=== PATIENT | female | born 1945 | race Caucasian/White ===

== ENCOUNTER → 2017-10-08 12:13 | Outpatient (CLI) | payer MEDICARE, SELFPAY ==
[2017-10-08 12:35] LABS: Color, Urine Yellow (Yellow); Glucose, Dipstick Normal (Normal); Ketone-Dipstick 5 mg/dl (Negative); Leukocyte Esterase-Dipstick 500 /ul (Negative); Nitrite-Dipstick Negative (Negative); Occult Blood-Urine 250 /ul (Negative); Protein-Dipstick 30 mg/dl (Negative); Urine Bilirubin Dipstick Negative (Negative); Urine Clarity Cloudy (Clear); Urine Urobilinogen Normal (Normal)
== END ==
PROVIDERS: Family Provider Family Medicine; PCP Family Medicine; Visit Provider Family Medicine
DX: N39.0 Urinary tract infection, site not specified (principal); R30.0 Dysuria
CPT/HCPCS: 81002; 87086; 87088; 87186

== ENCOUNTER → 2017-11-11 12:03 | Outpatient (CLI) | payer MEDICARE, BC, SELFPAY | PROVIDERS: Visit Provider Family Medicine | DX: N39.0 Urinary tract infection, site not specified (principal) | CPT/HCPCS: 87086; 87088; 87186 ==

== ENCOUNTER → 2018-09-20 12:09 | Outpatient (CLI) | payer MEDICARE, BC, SELFPAY ==
--- NOTE | 2018-09-20 12:19 | RAD_ITS ---
STUDY: X-RAY - PELVIS AND BILATERAL HIPS REASON FOR EXAM: Female, 73 years old. Left hip pain TECHNIQUE: AP view of the pelvis.? 2 views of the right hip, and 2 views of the left hip were obtained. COMPARISON: None. FINDINGS: There is a non-specific bowel gas pattern. Normal visualized soft tissue structures. Normal bilateral iliac wings, sacroiliac joints and visualized sacrum. Normal bilateral superior and inferior pubic rami. Normal pubic symphysis. Normal bilateral ischial tuberosities. 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 Normal right acetabulum. There is moderate articular joint space narrowing of the right hip. There are osteoarthritic changes of the left femoral head with marginal osteophyte formation. Normal left acetabulum. There is moderate articular joint space narrowing of the left hip. RAD/Hips B/L min 2 views w/ Pelvis IMPRESSION: Moderate degenerative changes of the hips Electronically Signed: Livan Luke DO at 11:55 EDT Tel , Service support ,
== END ==
PROVIDERS: Family Provider Family Medicine; PCP Family Medicine; Referring Provider Family Medicine; Visit Provider Family Medicine
DX: M25.559 Pain in unspecified hip (principal)
CPT/HCPCS: 73521

== ENCOUNTER → 2018-10-11 09:46 | Outpatient (CLI) | payer MEDICARE, BC, SELFPAY ==
--- NOTE | 2018-10-11 09:49 | RAD_ITS ---
PROCEDURE: Fluoroscopic guided Hip Injection DATE: October 11, 2018. INDICATION: Female, 73 years old. Chronic hip pain. PHYSICIAN: John Pierre M.D. MEDICATIONS: 40 mg of Kenalog and 4 cc of 1% lidocaine. 2% lidocaine administered subcutaneously for local anesthesia. ACCESS SITE: Left hip. NEEDLE: 22-gauge spinal needle. FLUOROSCOPY TIME (if supplied): (0:30) minutes/seconds FINDINGS: The risks, benefits, and alternatives to the procedure were explained to the patient. The specific risks of bleeding, infection, and neurovascular injury were detailed and accepted. Witnessed informed consent was obtained. A 22-gauge spinal needle was positioned under radiographic fluoroscopic localization. Approximately 2 cc of Isovue-300 instilled for localization purposes. Medication was then injected. The patient tolerated the procedure well without any immediate complications. RAD/Inj/Asp Jese Jt Should/Hip/Knee IMPRESSION: 1. Successful fluoroscopic guided hip injection. Electronically Signed: John Pierre, at 10:59 EDT , Service support ,
== END ==
PROVIDERS: Family Provider Family Medicine; PCP Family Medicine; Referring Provider Family Medicine; Visit Provider Family Medicine
DX: M16.0 Bilateral primary osteoarthritis of hip (principal)
CPT/HCPCS: 20610; 77002; Q9967

== ENCOUNTER → 2018-10-19 | Outpatient (CLI) | payer MEDICARE, BC, SELFPAY ==
[2018-10-19 12:04] LABS: Absolute Lymphocyte Count 1.74 X10^3/ul (0.83-4.51); Absolute Neutrophil Count 5.3 X10^3/uL (2.0-7.7); Basophil# 0.04 X10^3/uL; Basophil% 0.5 % (0-1); Eosinophil# 0.13 X10^3/uL; Eosinophils% 1.7 % (0-5); Hematocrit 40.6 % (37-47); Hemoglobin 13.1 g/dl (12.0-15.0); Lymphocyte # 1.74 X10^3/ul (4.0); Lymphocyte % 22.2 % (19-41); Mean Corp Hgb Conc 32.3 g/gl (32-36); Mean Corpuscular Hgb 29.1 pg (27.0-32.0); Mean Corpuscular Volume 90.2 fL (81-99); Mean Platelet Vol. 11.2 fl (6.2-12.0); Monocyte# 0.63 X10^3/uL; Neutrophil # 5.27 X10^3/uL (2.7-7.7); Neutrophil % 67.3 % (47-70); Platelet Count 260 K/mm3 (150-450); RBC Distribution Width CV 12.8 % (11.6-14.6); RBC Distribution Width SD 41.7 fl (35.1-43.9); White Blood Count 7.8 K/mm3 (4.4-11.0)
[2018-10-19 12:05] LABS: POSITIVE COUNT NO; POSITIVE DIFFERENTIAL NO; POSITIVE MORPHOLOGY NO
[2018-10-19 13:10] LABS: ALB/GLOB Ratio 1.2 RATIO (0.9-2.4); AST(SGOT) 10 U/L (15-37); Alanine Aminotransfer ALT/SGPT 23 U/L (13-56); Albumin, Serum 3.7 g/dL (3.2-5.0); Alkaline Phosphatase 65 U/L (45-117); Anion Gap 9 (5-15); BUN 14 mg/dL (7-18); BUN/Creat Ratio 16.4 RATIO (10-20); Calcium,Total 8.9 mg/dL (8.5-10.1); Chloride 110 mmol/L (98-107); Cholesterol 233 mg/dL (200); Creatinine, Serum 0.85 mg/dL (0.55-1.02); EST Glomerular Filtration Rate 69 mL/min (>60); Est Glom Filt Rate - Afr Amer 83 mL/min (>60); Globulin 3.1 g/dL (2.2-4.2); Glucose 85 mg/dL (74-106); High Density Lipoprotein 71 mg/dL; Phosphorus 3.4 mg/dL (2.5-4.9); Protein, Total 6.8 g/dL (6.4-8.2); Sodium Level 143 mmol/L (136-145); Thyroid Stim Hormone (TSH) 1.05 uIU/mL (0.358-3.74); Triglycerides 159 mg/dL; Very Low Density Lipoprotein 32 mg/dL (5-40); Vitamin D,25 Hydroxy 21.6 ng/mL (29.95-100.01)
== END | disposition home or self-care (01) ==
LOC: MFPLAB 10:37
PROVIDERS: Family Provider Family Medicine; PCP Family Medicine; Referring Provider Family Medicine; Visit Provider Family Medicine
DX: Z00.00 Encounter for general adult medical examination without abnormal findings (principal); M81.0 Age-related osteoporosis without current pathological fracture
CPT/HCPCS: 36415; 80053; 80061; 82306; 84100; 84443; 85025

== ENCOUNTER → 2019-10-24 10:33 | Outpatient (CLI) | payer MEDICARE, BC, SELFPAY ==
[2019-10-24 12:43] LABS: AST(SGOT) 14 U/L (15-37); Alanine Aminotransfer ALT/SGPT 20 U/L (13-56); Albumin, Serum 3.6 g/dL (3.2-5.0); Alkaline Phosphatase 58 U/L (45-117); Anion Gap 7 (5-15); BUN 16 mg/dL (7-18); BUN/Creat Ratio 17.6 RATIO (10-20); Calcium,Total 8.9 mg/dL (8.5-10.1); Chloride 110 mmol/L (98-107); Cholesterol 280 mg/dL (200); Creatinine, Serum 0.91 mg/dL (0.55-1.02); EST Glomerular Filtration Rate 64 mL/min (>60); Est Glom Filt Rate - Afr Amer 77 mL/min (>60); Globulin 3.5 g/dL (2.2-4.2); Glucose 98 mg/dL (74-106); High Density Lipoprotein 75 mg/dL; Phosphorus 3.6 mg/dL (2.5-4.9); Potassium 4.1 mmol/L (3.5-5.1); Protein, Total 7.1 g/dL (6.4-8.2); Sodium Level 142 mmol/L (136-145); Triglycerides 225 mg/dL; Very Low Density Lipoprotein 45 mg/dL (5-40); Vitamin D,25 Hydroxy 28.8 ng/mL
== END ==
PROVIDERS: PCP Family Medicine; Referring Provider Family Medicine; Visit Provider Family Medicine
DX: E78.5 Hyperlipidemia, unspecified (principal); E55.9 Vitamin D deficiency, unspecified; M81.0 Age-related osteoporosis without current pathological fracture
CPT/HCPCS: 36415; 80053; 80061; 82306; 84100

== ENCOUNTER → 2020-01-19 10:33 | Outpatient (CLI) | payer MEDICARE, BC, SELFPAY ==
[2020-01-19 13:07] LABS: ALB/GLOB Ratio 1.1 RATIO (0.9-2.4); AST(SGOT) 21 U/L (15-37); Alanine Aminotransfer ALT/SGPT 28 U/L (13-56); Albumin, Serum 3.9 g/dL (3.2-5.0); Alkaline Phosphatase 59 U/L (45-117); Anion Gap 7 (5-15); BUN 15 mg/dL (7-18); Calcium,Total 8.8 mg/dL (8.5-10.1); Chloride 109 mmol/L (98-107); Cholesterol 159 mg/dL (200); Creatinine, Serum 0.83 mg/dL (0.55-1.02); EST Glomerular Filtration Rate 71 mL/min (>60); Est Glom Filt Rate - Afr Amer 85 mL/min (>60); Globulin 3.4 g/dL (2.2-4.2); Glucose 97 mg/dL (74-106); High Density Lipoprotein 89 mg/dL; Protein, Total 7.3 g/dL (6.4-8.2); Sodium Level 141 mmol/L (136-145); Triglycerides 122 mg/dL; Very Low Density Lipoprotein 24 mg/dL (5-40)
== END ==
PROVIDERS: PCP Family Medicine; Referring Provider Family Medicine; Visit Provider Family Medicine
DX: E78.5 Hyperlipidemia, unspecified (principal)
CPT/HCPCS: 36415; 80053; 80061

== ENCOUNTER → 2020-12-02 11:53 | Outpatient (CLI) | payer MEDICARE, BC, SELFPAY ==
[2020-12-02 16:43] LABS: ALB/GLOB Ratio 1.1 RATIO (0.9-2.4); AST(SGOT) 18 U/L (15-37); Alanine Aminotransfer ALT/SGPT 29 U/L (13-56); Albumin, Serum 3.7 g/dL (3.2-5.0); Alkaline Phosphatase 54 U/L (45-117); Anion Gap 5 (5-15); BUN 14 mg/dL (7-18); BUN/Creat Ratio 15.4 RATIO (10-20); Calcium,Total 8.7 mg/dL (8.5-10.1); Chloride 111 mmol/L (98-107); Cholesterol 154 mg/dL (200); Creatinine, Serum 0.91 mg/dL (0.55-1.02); EST Glomerular Filtration Rate 64 mL/min (>60); Est Glom Filt Rate - Afr Amer 77 mL/min (>60); Globulin 3.4 g/dL (2.2-4.2); Glucose 97 mg/dL (74-106); High Density Lipoprotein 79 mg/dL; Potassium 3.8 mmol/L (3.5-5.1); Protein, Total 7.1 g/dL (6.4-8.2); Sodium Level 141 mmol/L (136-145); Triglycerides 147 mg/dL; Very Low Density Lipoprotein 29 mg/dL (5-40)
== END ==
PROVIDERS: PCP Family Medicine; Visit Provider Family Medicine
DX: E78.5 Hyperlipidemia, unspecified (principal)
CPT/HCPCS: 36415; 80053; 80061

== ENCOUNTER → 2021-12-08 | Outpatient (CLI) | payer MEDICARE, BC, SELFPAY ==
[2021-12-08 12:47] LABS: Vitamin D,25 Hydroxy 38.3 ng/mL
[2021-12-08 12:49] LABS: ALB/GLOB Ratio 1.1 RATIO (0.9-2.4); AST(SGOT) 21 U/L (15-37); Alanine Aminotransfer ALT/SGPT 31 U/L (13-56); Albumin, Serum 3.6 g/dL (3.2-5.0); Alkaline Phosphatase 55 U/L (45-117); Anion Gap 7 (5-15); BUN 12 mg/dL (7-18); BUN/Creat Ratio 13.8 RATIO (10-20); Calcium,Total 9.2 mg/dL (8.5-10.1); Chloride 112 mmol/L (98-107); Cholesterol 161 mg/dL (200); Creatinine, Serum 0.87 mg/dL (0.55-1.02); EST Glomerular Filtration Rate 67 mL/min (>60); Est Glom Filt Rate - Afr Amer 81 mL/min (>60); Globulin 3.2 g/dL (2.2-4.2); Glucose 96 mg/dL (74-106); High Density Lipoprotein 79 mg/dL; Potassium 4.1 mmol/L (3.5-5.1); Protein, Total 6.8 g/dL (6.4-8.2); Sodium Level 142 mmol/L (136-145); Triglycerides 158 mg/dL; Very Low Density Lipoprotein 32 mg/dL (5-40)
== END | disposition home or self-care (01) ==
LOC: MFPLAB 11:00
PROVIDERS: PCP Family Medicine; Referring Provider Family Medicine; Visit Provider Family Medicine
DX: M81.0 Age-related osteoporosis without current pathological fracture (principal); E78.5 Hyperlipidemia, unspecified
CPT/HCPCS: 36415; 80053; 80061; 82306

== ENCOUNTER → 2022-12-09 | Outpatient (CLI) | payer MEDICARE, BC, SELFPAY ==
--- NOTE | 2022-12-09 10:37 | RAD_ITS ---
ACR Level 3 findings have been noted. An addendum which confirms receipt of the report will follow. INDICATION: pain, crackles EXAMINATION/TECHNIQUE: X-RAY - XR Chest 2 Views COMPARISON: FINDINGS: LINES/DEVICES: None. LUNGS: There is a poorly defined 1 cm area of increased density in the left midlung projecting over the seventh rib posteriorly on the left. MEDIASTINUM AND CARDIOVASCULAR STRUCTURES: Cardiac silhouette not enlarged. Central airways and mediastinal contour are unremarkable. BONES AND SOFT TISSUES: Calcific densities are noted in the lower chest bilaterally possibly related to calcified breast implants. Clinical correlation recommended.. RAD/Chest PA and Lateral IMPRESSION: Likely calcified bilateral breast implants. Clinical correlation recommended. Possible nodule in the left mid to upper lung. CT chest can be obtained for further evaluation. Electronically Signed: Luis A Liang, at 11:09 EDT ,
[2022-12-09 12:47] LABS: Absolute Lymphocyte Count 1.49 X10^3/uL (0.83-4.51); Absolute Neutrophil Count 4.8 X10^3/uL (2.0-7.7); Basophil# 0.03 X10^3/uL; Basophil% 0.4 % (0-1); Eosinophil# 0.09 X10^3/uL; Eosinophils% 1.3 % (0-5); Hemoglobin 14.1 g/dL (12.0-15.0); Lymphocyte # 1.49 X10^3/ul (0.83-4.51); Lymphocyte % 21.6 % (19-41); Mean Corp Hgb Conc 31.3 g/dL (32-36); Mean Corpuscular Hgb 29.3 pg (27.0-32.0); Mean Corpuscular Volume 93.6 fL (81-99); Mean Platelet Vol. 11.1 fl (6.2-12.0); Monocyte# 0.43 X10^3/uL; Monocyte% 6.2 % (0-10); NRBC Flagged by Analyzer 0 % (0-5); Neutrophil # 4.83 X10^3/uL (2.7-7.7); Neutrophil % 70.2 % (47-70); Platelet Count 291 K/mm3 (150-450); RBC Distribution Width CV 12.6 % (11.6-14.6); RBC Distribution Width SD 43.9 fl (35.1-43.9); Red Blood Count 4.81 M/mm3 (4.2-5.4); White Blood Count 6.9 K/mm3 (4.4-11.0)
[2022-12-09 13:08] LABS: ALB/GLOB Ratio 1.1 RATIO (0.9-2.4); AST(SGOT) 13 U/L (15-37); Alanine Aminotransfer ALT/SGPT 17 U/L (13-56); Albumin, Serum 3.8 g/dL (3.2-5.0); Alkaline Phosphatase 55 U/L (45-117); Anion Gap 8 (5-15); BUN 15 mg/dL (7-18); BUN/Creat Ratio 15.3 RATIO (10-20); Calcium,Total 9.1 mg/dL (8.5-10.1); Chloride 112 mmol/L (98-107); Cholesterol 280 mg/dL (200); Creatinine, Serum 0.98 mg/dL (0.55-1.02); EST Glomerular Filtration Rate 58 mL/min (>60); Est Glom Filt Rate - Afr Amer 70 mL/min (>60); Globulin 3.6 g/dL (2.2-4.2); Glucose 99 mg/dL (74-106); High Density Lipoprotein 79 mg/dL; Potassium 4.1 mmol/L (3.5-5.1); Protein, Total 7.4 g/dL (6.4-8.2); Sodium Level 143 mmol/L (136-145); Thyroid Stim Hormone (TSH) 1.26 uIU/mL (0.358-3.74); Triglycerides 186 mg/dL; Very Low Density Lipoprotein 37 mg/dL (5-40)
== END | disposition home or self-care (01) ==
PROVIDERS: PCP Family Medicine; Referring Provider Family Medicine; Visit Provider Family Medicine
DX: R07.9 Chest pain, unspecified (principal); E78.5 Hyperlipidemia, unspecified
CPT/HCPCS: 36415; 71046; 80053; 80061; 84443; 85025

== ENCOUNTER → 2023-01-01 | Outpatient (CLI) | payer MEDICARE, BC, SELFPAY ==
--- NOTE | 2023-01-01 06:51 | CT_ITS ---
ACR Level 3 findings have been noted. An addendum which confirms receipt of the report will follow. EXAM: CT CHEST WITHOUT INTRAVENOUS CONTRAST CLINICAL INDICATION: LUNG NODULE, ABNORMAL X RAY TECHNIQUE: Helically acquired images were obtained of the chest without intravenous contrast. This CT exam was performed using one or more of the following dose reduction techniques: automated exposure control, adjustment of the mA and/or kV according to patient size, and/or use of iterative reconstruction technique. RADIATION DOSE: CTDIvol = 8.38 mGy, DLP = 293.08 mGy-cm COMPARISON: Chest x-ray 12/09/2022. FINDINGS: LUNGS AND PLEURAL SPACES: Unremarkable. No mass. No consolidation or edema. No pleural effusion or thickening. No pneumothorax. HEART: Unremarkable. Heart size is normal. No pericardial effusion. No significant coronary artery calcifications. MEDIASTINUM: Unremarkable. No mediastinal or hilar adenopathy. Esophagus is unremarkable. No hiatal hernia. THYROID: Unremarkable. No thyroid lesions. BONES/JOINTS: The apparent nodule noted on the chest x-ray represents a bony bridge between the third and fourth ribs anterolaterally on the left. No suspicious lytic or blastic abnormality. SOFT TISSUES: Subareolar left breast mass measuring 2.3 x 1.7 x 2.0 cm. Mass measuring 2.5 x 1.8 x 1.7 cm inferiorly in the right breast abutting breast implant. Calcified bilateral breast implants. VASCULATURE: Unremarkable. Thoracic aorta is non-dilated. CT/Chest without Contrast IMPRESSION: 1. The apparent nodule noted on the chest x-ray represents a bony bridge between the third and fourth ribs anterolaterally on the left. No pulmonary nodule. 2. Left-sided breast masses in the subareolar and inferior aspects of the left breast adjacent to the breast implant. Recommend follow-up and comparison with prior studies. Electronically Signed: Rudy Lugo MD at 7:55 EDT ,
--- NOTE | 2023-01-01 15:16 | STRESSREP_ITS ---
Stress Test Report Treadmill sestamibi myocardial perfusion stress test. Indication; 77-year-old female symptoms of chest pain retrosternal radiating to the left arm and to the throat no other associated symptoms reported. Stress protocol: Resting EKG demonstrates. Normal sinus rhythm. This patient exercised according to standard Terence protocol For a total of 3 minutes Achieving a work level of max METS 4.6 Resting heart rate of 57 bpm. Maximal heart rate achieved is 125 bpm. This value represented 88% of the maximal age predicted heart rate. Resting blood pressure of 144/62 mmHg. At maximal stress the blood pressure recorded 202/60 mmHg. The exercise treadmill test was terminated due to target heart rate achieved patient also experienced symptoms of shortness of breath. Myocardial perfusion protocol. 13 mCi ]of Technetium 99m Sestamibi was injected at rest. Following maximal stress 40.1 mCi ]of Technetium 99m sestamibi was injected. Stress images were obtained stress and rest images were reconstructed and compared in the short axis vertical and horizontal long axis. Gated images were also obtained Perfusion SPECT analysis: Review of the images demonstrate normal uptake of sestamibi at rest, post stress images demonstrate similar uptake of sestamibi to the resting images, homogeneous tracer uptake With no evidence of reversible myocardial ischemia. Gated SPECT analysis: The gated ejection fraction is 59%. Normal LV wall motion and normal LV systolic function Conclusion: Negative treadmill sestamibi myocardial fusion study for significant ischemia Normal LV systolic function and normal LV wall motion. Amanuel Braden MD,FACC,[facility]
== END | disposition home or self-care (01) ==
LOC: CT 06:39
PROVIDERS: PCP Family Medicine; Referring Provider Family Medicine; Visit Provider Family Medicine
DX: R91.1 Solitary pulmonary nodule (principal); R07.9 Chest pain, unspecified
CPT/HCPCS: 71250; 78452; 93017; A9500; A4216

== ENCOUNTER → 2023-01-06 | Outpatient (CLI) | payer MEDICARE, BC, SELFPAY ==
--- NOTE | 2023-01-06 11:20 | RAD_ITS ---
STUDY: X-RAY - ABDOMEN/PELVIS REASON FOR EXAM: Female, 77 years old. Lower quadrant pain. TECHNIQUE: AP supine and upright views of the abdomen and pelvis on 4 images. COMPARISON: None. FINDINGS: Normal visualized lung bases. Normal bowel gas pattern with air seen to the rectosigmoid. No disproportionate dilatation of bowel or free intra-abdominal air identified. . The visualized liver, spleen and kidneys are grossly normal in size and morphology. Normal soft tissue structures. Normal visualized osseous structures. RAD/Abd Inc Decub and/or Erect IMPRESSION: No acute abnormality of the lower chest, abdomen or pelvis. Electronically Signed: Rodney Espinoza MD at 14:25 EDT ,
== END | disposition home or self-care (01) ==
PROVIDERS: PCP Family Medicine; Referring Provider Family Medicine; Visit Provider Family Medicine
DX: R10.9 Unspecified abdominal pain (principal)
CPT/HCPCS: 74019

== ENCOUNTER → 2023-01-08 | Outpatient (CLI) | payer MEDICARE, BC, SELFPAY ==
--- NOTE | 2023-01-08 12:38 | US_ITS ---
STUDY: ULTRASOUND BREAST - RIGHT REASON FOR EXAM: Female, 77 years old. Left breast masses seen on CT scan. Axillary lymph nodes. TECHNIQUE: Axial and longitudinal images of the RIGHT breast were performed with a high resolution ultrasound transducer. # OF IMAGES: 48 COMPARISON: Comparison is made with prior mammogram done earlier today. FINDINGS: RIGHT Breast: The axillary region of the right breast was examined by ultrasound. Mildly enlarged right axillary lymph nodes are seen. The largest measures 1.4 cm x 1.3 cm x 0.8 cm. They are slightly hyperechoic. Biopsy indicated. IMPRESSION: Heterogeneous enlargement of the right axillary lymph nodes. Biopsy recommended. ASSESSMENT CATEGORY: BIRADS Category 4: Suspicious - Biopsy Should Be Considered. A letter regarding these results will be sent to the patient by the facility within 30 days. Electronically Signed: John Pierre MD at 16:33 EDT , STUDY: ULTRASOUND BREAST - LEFT REASON FOR EXAM: Female, 77 years old. Left breast nodules. TECHNIQUE: Axial and longitudinal images of the LEFT breast were performed with a high resolution ultrasound transducer. # OF IMAGES: 48 COMPARISON: Comparison is made with prior mammogram done earlier today. FINDINGS: LEFT Breast: The lower half of the left breast was examined with ultrasound. There is a 2 cm x 2.6 x 1.2 cm echogenic nodule with posterior acoustical shadowing at the 6:00 position of the breast at 3 cm from the nipple. Biopsy recommended. Enlarged left axillary lymph node measuring 1.8 cm x 1.5 cm x 0.9 cm. US/Breast Limited Unilateral IMPRESSION: 2.6 cm x 2 cm x 1.2 cm echogenic nodule with posterior acoustical shadowing at the 6:00 position breast at 3 cm from the nipple. Biopsy recommended. Enlarged left axillary lymph nodes. ASSESSMENT CATEGORY: BIRADS Category 4: Suspicious - Biopsy Should Be Considered. A letter regarding these results will be sent to the patient by the facility within 30 days. Electronically Signed: John Pierre MD at 16:34 EDT ,
--- NOTE | 2023-01-08 12:38 | BI_ITS ---
MAMMOGRAPHY - BILATERAL DIAGNOSTIC REASON FOR EXAM: Female, 77 years old. History of bilateral breast masses. PERTINENT HISTORY: Daughter with breast cancer. Bilateral breast implants. TECHNIQUE: Digital bilateral breast shadi (3D mammographic acquisition) in the CC and MLO projections. 2-D mediolateral oblique (MLO) and craniocaudad (CC) views of both breasts were obtained. CAD: Full Field Digital Mammography with Computer Added Detection was performed. COMPARISON: None. Baseline examination. FINDINGS: Breast Composition: There are scattered areas of fibroglandular density. Calcification of the bilateral breast implants. There is a 2.2 cm x 1.5 cm irregular nodular density in the central deep aspect of the left breast. Microcalcifications are seen within it. Enlarged bilateral axillary lymph nodes. No other significant abnormalities are identified. BI/DIAG MAMM W/CAD, BILAT IMPRESSION: 2.2 cm x 1.5 cm irregular nodular density in the central deep aspect of the left breast with microcalcifications. Enlargement of the bilateral axillary lymph nodes. Dense calcification of the bilateral breast implants. Correlation with ultrasound is recommended. ASSESSMENT CATEGORY: BIRADS Category 0: Incomplete. Need additional imaging evaluation. A letter regarding these results will be sent to the patient by the facility within 30 days. Approximately 10% of breast cancers are not detected by mammography. A normal mammogram should not delay biopsy of a clinically suspicious abnormality. Electronically Signed: John Pierre MD at 11:11 EDT ,
== END | disposition home or self-care (01) ==
LOC: OPBI 12:38
PROVIDERS: PCP Family Medicine; Referring Provider Family Medicine; Visit Provider Family Medicine
DX: R92.8 Other abnormal and inconclusive findings on diagnostic imaging of breast (principal)
CPT/HCPCS: 76642; 77062; 77066; G0279

== ENCOUNTER → 2023-12-15 | Outpatient (CLI) | payer MEDICARE, BC, SELFPAY ==
[2023-12-15 12:56] LABS: PTHIN 55.1 pg/mL (18.4-80.1)
[2023-12-15 13:06] LABS: Vitamin D,25 Hydroxy 32.5 ng/mL
[2023-12-15 13:22] LABS: ALB/GLOB Ratio 1.1 RATIO (0.9-2.4); AST(SGOT) 18 U/L (15-37); Alanine Aminotransfer ALT/SGPT 21 U/L (13-56); Albumin, Serum 3.8 g/dL (3.2-5.0); Alkaline Phosphatase 55 U/L (45-117); Anion Gap 9 (5-15); BUN 17 mg/dL (7-18); BUN/Creat Ratio 17.9 RATIO (10-20); Calcium,Total 9.2 mg/dL (8.5-10.1); Chloride 110 mmol/L (98-107); Cholesterol 205 mg/dL (200); Creatinine, Serum 0.95 mg/dL (0.55-1.02); EST Glomerular Filtration Rate 60 mL/min (>60); Est Glom Filt Rate - Afr Amer 72 mL/min (>60); Globulin 3.5 g/dL (2.2-4.2); Glucose 103 mg/dL (74-106); High Density Lipoprotein 75 mg/dL; Potassium 4.1 mmol/L (3.5-5.1); Protein, Total 7.3 g/dL (6.4-8.2); Sodium Level 140 mmol/L (136-145); Thyroid Stim Hormone (TSH) 1.11 uIU/mL (0.358-3.74); Triglycerides 163 mg/dL; Very Low Density Lipoprotein 33 mg/dL (5-40)
== END | disposition home or self-care (01) ==
LOC: MFPLAB 10:55
PROVIDERS: PCP Family Medicine; Visit Provider Family Medicine
DX: I10 Essential (primary) hypertension (principal); E78.5 Hyperlipidemia, unspecified; M81.0 Age-related osteoporosis without current pathological fracture
CPT/HCPCS: 36415; 80053; 80061; 82306; 83970; 84443

== ENCOUNTER → 2024-09-07 | Outpatient (CLI) | payer MEDICARE, BC, SELFPAY ==
--- NOTE | 2024-09-07 11:21 | RAD_ITS ---
PROCEDURE: ABD INC DECUB AND/OR ERECT 09/07/2024 REASON FOR EXAM: CHANGE IN BOWEL HABIT TECHNIQUE: Supine and upright view abdomen. FINDINGS: Bowel gas: Bowel gas pattern is normal. No evidence of bowel obstruction. Calcifications: No suspicious calcifications. Bones: The bones are unremarkable. Other: RAD/Abd Inc Decub and/or Erect IMPRESSION: No bowel obstruction or pneumoperitoneum. Reading Location: [id number]
[2024-09-07 15:58] LABS: Absolute Lymphocyte Count 2.11 X10^3/uL (0.83-4.51); Absolute Neutrophil Count 5.5 X10^3/uL (2.0-7.7); Basophil# 0.06 X10^3/uL; Basophil% 0.7 % (0-1); Eosinophil# 0.11 X10^3/uL; Eosinophils% 1.3 % (0-5); Hematocrit 40.5 % (37-47); Lymphocyte # 2.11 X10^3/ul (0.83-4.51); Lymphocyte % 25.1 % (19-41); Mean Corp Hgb Conc 32.1 g/dL (32-36); Mean Corpuscular Hgb 29.5 pg (27.0-32.0); Mean Platelet Vol. 11.6 fl (6.2-12.0); Monocyte# 0.62 X10^3/uL; Monocyte% 7.4 % (0-10); NRBC Flagged by Analyzer 0 % (0-5); Neutrophil % 65.3 % (47-70); Platelet Count 280 K/mm3 (150-450); RBC Distribution Width CV 12.6 % (11.6-14.6); RBC Distribution Width SD 42.8 fl (35.1-43.9); White Blood Count 8.4 K/mm3 (4.4-11.0)
[2024-09-07 16:10] LABS: Erythrocyte Sedimentation Rate 18 mm/hr (0-30)
[2024-09-07 16:34] LABS: ALB/GLOB Ratio 1.5 RATIO (0.9-2.4); AST(SGOT) 19 U/L (<=31); Alanine Aminotransfer ALT/SGPT 12 U/L (<=34); Albumin, Serum 4.2 g/dL (3.4-4.8); Alkaline Phosphatase 61 U/L (35-104); Anion Gap 15 (5-15); BUN 15 mg/dL (4-19); BUN/Creat Ratio 16.9 RATIO (10-20); Calcium,Total 9.6 mg/dL (7.6-11.0); Carbon Dioxide 19.7 mmol/L (21.0-32.0); Chloride 107 mmol/L (98-108); EST Glomerular Filtration Rate 64 (>60); Globulin 2.9 g/dL (2.2-4.2); Glucose 92 mg/dL (70-99); Potassium 3.9 mmol/L (3.3-5.1); Protein, Total 7.1 g/dL (5.9-8.4); Sodium Level 142 mmol/L (133-145); Total Bilirubin 0.68 mg/dL (0.00-1.30)
== END | disposition home or self-care (01) ==
LOC: MTLAB 11:19
PROVIDERS: PCP Family Medicine; Referring Provider Family Medicine; Visit Provider Family Medicine
DX: R19.4 Change in bowel habit (principal)
CPT/HCPCS: 36415; 74019; 80053; 84443; 85025; 85652

== ENCOUNTER 2024-10-27 14:05 | Outpatient (CLI) | payer MEDICARE, BC, SELFPAY ==
--- NOTE | 2024-10-27 12:55 | BRBX_PTH ---
PATIENT: KARL CABA LOC: [facility] U#:[id number] AGE/SX: 79/F ROOM: RE10/27/[address]: Dr. Jas Palmer MD : 1945 BED: DIS: 10/27/2024 SPEC #: [id number] RECD: 10/27/24 13:55 STATUS: MATT REAllan #: [id number] LLUVIA: 10/27/24 12:[address]: Jas Palmer DEPT: SURGICAL PATHOLOGY RECD BY: Randy Su ENTERED: 10/27/24 15:25 SP TYPE: BREAST BX OTHR DR: Dr. Tomás Baker MD Tissues: A - Left breast, NOS B - Axillary lymph node, NOS Procedures: Immunohistochemical Stains Surgery Specimen Level IV IHC Stain ADDITIONAL HEADER OPERATION: Core needle biopsy of left breast mass and lymph node PRE-OP DIAGNOSIS: Left breast mass TISSUE SUBMITTED: A- Left breast mass biopsy, B- Lymph node, left axilla biopsy Ischemic Time: 1 minute Fixation Time: 7 hours MICROSCOPIC DIAGNOSIS A. Left breast mass, core biopsy: * Invasive ductal carcinoma NST, Grade 2 (tubule 3, nuclear 2, mitosis 1) at least 0.8 cm. * Estrogen Receptor: positive (100%, strong intensity) * Progesterone Receptor: positive (100%, strong intensity) * [id number]: pending, to be reported in an addendum. * See Comment. B. 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 * Note: Although the tumor is compatible with the breast primary observed in part A, there are mild histologic differences; therefore IHC was performed - see Comment. * Estrogen Receptor: positive (100%, strong intensity) * Progesterone Receptor: positive (80%, strong intensity) * [id number]: pending, to be reported in an addendum. COMMENT A, B) Additional IHCs were performed on both specimens A and B, and both tissues reacted similarly: Positive: E-cadherin, SANDY-3, CK7, Synaptophysin. Negative: CK5/6, p40, Mammaglobin, CK20, Chromogranin (part B shows weak positivity for Chromogranin). MICROSCOPIC DESCRIPTION Slides are reviewed. All matched controls reacted appropriately. These tests were developed and their performance characteristics determined by [facility]. They may not have been cleared or approved by the U.S. Food and Drug Administration. The FDA has determined that such clearance or approval is not necessary.? The above immunohistochemical/dualISH?markers are ordered and reviewed by the Pathologist. GROSS DESCRIPTION Received in 2 formalin containers labeled patient's name and date of .? Designated as: A.? #1 left breast tissue are 2 cowart soft tissue cores, 1.2 cm and 2.2 cm in length by 0.1 cm in diameter.? Entirely submitted in 1 cassette. Cold ischemic time: 1 minuteFormalin fixation time: 7 hours B.? #2 left axillary lymph node biopsy are 2 cowart soft tissue fragments, 0.9 cm and a 1.1 cm in length by 0.1 cm in diameter.? Entirely submitted in 1 cassette. IN 10/27/2024 CPT:03523c9, [id number], [id number] ADDENDUM ADDENDUM ADDENDUM ADDENDUM ADDENDUM ADDENDUM 11/06/2024 14:57 ADDENDUM 11/07/2024 13:39 ADDENDUM 11/15/2024 09:00 ADDENDUM 11/06/2024 14:57 ADDENDUM 11/06/2024 14:57 ADDENDUM 11/06/2024 14:57 ADDENDUM 11/06/2024 14:57 This addendum is to report the results of the Ki67 proliferative index (as determined by manual immunohistochemistry method). A. The Ki67 proliferative index is approximately 30-35%. B. The Ki67 proliferative index is approximately 35-40%. This addendum is to report the RSW0UFS results: A. UDN3OGD: equivocal (2+) B. UFL1GJM: equivocal (2+) [id number] is pending at [facility] and will be reported in a subsequent addendum. This addendum is added to incorporate an outside pathology consultation report. The case was examined at [facility] (#[id number] A1 , B1) and the following diagnosis was rendered. A. Left breast mass, core biopsy: Her2 : Negative HER2 SCORE REPORT: HER2 SCORE: NEGATIVE HER2 / CEP17 RATIO: 1.3 HER2 COPY NUMBER / CELL: 3.9 B. Lymph node, left axilla, biopsy: Her2 : Negative HER2 SCORE REPORT: HER2 SCORE: NEGATIVE HER2 / CEP17 RATIO: 1.2 HER2 COPY NUMBER / CELL: 3.9 Please see complete above mentioned consultation report in EMR
== END 2024-10-27 23:59 | disposition home or self-care (01) ==
LOC: LABSPEC 14:08
PROVIDERS: PCP Family Medicine; Referring Provider Surgery; Visit Provider Surgery
DX: C50.912 Malignant neoplasm of unspecified site of left female breast (principal); N63.20 Unspecified lump in the left breast, unspecified quadrant
CPT/HCPCS: 88305; 88341; 88342

== ENCOUNTER 2024-11-22 13:59 | Observation (INO) | payer MEDICARE, BC, SELFPAY ==
--- NOTE | 2024-11-21 10:43 | EKG12_ITS ---
Test Reason : PRE OP Blood Pressure : */* mmHG Vent. Rate : 82 BPM Atrial Rate : 82 BPM P-R Int : 150 ms QRS Dur : 88 ms QT Int : 394 ms P-R-T Axes : 67 60 81 degrees QTcB Int : 460 ms Normal sinus rhythm Nonspecific ST and T wave abnormality Abnormal ECG Confirmed by YAZAN ALMAGUER, LOIS ([id number]), city editor CHRISTIAN CR ([id number]) on 11/22/2024 7:13:25 AM Referred By: Jas Palmer Confirmed By: LOIS HAND MD
--- NOTE | 2024-11-21 18:32 | PAT.ANESEVAL ---
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 When Was Last Pacemaker Check QUESTION #4 FULL TEXT: You/Your Family Experience fever (hyperthermia) with Anesthesia Last Oral Intake Last Oral intake: Last Oral Intake NPO since Meds taken in AM with sips of water? 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 Female Yes 11/21/24 08:31 HX of Motion Sickness No 11/21/24 08:31 HX of N/V After Surgery No 11/21/24 08:31 Non-Smoker Yes 11/21/24 08:31 Duration of Surgery greater Yes 11/21/24 08:31 than 60 minutes Number of Risk Factors 3 11/21/24 08:31 PONV Score Moderate Risk 11/21/24 08:31 Height & Weight Height & Weight: Anesthesia: Height & Weight Height 5 ft 1 in 11/16/24 13:31 Respiratory Assessment Respiratory Assessment - rounding machine operator: Respiratory Tract Infection Hx - rounding machine operator Hx Respiratory Tract Infection No 11/21/24 08:31 STOP Sleep Apnea STOP Sleep Apnea - rounding machine operator: STOP Sleep Apnea - rounding machine operator Hx Hypertension Yes: CONTROLLED WITH MED 11/21/24 08:31 Hx Sleep Apnea No 11/21/24 08:31 CPAP BIPAP Do you snore loudly (louder No 11/21/24 08:31 than talking or can be heard Do you often feel tired/ No 11/21/24 08:31 fatigued/ sleepy during daytime? Has anyone observed you stop No 11/21/24 08:31 breathing during sleep? STOP Results Negative 11/21/24 08:31 QUESTION #5 FULL TEXT : Do you snore loudly (louder than talking or can be heard through closed doors)? 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 Specify any problems Hx of Preganancy in last 3 No 11/21/24 08:31 Months Nurse Filling Out Transfusion DSCHRIBER 11/21/24 08:31 & Questions: Date: 11/21/24 11/21/24 08:31 Time: 08:33 11/21/24 08:31 Patient unable to answer at this time (ie. confused, unrespo /Reproduction History /Reproductive History - rounding machine operator: /Reproductive Hx- rounding machine operator Hx Now No 11/21/24 08:31 Gestational Age (in weeks): EDC: Hx Hx Para Hx Section SAB No 11/21/24 08:31 Active Medications Active Medications: Current Medications Generic Name Dose Route Start Last Admin Trade Name Freq PRN Reason Stop Dose Admin Cefazolin Sodium 2 gm/ Sodium 110 mls @ 200 mls/hr 11/22/24 13:00 Chloride IV 11/22/24 13:32 INTRAOP ONE [facility] Medical History (Updated 11/21/24 @ 08:40 by Angelika Wick) Loss of hearing Wears glasses Post-menopausal Anxiety Alcohol use Headache History of diverticulosis Shortness of breath on exertion Non-smoker History of stress test Breast cancer Mass of left breast High cholesterol HTN (hypertension) Home Medications ?Medication ?Instructions ?Recorded ?Last Taken ?Type aspirin 81 mg tablet 81 mg PO QDAY 10/27/24 Unknown History lisinopril 40 mg tablet 40 mg PO QDAY 10/27/24 Unknown History pravastatin 10 mg tablet 10 mg PO QDAY 10/27/24 Unknown History Allergy/AdvReac Type Severity Reaction Status Date / Time adhesive Allergy Rash Verified 11/21/24 08:29 Family History Daughter Breast cancer Father Heart disease Surgical History (Updated 11/21/24 @ 08:40 by Angelika Wick) Hx of colonoscopy Hx of tonsillectomy S/P hysterectomy S/P bilateral breast implants Social History Smoking Status: Never smoker alcohol intake: current substance use type: does not use additional social history: pt denies blood clotting issues denies vaping, denies edibles, denies marijuana use. Audit: Pertinent Findings Pertinent Findings EKG Perinent findings: November 21, 2024. Normal sinus rhythm. Nonspecific ST and T wave abnormality. Stress test pertinent findings: January 01, 2023. EF of 59%. Negative treadmill perfusion study for significant ischemia. Recommendation Anesthesia Recommendation Anesthesia recommendation: OPTIMIZED for anesthesia
[2024-11-22] VITALS (15 sets, daily range): BP systolic 118–197; BP diastolic 49–97; PULSE 65–86; RESP 16–18; TEMP 36.4–36.8; O2SAT 92–100; BMI 28.3; BMI 29.5
--- NOTE | 2024-11-22 11:44 | PCM.HP.BLA ---
History and Physical Date of Admission: 11/22/24 Intake Vital Signs 10/28/2511:41 11/17/2507:00 Height 5 ft 1 in Weight: 151 lb BMI 28.5 BP 195/78 H 193/76 H Blood Pressure Location Rt brachial Position Sitting Sitting Respiration 17 17 Pulse 67 74 Pulse Source Monitor Monitor Pulse Oximetry (%) 97 Oxygen Delivery Method room air room air Intake Visit Reasons: Discuss possible surgery Chief Complaint: discuss surgery Is patient in pain?: No Allergies adhesive Allergy (Verified 11/16/24 08:02) Rash Medications ?Medication ?Instructions ?Recorded ?Confirmed ?Type aspirin 81 mg tablet 81 mg PO QDAY 10/27/24 11/16/24 History lisinopril 40 mg tablet 40 mg PO QDAY 10/27/24 11/16/24 History pravastatin 10 mg tablet 10 mg PO QDAY 10/27/24 11/16/24 History Have you fallen in the past year?: No PFSH Medical History Breast cancer Mass of left breast High cholesterol HTN (hypertension) Surgical History (Updated 10/27/24 @ 12:31 by Yvette De Jesus) S/P hysterectomy S/P bilateral breast implants Family History (Updated 10/27/24 @ 12:32 by Yvette De Jesus) Daughter Breast cancerFather Heart disease Social History (Updated 10/27/24 @ 12:32 by Yvette De Jesus) Smoking Status: Never smoker alcohol intake: current HPI HPI HPI: Patient is an 79-year-old female with left breast cancer. She is here because the mass continues to bleed through her nipple. She is having blood loss daily. ROS General General: No weight change, appetite, fatigue, colon cancer, breast cancer or weakness HEENT HEENT: No difficulty swallowing, eye injury, eye surgery, swollen glands or hoarseness Endo Endocrine: No thyroid disease, diabetes mellitus, thyroid cancer, Hair loss, heat intolerance or cold intolerance Skin Skin: No rash or changing moles Breast Breast: No left breast lump, right breast lump, nipple discharge, breast pain, abnormal mammogram, abnormal US or breast enlargement Musc Musculoskeletal: No back problems, arthritis, rheumatoid arthritis, gout or joint pain Cardio Cardiovascular: No murmur, pacemaker, heart disease, atrial fibrillation, high blood pressure, heart attack, heart stent, palpitations, shortness of breath with exertion or chest pain Psych Psychiatric: No depression, anxiety or hearing voices Resp Respiratory: No shortness of breath, No sleep apnea, Yes cough, No COPD, No asthma, No emphysema and No wheezing Gastro Gastrointestinal: No abdominal pain, No nausea or vomiting, Yes diarrhea, Yes constipation, No blood in stool, No acid reflux, No hemorrhoids, No ulcers, No gallbladder problem and No black,tarry stools [place] Hematologic: No blood thinners, No blood disorders, Yes bleeding, No anemia and No blood clots Neuro Neurologic: No system reviewed and no additional complaints, except as documented, No as per HPI, No abnormal gait, No abnormal hearing, No abnormal movements, No abnormal speech, No behavioral changes, No burning sensations, No confusion, No convulsions, No disequilibrium, No dizziness, No localized weakness, No frequent falls, No headache(s), No lack of coordination, No loss of vision, No memory loss, Yes numbness, No other visual disturbances, No radicular pain, No restless legs, No sensory deficit, No syncope, Yes tingling, No tremor(s), No weakness and No other Exam Const General: cooperative Orientation: alert and oriented x3 HENMT Head: normal to inspection Neck Neck: normal visual inspection and full ROM Chest Chest palpation & inspection: normal inspection of the chest Resp Effort & Inspection: normal respiratory effort Auscultation: clear to auscultation bilaterally Cardio Rate: regular rate Rhythm: regular rhythm GI Inspection: non-distended Palpation: soft and nontender Skin General: no rashes or lesions noted Neuro General: patient alert and patient oriented x3 Extrem General: full ROM Psych Appearance: grossly normal Mental Status: mental status grossly normal Assessment and Plan Assessment and Plan (1) Breast cancer: Status: Acute Qualifiers: Breast location: central portion of breast Estrogen receptor status: positive Patient sex: female Laterality: left Qualified Code(s): C50.112 - Malignant neoplasm of central portion of left female breast; Z17.0 - Estrogen receptor positive status [ER+] Plan: The patient has breast cancer on the left. She has decided she does not want chemotherapy or radiation. Continues to bleed daily. There is a significant amount of bleeding and she does show me pictures of her close that are saturated in blood. She would like a mastectomy to clear this up so that she stops bleeding. She has breast implants. I discussed the case with Dr. Mathew. I plan to perform a palliative mastectomy with implant removal. I discussed this with her in detail. I discussed the risks including but not limited to bleeding, infection, injury to underlying organs. I also discussed that this is not curative as she already has metastatic disease. I still encouraged her to see the oncologist to discuss possible treatment. They will also perform metastatic workup. Plan for mastectomy on November 22 with assistance from plastics. Jas Palmer MD Pager: [facility] [address] [place] [address], [address] [place] [address] Office: I have examined the patient and the H&P has been reviewed. There are no clinical changes since date of exam.
--- NOTE | 2024-11-22 11:53 | PCM.PRE.AN2 ---
ASA Classification* ASA Classification ASA Classification: 2 Assessment & Plan Anesthesia* Anesthesia Assessment Anesthesia Assessment: Discussed sedation and/or anesthesia options, risks, benefits, and alternatives with patient/parents/legal guardian/POA. Questions invited. The patient/parents/legal guardian/POA seems to understand and agrees to proceed with anesthesia plan. Reviewed the physical assessment, medical history, allergy history and patient home medications list prior to surgery/procedure/anesthetic and documented any changes. Performed airway and anesthesia risk assessments. Anesthesia Type Anesthesia Type: General History Source History Obtained from:: Patient and Chart Anesthesia Focused Assessment* Oxygen Delivery Method: Room Air Airway Assessment Mouth opens: >3 cm Mallampati Score: II Teeth Condition: Caps/Crowns Neck Range of motion (ROM): Limited ROM Labs Anesthesia Preop lab: CBC WBC 8.4 K/mm3 (4.4-11.0) 09/07/24 11:09/07/24 RBC 4.40 M/mm3 (4.2-5.4) 09/07/24 11:09/07/24 Hgb 13.0 g/dL (12.0-15.0) 09/07/24 11:09/07/24 Hct 40.5 % (37-47) 09/07/24 11:09/07/24 Plt Count 280 K/mm3 (150-450) 09/07/24 11:09/07/24 CHEMISTRY Potassium 3.9 mmol/L (3.3-5.1) 09/07/24 11:09/07/24 Sodium 142 mmol/L (133-145) 09/07/24 11:09/07/24 Phosphorus 3.6 mg/dL (2.5-4.9) 10/24/19 10:38 10/24/19 BUN 15 mg/dL (4-19) 09/07/24 11:09/07/24 Creatinine 0.90 mg/dL (0.70-1.20) 09/07/24 11:09/07/24 Glucose 92 mg/dL (70-99) 09/07/24 11:09/07/24 TSH 1.050 uIU/mL (0.300-4.200) 09/07/24 11:09/07/24 COAG Pre-Assessment Diagnosis/Proposed Procedure Planned Operative Procedure(s): LEFT MASTECTOMY AND LEFT IMPLANT REMOVAL Anesthesia History Anesthesia History - reinforcing steel placer: Anesthesia History - reinforcing steel placer Hx Hospitalization No 11/21/24 08:31 Any Problems With Anesthesia No 11/21/24 08:31 Cholinesterase deficiency No 11/21/24 08:31 You/Your Family Experience No 11/21/24 08:31 fever (hyperthermia) with Relationship Recent Exposure to Contagious Disease Does patient have nerve No 11/21/24 08:31 stimulator Patient instructed to have device shut off --Does patient have Pacemaker or ICD? When Was Last Pacemaker Check QUESTION #4 FULL TEXT: You/Your Family Experience fever (hyperthermia) with Anesthesia Last Oral Intake Last Oral intake: Last Oral Intake NPO since Meds taken in AM with sips of water? Meds patient instructed to take am of surgery PONV PONV - reinforcing steel placer: PONV - reinforcing steel placer Female Yes 11/21/24 08:31 HX of Motion Sickness No 11/21/24 08:31 HX of N/V After Surgery No 11/21/24 08:31 Non-Smoker Yes 11/21/24 08:31 Duration of Surgery greater Yes 11/21/24 08:31 than 60 minutes Number of Risk Factors 3 11/21/24 08:31 PONV Score Moderate Risk 11/21/24 08:31 Height & Weight Height & Weight: Anesthesia: Height & Weight Height 5 ft 1 in 11/16/24 13:31 Respiratory Assessment Respiratory Assessment - reinforcing steel placer: Respiratory Tract Infection Hx - reinforcing steel placer Hx Respiratory Tract Infection No 11/21/24 08:31 STOP Sleep Apnea STOP Sleep Apnea - reinforcing steel placer: STOP Sleep Apnea - reinforcing steel placer Hx Hypertension Yes: CONTROLLED WITH MED 11/21/24 08:31 Hx Sleep Apnea No 11/21/24 08:31 CPAP BIPAP Do you snore loudly (louder No 11/21/24 08:31 than talking or can be heard Do you often feel tired/ No 11/21/24 08:31 fatigued/ sleepy during daytime? Has anyone observed you stop No 11/21/24 08:31 breathing during sleep? STOP Results Negative 11/21/24 08:31 QUESTION #5 FULL TEXT : Do you snore loudly (louder than talking or can be heard through closed doors)? 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 Specify any problems Hx of Preganancy in last 3 No 11/21/24 08:31 Months Nurse Filling Out Transfusion DSCHRIBER 11/21/24 08:31 & Questions: Date: 11/21/24 11/21/24 08:31 Time: 08:33 11/21/24 08:31 Patient unable to answer at this time (ie. confused, unrespo /Reproduction History /Reproductive History - reinforcing steel placer: /Reproductive Hx- reinforcing steel placer Hx Now No 11/21/24 08:31 Gestational Age (in weeks): EDC: Hx Hx Para Hx Section SAB No 11/21/24 08:31 Active Medications Active Medications: Current Medications Generic Name Dose Route Start Last Admin Trade Name Freq PRN Reason Stop Dose Admin Cefazolin Sodium 2 gm/ Sodium 110 mls @ 200 mls/hr 11/22/24 13:00 Chloride IV 11/22/24 13:32 INTRAOP ONE Lactated Ringer's 1,000 mls @ 15 mls/hr 11/22/24 11:30 IV .Q48H DELMIS PFSH Medical History (Updated 11/21/24 @ 08:40 by Angelika Wick) Loss of hearing Wears glasses Post-menopausal Anxiety Alcohol use Headache History of diverticulosis Shortness of breath on exertion Non-smoker History of stress test Breast cancer Mass of left breast High cholesterol HTN (hypertension) Home Medications ?Medication ?Instructions ?Recorded ?Last Taken ?Type aspirin 81 mg tablet 81 mg PO QDAY 10/27/24 Unknown History lisinopril 40 mg tablet 40 mg PO QDAY 10/27/24 Unknown History pravastatin 10 mg tablet 10 mg PO QDAY 10/27/24 Unknown History Allergy/AdvReac Type Severity Reaction Status Date / Time adhesive Allergy Rash Verified 11/22/24 11:55 Family History Daughter Breast cancer Father Heart disease Surgical History (Updated 11/21/24 @ 08:40 by Angelika Wick) Hx of colonoscopy Hx of tonsillectomy S/P hysterectomy S/P bilateral breast implants Social History Smoking Status: Never smoker alcohol intake: current substance use type: does not use additional social history: pt denies blood clotting issues denies vaping, denies edibles, denies marijuana use. Review of Systems (Anesthesia) ROS Narrative System reviewed and no additional complaints, except as documented.
[2024-11-22] MEDS: Lactated Ringers 1,000 ML 15 ML IV (12:02)
--- NOTE | 2024-11-22 12:33 | PCM.HP.STD ---
HPI - General General Date of Admission: 11/22/24 HPI Narrative KARL CABA, is a 79 F who presents WITH LEFT BREAST CANCER. Current Encounter (DATE OF SURGERY H&P UPDATE): I saw and examined the patient this morning in pre-operative holding. We discussed risks and benefits of today's surgery and they would like to proceed. NO CHANGE in health history since last seen and evaluated. Ready to proceed with surgery. [facility] Medical History Loss of hearing Wears glasses Post-menopausal Anxiety Alcohol use Headache History of diverticulosis Shortness of breath on exertion Non-smoker History of stress test Breast cancer Mass of left breast High cholesterol HTN (hypertension) Home Medications ?Medication ?Instructions ?Recorded ?Last Taken ?Type aspirin 81 mg tablet 324 mg PO QDAY 10/27/24 11/21/24 12:00 History lisinopril 40 mg tablet 40 mg PO QDAY 10/27/24 11/20/24 History pravastatin 10 mg tablet 10 mg PO QDAY 10/27/24 11/20/24 History Allergy/AdvReac Type Severity Reaction Status Date / Time adhesive Allergy Rash Verified 11/22/24 11:55 Family History Daughter Breast cancer Father Heart disease Surgical History Hx of colonoscopy Hx of tonsillectomy S/P hysterectomy S/P bilateral breast implants Social History Smoking Status: Never smoker alcohol intake: current substance use type: does not use additional social history: pt denies blood clotting issues denies vaping, denies edibles, denies marijuana use. Vital Signs Vital Signs Vital Signs: 11/22/24 11:57 11/22/24 11:57 11/22/24 12:22 Temperature 97.6 F L Temperature Source Temporal Pulse Rate 73 Respiratory Rate 18 Respiratory Pattern Normal Blood Pressure 190/64 H Blood Pressure Mean 106 Blood Pressure Source Monitor Blood Pressure Position Sitting Blood Pressure Location Right Arm Pulse Ox 97 Oxygen Delivery Method Room Air Room Air Weight Weight: 149 lb 14.629 oz Body Mass Index (BMI) 28.3 Physical Exam Narrative Left breast mass behind the nipple. Bleeding. Assessment & Plan Assessment/Plan (1) Breast implant capsular contracture: (2) Ruptured left breast implant: (3) Breast cancer: QUALIFIERS: Breast location: central portion of breast Estrogen receptor status: positive Patient sex: female Laterality: left Qualified Code(s): C50.112 - Malignant neoplasm of central portion of left female breast; Z17.0 - Estrogen receptor positive status [ER+] PLAN: Plan INTERVAL H&P PLAN, DATE OF SURGERY: We will proceed with surgery today. I talked to the patient extensively about the risks of surgery, including bleeding, infection, damage to surrounding structures, poor scaring, surgical site dehiscence and wound formation, need for wound care, need for repeat operations, failure to obtain the desired result, DVT/PE, and the risks of anesthesia including , including stroke (from low blood pressure/ischemia or clot). The benefits and alternatives of this surgery were also discussed. All of their questions were answered, and they agreed to proceed with surgery. Discussed plan for left breast capsulectomy and implant removal in conjunction with left mastectomy from general surgery. Patient and family happy with the plan.
--- NOTE | 2024-11-22 13:00 | BREAST_PTH ---
PATIENT: KARL CABA LOC: [facility]3 U#:[id number] AGE/SX: 79/F ROOM: [facility] RE11/22/[address]: Dr. Jas Palmer MD : 1945 BED: 1 DIS: 11/23/2024 SPEC #: [id number] RECD: 11/22/24 13:42 STATUS: MATT BARROW #: [id number] LLUVIA: 11/22/24 13:[address]: Jas Palmer DEPT: SURGICAL PATHOLOGY RECD BY: Randy Su ENTERED: 11/22/24 14:32 SP TYPE: BREAST OTHR DR: MD Dr. Kyle Alva MD Tissues: A - Breast, NOS B - Left breast, NOS Procedures: Frozen Section (charge) Immunohistochemical Stains Surgery Specimen Level IV Surgery Specimen Level V IHC Stain ADDITIONAL HEADER OPERATION: Left breast mastectomy with implant and capsulectomy removal PRE-OP DIAGNOSIS: Breast cancer TISSUE SUBMITTED: A- Capsulectomy and implant rule out ALCL, CD-30, ALK, B- Left breast * long stitch- lateral, short stitch- superior* Ischemic Time: Unknown Fixation Time: 30 hours, 30 minutes FROZEN SECTION DIAGNOSIS A. Capsulectomy and implant, removal: Inflammation and foreign material. Negative for evidence of lymphoma in this sample (touch prep x2). No frozen section performed. MS/mr 11/22/2024 MICROSCOPIC DIAGNOSIS A. Breast implant, capsule, rule out ALCL, CD30, ALK, capsulectomy: - Capsule of implant, ruptured. - Fibrous tissue with foreign body reaction, peripheral calcification. - Focal benign adipose tissue. Note: No evidence of lymphoma observed. B. 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 - Grade 2 (tubule=3, nuclear=2, mitosis=2) - 7.8 cm with involvement of the skin (pT4b,NX). - Extensive lymphovascular invasion identified. - ER: positive (100%, intermediate to strong). - VA: positive (100%, intermediate to strong). - UXE2NXH: negative (1+). - Ki67q: 50% SYNOPTIC REPORT FOR INVASIVE BREAST CARCINOMA Specimen (P=partial, M=mastectomy):?M Laterality (R=right, L=left):?L Focality (U=unifocal, M=multifocal): U Tumor size (cm):?7.8 x 3.9 x 3.6 cm Histologic type: invasive?ductal with focal mucinous features Histologic grade:?2 ??? Tubule score (1-3):?3 ??? Nuclear score (1-3):?2 ??? Mitotic score (1-3):?2 Skin, nipple epidermis, skeletal muscle (I=involved, N=negative, NA=not applicable):?I Lymphovascular invasion (E=extensive, F=focal, N=not identified):?E Margins of main specimen (P=positive, N=negative):?P Distance to closest margin of main specimen (mm):?positive Designation of closest margin of main specimen:?superior Designation of other margins of main specimen </=1 mm:?posterior Re-resection margin status (P=positive, N=negative, NA=not applicable):?NA ? DCIS (P=present, N=not identified):?N ? Regional lymph nodes: NA ?? Total number of lymph nodes:?0 ?? Number of sentinel lymph nodes:?NA ? Estrogen receptor:?positive (100%, intermediate to strong) Progesterone receptor:?positive (100%, intermediate to strong) HER2 IHC:?negative (1+) HER2 FISH:?NA Ki67q: 50% Specimen in which ER/VA/HER2 performed:?[id number] B pTNM:?pT4b. pNX Additional findings:?Focal changes of fibrocystic mastopathy including apocrine metaplasia and UDH (usual ductal hyperplasia). Focal foreign body reaction secondary to implant rupture. IHC performed: Ecadherin SANDY-3 CK7 CK5/6 p40 Ki67q (manual immunohistochemical method) ER VA HER2 Comment:? The above synoptic report complies, in slightly modified form, with the guidelines of the [employer] [place] and the Association of Directors of Anatomic and Surgical Pathology for the reporting of cancer specimens. MICROSCOPIC DESCRIPTION Slides are reviewed. All matched controls reacted appropriately. These tests were developed and their performance characteristics determined by [facility]. They may not have been cleared or approved by the U.S. Food and Drug Administration. The FDA has determined that such clearance or approval is not necessary.? The above immunohistochemical/dualISH?markers are reviewed by the Pathologist. GROSS DESCRIPTION A. Received fresh and subsequently placed in formalin labeled with the patient's name and date of . Designated as capsulectomy and implant rule out ALCL, CD30, ALK is a 118.5 g, 10.8 x 6.7 x 4.5 cm focally disrupted capsulectomy specimen with a partially exposed, ruptured implant expelling clear, tenacious and gelatinous material (suspicious for silicone). The outside surfaces of the capsule are shaggy and cauterized with a 4.1 x 2.9 x 1.8 cm lobulated nodule with cowart to fleshy, focally fibrotic cut surfaces. Touch preparations of the nodule are made. A portion is placed in RPMI for potential future ancillary studies. Opening of the capsule reveals a smooth, deflated implant, devoid of identifiable inscriptions. The intimal surface of the capsule is significant for marked calcification. Additional nodules are not grossly appreciated. Bandage Wrapping Machine Operator sections are submitted in 4 cassettes following decalcification, as follows: A1: NoduleA2: Nodule with underlying calcificationsA3-A4: Capsule with calcifications B. Received labeled with the patient's name and date of . Designated as left breast long stitch lateral short stitch superior is a 142.6 g mastectomy measuring 15.3 x 6.3 x 3.8 cm (ML/SI/AP). The specimen is surfaced by a 14.9 x 4.6 cm cowart, diffusely nodular skin ellipse. The skin has striae. There is a central irregular, ulcerated, fibrotic and fungating nipple and areola, 1.9 x 1.8 cm and 3.9 cm, respectively. An axillary tail is not present. Muscle is not present on the posterior aspect. There is a 1.4 x 0.6 cm previously incised, possible lymph node on the posterior aspect. There is a long stitch designated as lateral and a short stitch designated as superior. The specimen is inked as follows: Superior: BlueInferior: Green Posterior: BlackPossible lymph node: Red The specimen is serially sectioned from medial to lateral into 15 levels revealing a 7.8 x 3.9 x 3.6 cm (ML/AP/SI) cowart-white, lobulated and fibrotic subareolar mass with focal, hemorrhagic cystic areas, possible necrosis and irregular borders; the mass grossly involves the upper inner, lower inner and upper outer quadrants, spanning levels #1-#10. A biopsy clip is present in level #8. The mass is located the following distances from:Superior: <0.1 cmInferior: 0.9 cm (level #2)Posterior: <0.1 cm (level #3)Skin: Grossly involvedNipple: Grossly involved There are multiple irregular, cowart-white and fibrotic, separate to contiguous nodules involving the skin diffusely; they range from 0.5 x 0.4 x 0.4 cm to 2.8 x 0.8 x 0.8 cm The remaining cut surfaces are fibrofatty (95% fatty, 5% fibrotic) with focal calcifications of levels #4-#5. Bandage Wrapping Machine Operator sections are submitted as follows: B1: Medial skin tipB2: Mass to superior/posterior, levels #2-#3B3: Calcifications, levels #4-#5B4: Skin nodulesB5: Mass with biopsy site to superior/posterior, level #8 B6: Possible lymph node on posterior aspect, inked red, bisected (no lymph node per microscopic exam)B7: Mass to nipple and areola with possible necrosisB8: Mass to areola, inferior, level #8B9: Mass to uninvolved parenchyma, level #10B10: Fibrotic posterior margin, 1.5 cm inferior to mass, level #10B11: Uninvolved parenchyma, outer quadrant Cold ischemic time: UnknownFormalin fixation time: 30 hours, 30 minutesFormalin fixation time is an estimate based on the standard collection time on the requisition as no cold ischemic time was provided. NM 11/23/2024 CPT:[id number]
--- NOTE | 2024-11-22 13:55 | OP.PCM_ITS ---
Operative Report (Standard) Operative Information Date of Procedure: 11/22/24 Pre-Operative Diagnosis: Bleeding left breast cancer with metastasis Post-Operative Diagnosis: Same Surgery/Procedure Performed: Palliative left mastectomy with removal of implant nutrition services worker: Yes Continuous Drier Operator: Сергей Sykes Tasks completed by first officer: Opening, Closing and Retracting Type of Anesthesia: General/Regional RN Documented Start/Stop Times: Operation Date: 11/22/24 13:00 Case Time Into Pre-Op 11/22/24 11:22 Out of Pre-Op 11/22/24 12:35 Anesthesia Start 11/22/24 12:37 Into Room 11/22/24 12:37 Procedure Start 11/22/24 12:57 Procedure Start Time: 12:57 Procedure Stop Time: 13:58 Select all DRAINS/GRAFTS/IMPLANTS that apply: Drains Drain details: ALICIA to bulb suction Estimated Blood Loss: 20 Specimen collected: Yes Description of specimen(s) removed: Left breast and left implant Description of surgery: Patient was brought back to the operating room and general anesthesia was induced. An elliptical incision was marked around the breast. The superior portion was incised using a scalpel and deepened to the capsule of the implant. Dr. Mathew removed the implant and the capsule. Please see his operative note for this portion of the procedure. After his portion was done the inferior portion of the incision was incised with a scalpel and hemostasis was obtained using electrocautery. The specimen was sent for pathology and marked. The cavity was irrigated and suctioned dry and all of the silicone was removed. Hemostasis was obtained using electrocautery. Next a 19 [place] round drain was placed through the left lateral chest wall and into the cavity. It was sutured to the skin using 3-0 nylon suture. Next local incision was instilled and the incision was closed with interrupted 3-0 Vicryl sutures and a running 4-0 Monocryl suture. Dermabond was applied. Patient was awoken and taken to PACU in stable condition. Surgical Findings: Left breast cancer Complications Complications: No Admit VTE Documentation VTE Mechan Device Prophylaxis: SCD's
--- NOTE | 2024-11-22 14:04 | PCM.POST.ANE ---
Anesthesia: Postop Eval I Current Vital Signs Temperature: 97.7 F Pulse Rate: 86 Blood Pressure: 170/74 Respiratory Rate: 16 Pulse Ox: 92 Oxygen Delivery Method: Room Air Assessment Airway patent: Yes Spontaneous unlabored respirations: Yes Mental status: Awake and Calm nausea: No Vomiting: No Anesthesia Complication: No Fluid Hydration Crystalloid volume administer (ml): 900 Total IV fluid infused: 900 Progress Note Anesthesia document: Postop Eval 1 completed: Yes
--- NOTE | 2024-11-22 14:58 | OP.PCM_ITS ---
Operative Report (Standard) Operative Information Date of Procedure: 11/22/24 Pre-Operative Diagnosis: Ruptured left implant in the setting of mastectomy for left retroareolar breast cancer Post-Operative Diagnosis: Same Surgery/Procedure Performed: 1) Complete capsulectomy and removal of left breast implant (ruptured silicone, with extracapsular silicone) (CPT:34071, [id number]) economics instructor: Yes Tax Manager Public: Jas Palmer Tasks completed by licensed occupational therapy assistant: Retracting Type of Anesthesia: General RN Documented Start/Stop Times: Operation Date: 11/22/24 13:00 Case Time Into Pre-Op 11/22/24 11:22 Out of Pre-Op 11/22/24 12:35 Anesthesia Start 11/22/24 12:37 Into Room 11/22/24 12:37 Procedure Start 11/22/24 12:57 Procedure End 11/22/24 13:47 Anesthesia End 11/22/24 13:55 Out of Room 11/22/24 13:55 Into Recovery 11/22/24 14:01 Procedure Start Time: 12:57 Procedure Stop Time: 13:47 Select all DRAINS/GRAFTS/IMPLANTS that apply: None Estimated Blood Loss: 50 cc Specimen collected: Yes Description of specimen(s) removed: Left breast implant (ruptured) with capsule (complete) Description of surgery: Indications: Chiqui Loaiza is an 79-year-old female with a left retroareolar breast cancer that has been bleeding. She presents today for removal of the breast tumor and left breast mastectomy with general surgery. She has a ruptured implant on the left side, and they asked for assistance with removing the capsule and the implant. I met the patient in the clinic and she was in agreement with removal of the implant with the capsule. We discussed the risk benefits and alternatives and she elected to proceed. Procedure details: Patient was correctly identified in preoperative holding and taken back to the operating room where she was administered general anesthesia and prepped and draped in sterile fashion. Timeout was performed. A 10 blade scalpel was used to incise a transverse incision superior to the nipple over the central portion of the breast mound and Bovie electrocautery was used to dissect down carefully to the breast capsule. The capsule was dissected and it was identified to be partially under the muscle (inferior pole had no muscle) care was then taken to use Bovie electrocautery to completely excise the capsule dissecting around the capsule as it went into a submuscular plane and dissecting it posteriorly off of the chest wall with Bovie electrocautery. There was extracapsular silicone and foreign body reaction to the extracellular silicone which was excised along with the breast capsule. The silicone was clearly leaking and had lost most of its shape. All extracapsular silicone was removed as well. There were no fluid collections around the capsule/or within the capsule. The left breast cavity was then irrigated with copious amounts of normal saline to remove any further silicone debris. Hemostasis obtained with Bovie electrocautery. Dr. Palmer then performed his portion of the case (breast tissue removal). Please see a separate operative note for the remainder of the case. Surgical Findings: Ruptured left breast silicone implant (partially submuscular). Complete capsulectomy was performed and all contents within the capsule were excised and removed. Complications Complications: No Admit VTE Documentation VTE Mechan Device Prophylaxis: SCD's
[2024-11-22] MEDS: 0.9% Normal Saline (1000mL) 1,000 ML 100 ML IV (15:20)
--- NOTE | 2024-11-22 15:22 | POSTOPAN2_ITS ---
Anesthesia Postop Eval I Sum Postop Eval Completion status Anesthesia document: Postop Eval 1 completed: Yes Anesthesia Postop Eval I Summary Anesthesia Postop Eval I Summary: Anesthesia Postop Eval I: Assessment Summary Airway patent Yes 11/22/24 14:05 [email or web address] Spontaneous unlabored Yes 11/22/24 14:05 [email or web address] [email or web address].JDEF respirations Mental status Awake,Calm 11/22/24 14:05 [email or web address] [email or web address].JDEF nausea No 11/22/24 14:05 PANTOGRAPH SETTER.JDEF Vomiting No 11/22/24 14:05 PANTOGRAPH SETTER.[email or web address] Anesthesia Postop Eval I: Fluid Summary Crystalloid volume administer 900 11/22/24 14:05 [email or web address] [email or web address].JDEF (ml) Colloids volume administered ( ml) Blood Product volume administered (ml) Total IV fluid infused 900 11/22/24 14:05 [email or web address] [email or web address].JDEF Anesthesia Postop Eval I: Summary Notes Anesthesia Complication No 11/22/24 14:05 [email or web address] [email or web address] Anesthesia Complication Comment: Post-operative progress note Anesthesia: Postop Eval II Evaluation Mental status: Awake and Calm Pain Level: 1 nausea: No Vomiting: No Complications Anesthesia Complication: No
--- NOTE | 2024-11-22 15:22 | PCM.POSTANE2 ---
Anesthesia Postop Eval I Sum Postop Eval Completion status Anesthesia document: Postop Eval 1 completed: Yes Anesthesia Postop Eval I Summary Anesthesia Postop Eval I Summary: Anesthesia Postop Eval I: Assessment Summary Airway patent Yes 11/22/24 14:05 [email or web address] Spontaneous unlabored Yes 11/22/24 14:05 [email or web address] [email or web address].JDEF respirations Mental status Awake,Calm 11/22/24 14:05 SPECIFICATIONS [email or web address].JDEF nausea No 11/22/24 14:05 [email or web address] [email or web address].JDEF Vomiting No 11/22/24 14:05 [email or web address] [email or web address].JDEF Anesthesia Postop Eval I: Fluid Summary Crystalloid volume administer 900 11/22/24 14:05 [email or web address] [email or web address].JDEF (ml) Colloids volume administered ( ml) Blood Product volume administered (ml) Total IV fluid infused 900 11/22/24 14:05 [email or web address] CHECKER.JDEF Anesthesia Postop Eval I: Summary Notes Anesthesia Complication No 11/22/24 14:05 [email or web address].JDEF Anesthesia Complication Comment: Post-operative progress note Anesthesia: Postop Eval II Evaluation Mental status: Awake and Calm Pain Level: 1 nausea: No Vomiting: No Complications Anesthesia Complication: No
[2024-11-23 00:24] VITALS: BP 157/59; PULSE 77; RESP 16; TEMP 37.1; O2SAT 95
[2024-11-23] MEDS: 0.9% Normal Saline (1000mL) 1,000 ML 100 ML IV (02:03)
[2024-11-23 04:24] VITALS: BP 151/54; PULSE 73; RESP 16; TEMP 36.8; O2SAT 95
--- OUTSIDE RECORDS SUMMARY | 2024-11-23 04:36 | XMS RPT_ITS | CCD ---
Author Organization [facility]ini[facility] Care Team Providers Care Soyfreeze Operator Name Role Phone DIAMOND KHANNA Unavailable Unavailable DIAMOND KHANNA Unavailable Unavailable DIAMOND KHANNA Unavailable Unavailable Dr. Malvin Baker Primary Care Provider [phone] Dr. Malvin Baker Referring Provider Dr. Malvin Baker Other Provider Dr. Amanuel Braden Attending Provider Samuel ALMAGUER, Dr. England Primary Care Provider Samuel ALMAGUER, Dr. England Attending Provider [phone] Samuel ALMAGUER, Dr. England Referring Provider Estela ALMAGUER, Dr. Mark Attending Provider Estela ALMAGUER, Dr. Mark Referring Provider [phone] Quincy ALMAGUER, Dr. Wright Attending Provider Samuel, Tomás Primary Care Unavailable Jas Palmer Attending Unavailable Tomás Baker Referring Unavailable Samuel, [facility] Primary [facility] Unavailable Tomás Baker Attending Unavailable Samuel, [facility] Unavailable Tomás Baker Attending Unavailable Tomás Baker Referring Unavailable Samuel, [facility] Unavailable Jas Palmer Attending Unavailable Jas Palmer Referring Unavailable Jas Palmer Attending Unavailable Samuel, [facility] Unavailable Samuel, [facility] Unavailable Jas Palmer Attending Unavailable Tomás Baker Referring Unavailable Kyle Mathew Attending Unavailable Ranstan, [facility] Referring Unavailable Ranney, Christopher Primary Care Unavailable Allergies Allergy Classification Reported Allergen(s) Allergy Type Date of Onset Reaction(s) Facility (2 sources) Adhesive agent; Translations: [adhesive] Allergy to substance 12-09-2021 [facility] Repository Medications Current Medications Medication Drug Class(es) Dates Sig (Normalized) Sig (Original) aspirin 81 mg oral tablet (4 sources) Platelet Aggregation Inhibitor, Nonsteroidal Anti-inflammatory Drug Start: 10-27-2024 take 1 tablet by mouth once daily Aspirin 81 mg tablet Active 81 mg PO daily October 27, 2024 12:00am lisinopril 40 mg oral tablet (4 sources) Angiotensin Converting Enzyme Inhibitor Start: 10-27-2024 take 1 tablet by mouth once daily Lisinopril 40 mg tablet Active 40 mg PO daily October 27, 2024 12:00am pravastatin sodium 10 mg oral tablet (4 sources) HMG-CoA Reductase Inhibitor Start: 10-27-2024 take 1 tablet by mouth once daily Pravastatin 10 mg tablet Active 10 mg PO daily October 27, 2024 12:00am Problems Problem Classification Problem Date Documented Da te Episodic/Chronic Cancer of breast (6 sources) Malignant tumor of breast ; Translations: [Malignant neoplasm of unspecified site of unspecified female breast] Onset: 11-16-2024 11-16-2024 Chronic Disorders of lipid metabolism (5 sources) Mixed hyperlipidemia; Translations: [Hypercholesterolem ia] Onset: 08-31-2017 10-27-2024 Chronic Essential hypertension (5 sources) Hypertensive disorder; Translations: [Essential (primary) hypertension] Onset: 01-09-2024 10-27-2024 Chronic Nonmalignant breast conditions (8 sources) Breast lump; Translations: [Unspecified lump in the left breast, unspecified quadrant] Onset: 11-10-2024 10-27-2024 Episodic Other connective tissue disease (1 source) Myalgia; Translations: [Myalgia] Onset: 09-07-2017 Episodic Other gastrointestinal disorders (1 source) Change in bowel habit; Translations: [Change in bowel habit] Onset: 09-12-2024 Episodic Residual codes; unclassified (1 source) Estrogen receptor positive status [ER+]; Translations: [Estrogen receptor positive status [ER+]] Onset: 11-16-2024 Episodic Unclassified (2 sources) Malignant neoplasm of breast Unclassified (4 sources) C50.919 - Malignant neoplasm of unspecified site of unspecified female breast Results Test Name Value Interpretation Reference Range Facility Plastic Surgery Visit Report on 11-16-2024 Plastic Surgery Visit Report [facility] [address], [address] [place] [address] OFFICE VISIT Date of Service: 11/16/24 MR#: [id number] Acct: [id number] Name: CHIQUI LOAIZA Rep #: [id number] : 1945 Provider: Dr. Kyle Mathew MD Age/Sex: 79/F [place] [facility] Status: Signed with Addenda ADDENDUM by Dr. 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, estrogen receptor positive C50.112; Z17.0 Breast location: central portion of breast Estrogen receptor status: positive Patient sex: female Laterality: left (2) Ruptured left breast implant: Status: Acute (3) Breast implant capsular contracture: Status: Acute Plan 11/18/24 0758 Date Kyle Mathew MD cc: * Signed Intake Vital Signs 3 10/27/24 12:41 11/16/24 13:31 Height 5 ft 1 in 5 ft 1 in Weight: 151 lb 151 lb BMI 28.5 28.5 BP 195/78 H 149/80 H Blood Pressure Location Lt brachial Position Sitting Sitting Respiration 17 18 Pulse 67 96 Pulse Source Monitor Temp 98.1 F Temp Source Oral Pulse Oximetry (%) 96 Oxygen Delivery Method room air room air Intake Visit Reasons: IMPLANT REMOVAL Chief Complaint: discuss surgery Is patient in pain?: No Allergies adhesive Allergy (Verified 11/16/24 13:26) Rash Medications 3 ???Medication ???Instructions ???Recorded ???Confirmed ???Type aspirin 81 mg tablet 81 mg PO QDAY 10/27/24 11/16/24 Hi story lisinopril 40 mg tablet 40 mg PO QDAY 10/27/24 11/16/24 Hi story pravastatin 10 mg tablet 10 mg PO QDAY 10/27/24 11/16/24 Hi story Have you fallen in the past year?: No Nurse's Note: pt here for eval, having left masectomy by Dr. Palmer and Dr. Mathew implant removal. [facility] Medical History (Updated 11/18/24 @ 07:[address] Kyle Mathew MD) Breast cancer Mass of left breast High cholesterol HTN (hypertension) Surgical History S/P hysterectomy S/P bilateral breast implants Family History Daughter Breast cancer Father Heart disease Social History Smoking Status: Never smoker alcohol intake: current substance use type: does not use additional social history: pt denies blood clotting issues denies vaping, denies edibles, denies marijuana use. HPI IMPLANT REMOVAL Details: The patient is an 79-year-old female presenting with suspected breast cancer and associated symptoms. She reports nipple discharge and bleeding from the left breast since early August, with variable bleeding intensity. The patient has a history of breast implants placed in 1980, with the left implant suspected to be ruptured and the right showing signs of capsular contracture. She has consulted with Dr. Palmer (General Surgery) regarding the removal of the left breast as there is a mass and she has bloody nipple drainage/induration around the nipple of a couple of month's duration. She is scheduled for a mastectomy on the left side on 22 November 2024, with plans for [facility] to remove the implant and perform a skin-sparing mastectomy. The patient has declined chemotherapy and radiation due to personal experiences with family members and her age, preferring alternative treatments if necessary. Patient is not interested in any further breast reconstruction at this time. There is concern for metastatic disease. She would like a simple 1 stage procedure for the left side. We discussed options for removal of the right breast implant, and she is interested in only removing the left side at this time for the cancer procedure. ROS: - Breast: Reports nipple discharge and bleeding from the left breast since early August. - Musculoskeletal: Denies pain associated with the breast implants. - Hematologic: Denies history of blood clots. - Respiratory: Denies smoking or nicotine use. Attestation: Documentation on this patient encounter was supported using ambient scribe technology/ voice AI technology. The patient consented to recording for the purpose of documenting the encounter. Provider reviewed content of the generated note prior to signature. 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 Left implant feels ruptured. Contracture Grade 2 capsule left, grade 3 capsule right Both appear to be subglandular implants Note: measurements are in centimeter (more content not included)... Normal [facility] Surgery Visit Reporton 11-16 Surgery Visit Report [facility] [address] [place] [address] OFFICE VISIT Date of Service: 11/16/24 MR#: [id number] Acct: [id number] Name: CHIQUI LOAIZA Rep #: [id number] : 1945 Provider: Dr. Jas deluca MD Age/Sex: 79/F Location: [facility] Status: Signed Intake Vital Signs 10/27/24 12:41 11/16/24 08:00 Height 5 ft 1 in Weight: 151 lb BMI 28.5 BP 195/78 H 193/76 H Blood Pressure Location Rt brachial Position Sitting Sitting Respiration 17 17 Pulse 67 74 Pulse Source Monitor Monitor Pulse Oximetry (%) 97 Oxygen Delivery Method room air room air Intake Visit Reasons: Discuss possible surgery Chief Complaint: discuss surgery Is patient in pain?: No Allergies adhesive Allergy (Verified 11/16/24 08:02) Rash Medications ???Medication ???Instructions ???Recorded ???Confirmed ???Type aspirin 81 mg tablet 81 mg PO QDAY 10/27/24 11/16/24 Hi story lisinopril 40 mg tablet 40 mg PO QDAY 10/27/24 11/16/24 Hi story pravastatin 10 mg tablet 10 mg PO QDAY 10/27/24 11/16/24 Hi story Have you fallen in the past year?: No PFSH Medical History Breast cancer Mass of left breast High cholesterol HTN (hypertension) Surgical History (Updated 10/27/24 @ 12:31 by Yvette De Jesus) S/P hysterectomy S/P bilateral breast implants Family History (Updated 10/27/24 @ 12:32 by Yvette De Jesus) Daughter Breast cancer Father Heart disease Social History (Updated 10/27/24 @ 12:32 by Yvette De Jesus) Smoking Status: Never smoker alcohol intake: current HPI HPI HPI: Patient is an 79-year-old female with left breast cancer. She is here because the mass continues to bleed through her nipple. She is having blood loss daily. ROS General General: No weight change, appetite, fatigue, colon cancer, breast cancer or weakness HEENT HEENT: No difficulty swallowing, eye injury, eye surgery, swollen glands or hoarseness Endo Endocrine: No thyroid disease, diabetes mellitus, thyroid cancer, Hair loss, heat intolerance or cold intolerance Skin Skin: No rash or changing moles Breast Breast: No left breast lump, right breast lump, nipple discharge, breast pain, abnormal mammogram, abnormal US or breast enlargement Musc Musculoskeletal: No back problems, arthritis, rheumatoid arthritis, gout or joint pain Cardio Cardiovascular: No murmur, pacemaker, heart disease, atrial fibrillation, high blood pressure, heart attack, heart stent, palpitations, shortness of breath with exertion or chest pain Psych Psychiatric: No depression, anxiety or hearing voices Resp Respiratory: No shortness of breath, No sleep apnea, Yes cough, No COPD, No asthma, No emphysema and No wheezing Gastro Gastrointestinal: No abdominal pain, No nausea or vomiting, Yes diarrhea, Yes constipation, No blood in stool, No acid reflux, No hemorrhoids, No ulcers, No gallbladder problem and No black,tarry stools Rico Hematologic: No blood thinners, No blood disorders, Yes bleeding, No anemia and No blood clots Neuro Neurologic: No system reviewed and no additional complaints, except as documented, No as per HPI, No abnormal gait, No abnormal hearing, No abnormal movements, No abnormal speech, No behavioral changes, No burning sensations, No confusion, No convulsions, No disequilibrium, No dizziness, No localized weakness, No frequent falls, No headache(s), No lack of coordination, No loss of vision, No memory loss, Yes numbness, No other visual disturbances, No radicular pain, No restless legs, No sensory deficit, No syncope, Yes tingling, No tremor(s), No weakness and No other Exam Const General: cooperative Orientation: alert and oriented x3 HENMT Head: normal to inspection Neck Neck: normal visual inspection and full ROM Chest Chest palpation inspection: normal inspection of the chest Resp Effort Inspection: normal respiratory effort Auscultation: clear to auscultation bilaterally Cardio Rate: regular rate Rhythm: regular rhythm GI Inspection: non-distended Palpation: soft and nontender Skin General: no rashes or lesions noted Neuro General: patient alert and patient oriented x3 Extrem General: full ROM Psych Appearance: grossly normal Mental Status: mental status grossly normal Assessment and Plan Assessment and Plan (1) Breast cancer: Status: Acute Qualifiers: Breast location: central portion of breast Estrogen receptor status: positive Patient sex: female Laterality: left Qualified Code(s): C50.112 - Malignant neoplasm of central portion of left female breast; Z17.0 - Estrogen receptor positive status [ER+] Plan: The patient has breast cancer on the left. She has decided she does not want chemotherap (more content not included)... Normal [facility] FISH, HER2, BREAST CANCER, A CCESSIONINGon 11-08-2024 AP BLOCK/SLIDE ID Normal [facility] Comment on above: Performed By: #### L [id number] #### [facility] (DEFAULT) [address] [place] [address] AP SLIDE SCANNED Normal [facility] Comment on above: Performed By: #### L [id number] #### [facility] (DEFAULT) [address] [address] APCP HISTOLOGY COMMENTS Normal [facility] Comment on above: Performed By: #### L [id number] #### [facility] (DEFAULT) [address] [address] HER2 FISH, BREAST CANCER, SI GN-OUTon 11-08-2024 Block/ A1 /S25-2 497 A1 (10/27/2024)/ Normal [facility] Comment on above: Performed By: #### L [id number] #### [facility] (DEFAULT) [address] [place] [address] Block/ A1 /S25-2 497 B1 (10/27/2024)/ Normal [facility] Comment on above: Performed By: #### L [id number] #### [facility] (DEFAULT) [address] [place] [address] HER2 copy number/cell 3.9 Normal [facility] Comment on above: Performed By: #### L [id number] #### [facility] (DEFAULT) [address] [place] [address] HER2 Score Negative Normal [facility] Comment on above: Performed By: #### L [id number] #### [facility] (DEFAULT) [address] [place] [address] HER2/CEP17 Ratio 1.3 Normal [facility] Comment on above: Performed By: #### L [id number] #### [facility] (DEFAULT) [address] [place] [address] HER2/CEP17 Ratio 1.2 Normal [facility] Comment on above: Performed By: #### L [id number] #### [facility] (DEFAULT) [address] [place] [address] Interpretation Tumor shows a HER2/C EP17 ratio less than 2.0 and HER2 copy number less than 4.0 by FISH. Given the negative or 2+ HER2 IHC result, the HER2 status is negative (Group 5N). Internal and external controls show expected signal pattern. [facility] Comment on above: Performed By: #### L [id number] #### [facility] (DEFAULT) [address] [place] [address] Method/Limitations: [facility] Comment on above: Result Comment: Jaswant vitale cold ischemic time: 1 minutes Total fixation: 7 hours Methodology/Interpretation: After review by a molecular pathologist to select area, formalin-fixed tissue sections are evaluated by fluorescence in situ hybridization (FISH). Assay is performed using the PathVysion HER-2 DNA Probe Kit ([employer]), with adequate staining for positive and negative external controls noted in this run. 100 tumor cells are scored by a technologist using computer assistance ([employer]) to enumerate SpectrumOrange (O) HER2 and SpectrumGreen (G) centromeric chromosome 17 (CEP17) signals. Mean HER2/CEP17 ratio is calculated by [employer] from all selected cells, with results confirmed by the interpreting pathologist by fluorescence microscopy. Cells with no signals or signals of only one color (i.e. 1G and 1O) are not scored. With 2+ IHC staining, HER2 immunostain is reviewed to select areas for FISH analysis. For cases with indeterminate FISH scoring after the first 100 cells, an additional 20 cells are counted to derive the final HER2 score. ?Second count?is done by an additional observer who is blinded to the previous results and may select an alternate area for scoring. Final score is determined by combination of IHC and FISH result per 2018 ASCO/CAP Guidelines (Rebecca et al. J Clin Oncol 2018;36:2105). Adequacy of biopsy and tissue fixation parameters may affect the result of IHC or less commonly FISH staining. Delays in fixation and/or over- or under-fixation may affect probe binding and signal enumeration. This test was developed and its performance determined by the [facility] of the [facility] under the medical direction of Walker Maradiaga MD, PhD. It has not been cleared or approved by the U.S. Food and Drug Administrations. Since FDA (U.S. Food and Drug Administration) approval is not required for clinical use of this test, this laboratory has established and validated the test's accuracy and precision, pursuant to the requirement of CLIA '88. Performed By: #### L [id number] #### [facility] (COUNTS INCLUDE 234 BEDS AT THE [facility]) [address] [place] [address] Result Comment: Meth odology/Interpretation: After review by a molecular pathologist to select area, formalin-fixed tissue sections are evaluated by fluorescence in situ hybridization (FISH). Assay is performed using the PathVysion HER-2 DNA Probe Kit ([employer]Pool), with adequate staining for positive and negative external controls noted in this run. 100 tumor cells are scored by a technologist using computer assistance ([employer]) to enumerate SpectrumOrange (O) HER2 and SpectrumGreen (G) centromeric chromosome 17 (CEP17) signals. Mean HER2/CEP17 ratio is calculated by [employer] from all selected cells, with results confirmed by the interpreting pathologist by fluorescence microscopy. Cells with no signals or signals of only one color (i.e. 1G and 1O) are not scored. With 2+ IHC staining, HER2 immunostain is reviewed to select areas for FISH analysis. For cases with indeterminate FISH scoring after the first 100 cells, an additional 20 cells are counted to derive the final HER2 score. ?Second count?is done by an additional observer who is blinded to the previous results and may select an alternate area for scoring. Final score is determined by combination of IHC and FISH result per 2018 ASCO/CAP Guidelines (Rebecca et al. J Clin Oncol 2018;36:2105). Adequacy of biopsy and tissue fixation parameters may affect the result of IHC or less commonly FISH staining. Delays in fixation and/or over- or under-fixation may affect probe binding and signal enumeration. This test was developed and its performance determined by the [facility] of the [facility] under the medical direction of aWlker Maradiaga MD, PhD. It has not been cleared or approved by the U.S. Food and Drug Administrations. Since FDA (U.S. Food and Drug Administration) approval is not required for clinical use of this test, this laboratory has established and validated the test's accuracy and precision, pursuant to the requirement of CLIA '88. Reviewed By GRAHAM Barahona, PhD Normal [facility] Comment on above: Performed By: #### L [id number] #### [facility] (DEFAULT) [address] [place] [address] Tissue Source Left breast mass, co re biopsy Normal [facility] Comment on above: Performed By: #### L [id number] #### [facility] (DEFAULT) [address] [address] Tissue Source Lymph Node, Left Axi lla, Core Biopsy Normal [facility] Comment on above: Performed By: #### L [id number] #### [facility] (DEFAULT) [address] [place] [address] SURG PATH REQUESTon 11-09-[address] [facility] Comment on above: Result Comment: Surg ical Pathology Report Case: [id number] Authorizing Provider: Laurence Main MD Collected: 11/08/2024 02:35 PM Ordering Location[facility] Received: 11/08/2024 02:36 PM [place] Pathologist: Luis A Webber MD, PhD Specimen: SURG PATH, Outside Unstained Slides; HER2, FISH Testing; Left Breast Mass, Core Biopsy; Lymph Node, Left Axilla, Core Biopsy Performed By: #### S URGP #### [facility] (DEFAULT) [address] [place] [address] Clinical History Request received fro joe Main MD of [facility] for HER2, FISH testing on slides received from [facility]. Pre-Op Diagnosis: left breast mass. [facility] Comment on above: Performed By: #### S URGP #### [facility] (DEFAULT) [address] [place] [place] [id number] Gross Description [facility] Comment on above: Result Comment: The following material(s) are received from [facility], [address] [place] [address], with an identifying surgical pathology report: 2 H&E slide(s), 2 non-H&E slide(s) and 4 unstained slides marked A1 x2, B1 x2, labeled [id number]. [facility] Histology Laboratory performed specialty testing on the unstained slides that were received from the submitting facility HER2, FISH x2. Outside materials are returned in sixty (60) days under separate cover with our number recorded on them. Grosser for this case was: Linda Werner Performed By: #### S URGP #### [facility] (DEFAULT) [address] [address] Microscopic Description Tissue was asses sed by a molecular pathologist to select areas for analysis and to correlate immunostaining with histology. No morphologic assessment was requested. [facility] Comment on above: Performed By: #### S URGP #### [facility] (DEFAULT) [address] [address] Pathologic Diagnosis Normal [facility] Comment on above: Result Comment: Bo[place] Outside Slides: [id number] (10/27/2024) A. Left Breast Mass, Core Biopsy: HER2 FISH: Negative (see FISH results for details) B. Lymph Node, Left Axilla, Core Biopsy: HER2 FISH: Negative (see FISH results for details) at 1518 EDT Performed By: #### S URGP #### [facility] (DEFAULT) [address] [place] [address] Professional Interpretation Performed at: [facility] Comment on above: Result Comment: [facility] For Immediate Release to [facility]? Yes [address] [place] [address] Performed By: #### S URGP #### [facility] (DEFAULT) [address] [place] [address] Immunohistochemical Stainson 10-27-2024 Immunohistochemical Stains Patient Age/Sex Location Account Attending Physician CHIQUI LOAIZA 79/F [facility] [id number] Dr. Jas Palmer MD Specimen: [id number] Received: 10/27/240353 Status: MATT Riggs Num: [id number] Spec Type: BREAST BX Subm Dr: Dr. Jas Palmer MD HEADER OPERATION: Core needle biopsy of left breast mass and lymph node PRE-OP DIAGNOSIS: Left breast mass TISSUE SUBMITTED: A- Left breast mass biopsy, B- Lymph node, left axilla biopsy Ischemic Time: 1 minute Fixation Time: 7 hours MICROSCOPIC DIAGNOSIS A. Left breast mass, core biopsy: * Invasive ductal carcinoma NST, Grade 2 (tubule 3, nuclear 2, mitosis 1) at least 0.8 cm. * Estrogen Receptor: positive (100%, strong intensity) * Progesterone Receptor: positive (100%, strong intensity) * [id number]: pending, to be reported in an addendum. * See Comment. B. 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 * Note: Although the tumor is compatible with the breast primary observed in part A, there are mild histologic differences; therefore IHC was performed - see Comment. * Estrogen Receptor: positive (100%, strong intensity) * Progesterone Receptor: positive (80%, strong intensity) * [id number]: pending, to be reported in an addendum. COMMENT A, B) Additional IHCs were performed on both specimens A and B, and both tissues reacted similarly: Positive: E-cadherin, SANDY-3, CK7, Synaptophysin. Negative: CK5/6, p40, Mammaglobin, CK20, Chromogranin (part B shows weak positivity for Chromogranin). MICROSCOPIC DESCRIPTION Slides are reviewed. All matched controls reacted appropriately. These tests were developed and their performance characteristics determined by [facility]. They may not have been cleared or approved by the U.S. Food and Drug Administration. The FDA has determined that such clearance or approval is not necessary.??? The above immunohistochemical/dual OZIEL???markers are ordered and reviewed by the Pathologist. Patient Age/Sex Location Account Attending Physician CHIQUI LOAIZA 79/F LABSPEC [id number] Dr. Jas Palmer MD GROSS DESCRIPTION Received in 2 formalin containers labeled patient's name and date of .??? Designated as: A.??? #1 left breast tissue are 2 cowart soft tissue cores, 1.2 cm and 2.2 cm in length by 0.1 cm in diameter.??? Entirely submitted in 1 cassette. Cold ischemic time: 1 minuteFormalin fixation time: 7 hours B.??? #2 left axillary lymph node biopsy are 2 cowart soft tissue fragments, 0.9 cm and a 1.1 cm in length by 0.1 cm in diameter.??? Entirely submitted in 1 cassette. AR 10/27/2024 CPT:85376g7, 71710p1, 80193j06,19588f0 ADDENDUM Addendum 3 Entered: 11/15/24 This addendum is added to incorporate an outside pathology consultation report. The case was examined at [facility] (#[id number] A1 , B1) and the following diagnosis was rendered. A. Left breast mass, core biopsy: Her2 : Negative HER2 SCORE REPORT: HER2 SCORE: NEGATIVE HER2 / CEP17 RATIO: 1.3 HER2 COPY NUMBER / CELL: 3.9 B. Lymph node, left axilla, biopsy: Her2 : Negative HER2 SCORE REPORT: HER2 SCORE: NEGATIVE HER2 / CEP17 RATIO: 1.2 HER2 COPY NUMBER / CELL: 3.9 Please see complete above mentioned consultation report in EMR Patient Age/Sex Location Account Attending Physician CHIQUI LOAIZA 79/F LABSPEC [id number] Dr. Jas Palmer MD ADDENDUM (Continued) Addendum Signed (signature on file) Dr. Laurence Main MD 11/16/24 1538 Addendum 2 Entered: 11/07/24-2867 This addendum is to report the MPN1ESL results: A. GLW0QZO: equivocal (2+) B. IFX4CUY: equivocal (2+) XHH2UFLV is (more content not included)... Normal [facility] Comment on above: Performed By: #### [facility] ####[facility] [address] [place], [address] Surgery Visit Reporton 10-27 Surgery Visit Report [facility] [address] [place], [place] [address] OFFICE VISIT Date of Service: 10/27/24 MR#: [id number] Acct: [id number] Name: CHIQUI LOAIZA Rep #: [id number] : 1945 Provider: Dr. Jas deluca MD Age/Sex: 79/F Location: [facility] Status: Signed Intake Vital Signs 10/27/24 12:41 Height 5 ft 1 in Weight: 151 lb BMI 28.5 BP 195/78 H Position Sitting Respiration 17 Pulse 67 Pulse Source Monitor Oxygen Delivery Method room air Intake Visit Reasons: BLOODY BREAST MASS Chief Complaint: bloody breast mass Is patient in pain?: Yes Allergies adhesive Allergy (Verified 10/27/24 12:43) Rash Medications ???Medication ???Instructions ???Recorded ???Confirmed ???Type aspirin 81 mg tablet 81 mg PO QDAY 10/27/24 10/27/24 Hi story lisinopril 40 mg tablet 40 mg PO QDAY 10/27/24 10/27/24 Hi story pravastatin 10 mg tablet 10 mg PO QDAY 10/27/24 10/27/24 Hi story Have you fallen in the past year?: No PFSH Medical History (Updated 10/27/24 @ 13:[address] Jas Palmer MD) Mass of left breast High cholesterol HTN (hypertension) Surgical History (Updated 10/27/24 @ 12:31 by Yvette De Jesus) S/P hysterectomy S/P bilateral breast implants Family History (Updated 10/27/24 @ 12:32 by Yvette De Jesus) Daughter Breast cancer Father Heart disease Social History (Updated 10/27/24 @ 12:32 by Yvette De Jesus) Smoking Status: Never smoker alcohol intake: current HPI HPI HPI: Patient is an 79-year-old female here with a bleeding left breast mass. She says she has noted this is mass for about 3 to 4 months. The mass is located at the nipple and the nipple is bleeding. ROS General General: No weight change, appetite, fatigue, colon cancer, breast cancer or weakness HEENT HEENT: No difficulty swallowing, eye injury, eye surgery, swollen glands or hoarseness Endo Endocrine: No thyroid disease, diabetes mellitus, thyroid cancer, Hair loss, heat intolerance or cold intolerance Skin Skin: No rash or changing moles Breast Breast: No left breast lump, right breast lump, nipple discharge, breast pain, abnormal mammogram, abnormal US or breast enlargement Musc Musculoskeletal: No back problems, arthritis, rheumatoid arthritis, gout or joint pain Cardio Cardiovascular: No murmur, pacemaker, heart disease, atrial fibrillation, high blood pressure, heart attack, heart stent, palpitations, shortness of breath with exertion or chest pain Psych Psychiatric: No depression, anxiety or hearing voices Resp Respiratory: No shortness of breath, No sleep apnea, Yes cough, No COPD, No asthma, No emphysema and No wheezing Gastro Gastrointestinal: No abdominal pain, No nausea or vomiting, Yes diarrhea, Yes constipation, No blood in stool, No acid reflux, No hemorrhoids, No ulcers, No gallbladder problem and No black,tarry stools Rico Hematologic: No blood thinners, No blood disorders, Yes bleeding, No anemia and No blood clots Neuro Neurologic: No system reviewed and no additional complaints, except as documented, No as per HPI, No abnormal gait, No abnormal hearing, No abnormal movements, No abnormal speech, No behavioral changes, No burning sensations, No confusion, No convulsions, No disequilibrium, No dizziness, No localized weakness, No frequent falls, No headache(s), No lack of coordination, No loss of vision, No memory loss, Yes numbness, No other visual disturbances, No radicular pain, No restless legs, No sensory deficit, No syncope, Yes tingling, No tremor(s), No weakness and No other Exam Const General: cooperative Orientation: alert and oriented x3 HENMI Head: normal to inspection Neck Neck: normal visual inspection and full ROM Chest Chest palpation inspection: normal inspection of the chest Breast Palpation: Yes axillary lymphadenopathy and Yes breast mass lrb: Left Resp Effort Inspection: normal respiratory effort Auscultation: clear to auscultation bilaterally Cardio Rate: regular rate Rhythm: regular rhythm GI Inspection: non-distended Palpation: soft and nontender Skin General: no rashes or lesions noted Neuro General: patient alert and patient oriented x3 Extrem General: full ROM Psych Appearance: grossly normal Mental Status: mental status grossly normal Office Procedures Biopsy Provider Documentation The patient was consented and then the left breast was prepped and draped. An area lateral to the mass was injected with local anesthetic a small incision was made. 14-gauge biopsy needle was placed into the mass several times under ultrasound guidance and tissue was obtained. A clip was then placed into the mass. A Steri-Strip was placed over the incision. Next the left axilla was inspected with u (more content not included)... Normal [facility] OzVision Decub and/or Erecton 09-07-2024 [facility] [employer] Decub and/or Erect [facility] [address] [place] [address] Abd Inc Decub and/or Erect MR#: [id number] Acct: [id number] Name: CHIQUI LOAIZA Rep #: [id number] : 1945 F 79 From: Danny Duke MD PCP: Dr. Tomás Baker MD Status: REG CLI Study: Abd Inc Decub and/or Erect Date of Exam: 09/07 Exam# [id number] Ordering Dr: Tomás Baker PROCEDURE: ABD INC DECUB AND/OR ERECT 09/07/2024 REASON FOR EXAM: CHANGE IN BOWEL HABIT TECHNIQUE: Supine and upright view abdomen. FINDINGS: Bowel gas: Bowel gas pattern is normal. No evidence of bowel obstruction. Calcifications: No suspicious calcifications. Bones: The bones are unremarkable. Other: RAD/Abd Inc Decub and/or Erect IMPRESSION: No bowel obstruction or pneumoperitoneum. Reading Location: [id number] CC: Dr. Tomás Baker MD Consulting Sales Executive: Signed Normal [facility] Absolute lymphocyte countOrd ered By: Tomás Baker on 09-07-2024 Lymphocytes Auto (Unsp spec) [#/Vol] 2.11 10*3/uL 0.83-4.51 [facility] Absolute neutrophil countOrd ered By: Tomás Baker on 09-07-2024 Neutrophils (Bld) [#/Vol] 5.5 10*3/uL 2.0-7.7 [facility] Anion gap in Serum or Plasma Ordered By: Tomás Baker on 09-07-2024 Anion gap [Moles/Vol] 15 mmol/L 5-15 [facility] Automated lymphocyte count a s percentage of total leukocytesOrdered By: Tomás Baker on 09-07-2024 Lymphocytes/100 WBC Auto (Unsp spec) 25.1 % 19-41 [facility] BUN/creatinine ratioOrdered By: Tomás Baker on 09-07-2024 Urea nitrogen/Creatinine [Mass ratio] 16.9 mg/mg 10-20 [facility] Basophil percentageOrdered B y: Tomás Baker on 09-07-2024 Basophils/100 WBC (Bld) 0.7 % 0-1 [facility] Bilirubin, totalOrdered By: Tomás Samuel on 09-07-2024 Bilirubin [Mass/Vol] 0.68 mg/dL 0.00-1.30 [facility] CBC W/Diff, Automatedon 08-16 Absolute Lymph 2.11 X10 3/uL Normal 0.83-4.51 [facility] Comment on above: Order Comment: Order Date: 09/07/24 Order Info: 018- - CBCD Order Info: 18438-1 - SED Performed By: #### L 501.9520, L101.9900, L100.0100, L500.4050 #### [facility] [address] [place], [address] Absolute Neut 5.5 X10 3/uL Normal 2.0-7.7 [facility] Comment on above: Order Comment: Order Date: 09/07/24 Order Info: 01808-15 - CBCD Order Info: 01469-0 - SED Performed By: #### L 501.9520, L101.9900, L100.0100, L500.4050 #### [facility] [address] [place], [address] Basophils/100 WBC (Bld) 0.7 % Normal 0-1 [facility] Comment on above: Order Comment: Order Date: 09/07/24 Order Info: 01808-15 - CBCD Order Info: 36615-7 - SED Performed By: #### L 501.9520, L101.9900, L100.0100, L500.4050 #### [facility] [address] [place], [address] Eosinophils/100 WBC (Bld) 1.3 % Normal 0-5 [facility] Comment on above: Order Comment: Order Date: 09/07/24 Order Info: 01808-15 - CBCD Order Info: 18864-9 - SED Performed By: #### L 501.9520, L101.9900, L100.0100, L500.4050 #### [facility] [address] [place], [address] Erythrocyte distribution width (RBC) [Ratio] 12.6 % Normal 11.6-14.6 [facility] Comment on above: Order Comment: Order Date: 09/07/24 Order Info: 183-05 - CBCD Order Info: 08833-7 - SED Performed By: #### L 501.9520, L101.9900, L100.0100, L500.4050 #### [facility] [address] [place], [address] Hematocrit (Bld) [Volume fraction] 40.5 % Normal 37-47 [facility] Comment on above: Order Comment: Order Date: 09/07/24 Order Info: 183-05 - CBCD Order Info: 53608-1 - SED Performed By: #### L 501.9520, L101.9900, L100.0100, L500.4050 #### [facility] [address] [place], [address] Hemoglobin (Bld) [Mass/Vol] 13.0 g/dL Normal 12.0-15.0 [facility] Comment on above: Order Comment: Order Date: 09/07/24 Order Info: 183-05 - CBCD Order Info: 61828-9 - SED Performed By: #### L 501.9520, L101.9900, L100.0100, L500.4050 #### [facility] [address] [place], [address] IG% 0.200 Normal 0.0-0.9 [facility] Comment on above: Order Comment: Order Date: 09/07/24 Order Info: 183-05 - CBCD Order Info: 26974-0 - SED Result Comment: IG% - Immature Granulocytes (promyelocytes, myelocytes and metamyelocytes) > 1% indicates that a LEFT SHIFT is Present. Performed By: #### L 501.9520, L101.9900, L100.0100, L500.4050 #### [facility] [address] [place], [address] Lymphocytes/100 WBC (Bld) 25.1 % Normal 19-41 [facility] Comment on above: Order Comment: Order Date: 09/07/24 Order Info: 183-05 - CBCD Order Info: 34965-2 - SED Performed By: #### L 501.9520, L101.9900, L100.0100, L500.4050 #### [facility] [address] [place], [address] MCH (RBC) [Entitic mass] 29.5 pg Normal 27.0-32.0 [facility] Comment on above: Order Comment: Order Date: 09/07/24 Order Info: 183-05 - CBCD Order Info: 98692-7 - SED Performed By: #### L 501.9520, L101.9900, L100.0100, L500.4050 #### [facility] [address] [place], [address] MCHC (RBC) [Mass/Vol] 32.1 g/dL Normal 32-36 [facility] Comment on above: Order Comment: Order Date: 09/07/24 Order Info: 183-05 - CBCD Order Info: 50908-3 - SED Performed By: #### L 501.9520, L101.9900, L100.0100, L500.4050 #### [facility] [address] [place], [address] MCV (RBC) [Entitic vol] 92.0 fL Normal 81-99 [facility] Comment on above: Order Comment: Order Date: 09/07/24 Order Info: 183-05 - CBCD Order Info: 25555-0 - SED Performed By: #### L 501.9520, L101.9900, L100.0100, L500.4050 #### [facility] [address] [place], [address] Monocytes/100 WBC (Bld) 7.4 % Normal 0-10 [facility] Comment on above: Order Comment: Order Date: 09/07/24 Order Info: 01808-15 - CBCD Order Info: 12315-0 - SED Performed By: #### L 501.9520, L101.9900, L100.0100, L500.4050 #### [facility] [address] [place], [address] Neutrophils/100 WBC (Bld) 65.3 % Normal 47-70 [facility] Comment on above: Order Comment: Order Date: 09/07/24 Order Info: 01808-15 - CBCD Order Info: 54227-6 - SED Performed By: #### L 501.9520, L101.9900, L100.0100, L500.4050 #### [facility] [address] [place], [address] Nucleated RBC (Bld) [#/Vol] 0 10*3/uL Normal 0-5 [facility] Comment on above: Order Comment: Order Date: 09/07/24 Order Info: 01808-15 - CBCD Order Info: 54213-6 - SED Performed By: #### L 501.9520, L101.9900, L100.0100, L500.4050 #### [facility] [address] [place], [address] Platelet mean volume (Bld) [Entitic vol] 11.6 fL Normal 6.2-12.0 [facility] Comment on above: Order Comment: Order Date: 09/07/24 Order Info: 01808-15 - CBCD Order Info: 99555-6 - SED Performed By: #### L 501.9520, L101.9900, L100.0100, L500.4050 #### [facility] [address] [place], [address] Platelets (Bld) [#/Vol] 280 10*3/uL Normal 150-450 [facility] Comment on above: Order Comment: Order Date: 09/07/24 Order Info: 01808-15 - CBCD Order Info: 40816-8 - SED Performed By: #### L 501.9520, L101.9900, L100.0100, L500.4050 #### [facility] [address] [place], [address] RBC (Bld) [#/Vol] 4.40 10*6/uL Normal 4.2-5.4 [facility] Comment on above: Order Comment: Order Date: 09/07/24 Order Info: 01808-15 - CBCD Order Info: 82786-5 - SED Performed By: #### L 501.9520, L101.9900, L100.0100, L500.4050 #### [facility] [address] [place], [address] RDW SD 42.8 fl Normal 35.1-43.9 [facility] Comment on above: Order Comment: Order Date: 09/07/24 Order Info: 018- - CBCD Order Info: 36905-0 - SED Performed By: #### L 501.9520, L101.9900, L100.0100, L500.4050 #### [facility] [address] [place], [address] WBC (Bld) [#/Vol] 8.4 10*3/uL Normal 4.4-11.0 [facility] Comment on above: Order Comment: Order Date: 09/07/24 Order Info: 01808-15 - CBCD Order Info: 19002-7 - SED Performed By: #### L 501.9520, L101.9900, L100.0100, L500.4050 #### [facility] [address] [place], [address] Carbon dioxide, total [Moles /volume] in Central venous bloodOrdered By: Tomás Baker on 09-07-2024 CO2 [Moles/Vol] 19.7 mmol/L Low 21.0-32.0 [facility] Chloride assayOrdered By: Brooke Baker on 09-07-2024 Chloride [Moles/Vol] 107 mmol/L 98-108 [facility] Comprehensive Metabolic Prof ilon 09-07-2024 Albumin [Mass/Vol] 4.2 g/dL Normal 3.4-4.8 [facility] Comment on above: Order Comment: Order Date: 09/07/24Order Info: 0786-1 - CMPOrder Info: 3015-07 - TSH Performed By: #### L 501.9520, L101.9900, L100.0100, L500.4050 ####[facility] [address] [place], [address] Albumin/Globulin [Mass ratio] 1.5 {ratio} Normal 0.9-2.4 [facility] Comment on above: Order Comment: Order Date: 09/07/24Order Info: 0786-1 - CMPOrder Info: 3015-07 - TSH Performed By: #### L 501.9520, L101.9900, L100.0100, L500.4050 ####[facility] [address] [place], [address] ALK PHOS 61 U/L Normal 35-104 [facility] Comment on above: Order Comment: Order Date: 09/07/24Order Info: 0786- - CMPOrder Info: 3 - TSH Performed By: #### L 501.9520, L101.9900, L100.0100, L500.4050 ####[facility] [address] [place], [address] ALT [Catalytic activity/Vol] 12 U/L Normal <=34 [facility] Comment on above: Order Comment: Order Date: 09/07/24Order Info: 0786-1 - CMPOrder Info: 3015-3 - TSH Performed By: #### L 501.9520, L101.9900, L100.0100, L500.4050 ####[facility] [address] [place], [address] AST [Catalytic activity/Vol] 19 U/L Normal <=31 [facility] Comment on above: Order Comment: Order Date: 09/07/24Order Info: 0786-1 - CMPOrder Info: 3015-3 - TSH Performed By: #### L 501.9520, L101.9900, L100.0100, L500.4050 ####[facility] [address] [place], [address] Bilirubin [Mass/Vol] 0.68 mg/dL Normal 0.00-1.30 [facility] Comment on above: Order Comment: Order Date: 09/07/24Order Info: 0786-1 - CMPOrder Info: 3 - TSH Performed By: #### L 501.9520, L101.9900, L100.0100, L500.4050 ####[facility] [address] [place], [address] BUN/CRE 16.9 RATIO Normal 10-20 [facility] Comment on above: Order Comment: Order Date: 09/07/24Order Info: 0786- - CMPOrder Info: 3 - TSH Performed By: #### L 501.9520, L101.9900, L100.0100, L500.4050 ####[facility] [address] [place], [address] Calcium [Mass/Vol] 9.6 mg/dL Normal 7.6-11.0 [facility] Comment on above: Order Comment: Order Date: 09/07/24Order Info: 0786-1 - CMPOrder Info: 3015-3 - TSH Performed By: #### L 501.9520, L101.9900, L100.0100, L500.4050 ####[facility] [address] [place], [address] Chloride [Moles/Vol] 107 mmol/L Normal 98-108 [facility] Comment on above: Order Comment: Order Date: 09/07/24Order Info: 0786-1 - CMPOrder Info: 3015-3 - TSH Performed By: #### L 501.9520, L101.9900, L100.0100, L500.4050 ####[facility] [address] [place], [address] CO2 [Moles/Vol] 19.7 mmol/L Low 21.0-32.0 [facility] Comment on above: Order Comment: Order Date: 09/07/24Order Info: 07- - CMPOrder Info: 3015-3 - TSH Performed By: #### L 501.9520, L101.9900, L100.0100, L500.4050 ####[facility] [address] [place], [address] Creatinine [Mass/Vol] 0.90 mg/dL Normal 0.70-1.20 [facility] Comment on above: Order Comment: Order Date: 09/07/24Order Info: 0786- - CMPOrder Info: 3015-3 - TSH Performed By: #### L 501.9520, L101.9900, L100.0100, L500.4050 ####[facility] [address] [place], [address] GAP 15 Normal 5-15 [facility] Comment on above: Order Comment: Order Date: 09/07/24Order Info: 0786-1 - CMPOrder Info: 6-3 - TSH Performed By: #### L 501.9520, L101.9900, L100.0100, L500.4050 ####[facility] [address] [place], [address] GFR/1.73 sq M.predicted among non-blacks MDRD (S/P/Bld) [Vol rate/Area] 64 mL/min/{1.73_m2} Normal >60 [facility] Comment on above: Order Comment: Order Date: 09/07/24Order Info: 0786-1 - CMPOrder Info: 3015-3 - TSH Result Comment: mL/m in/1.73m2 CKD-EPI Creatinine Equation (2020) Performed By: #### L 501.9520, L101.9900, L100.0100, L500.4050 ####[facility] [address] [place], [address] Globulin (S) [Mass/Vol] 2.9 g/dL Normal 2.2-4.2 [facility] Comment on above: Order Comment: Order Date: 09/07/24Order Info: 0786-1 - CMPOrder Info: 3015-07 - TSH Performed By: #### L 501.9520, L101.9900, L100.0100, L500.4050 ####[facility] [address] [place], [address] Glucose [Mass/Vol] 92 mg/dL Normal 70-99 [facility] Comment on above: Order Comment: Order Date: 09/07/24Order Info: 0786-1 - CMPOrder Info: 3015-07 - TSH Performed By: #### L 501.9520, L101.9900, L100.0100, L500.4050 ####[facility] [address] [place], [address] Potassium [Moles/Vol] 3.9 mmol/L Normal 3.3-5.1 [facility] Comment on above: Order Comment: Order Date: 09/07/24Order Info: 0786-1 - CMPOrder Info: 3 - TSH Performed By: #### L 501.9520, L101.9900, L100.0100, L500.4050 ####[facility] [address] [place], [address] Sodium [Moles/Vol] 142 mmol/L Normal 133-145 [facility] Comment on above: Order Comment: Order Date: 09/07/24Order Info: 0786-1 - CMPOrder Info: 3016-3 - TSH Performed By: #### L 501.9520, L101.9900, L100.0100, L500.4050 ####[facility] [address] [place], [address] T PROT 7.1 g/dL Normal 5.9-8.4 [facility] Comment on above: Order Comment: Order Date: 09/07/24Order Info: 0786-1 - CMPOrder Info: 3016-3 - TSH Performed By: #### L 501.9520, L101.9900, L100.0100, L500.4050 ####[facility] [address] [place], [address] Urea nitrogen [Mass/Vol] 15 mg/dL Normal 4-19 [facility] Comment on above: Order Comment: Order Date: 09/07/24Order Info: 0786-1 - CMPOrder Info: 3016-3 - TSH Performed By: #### L 501.9520, L101.9900, L100.0100, L500.4050 ####[facility] [address] [place], [address] Eosinophil percentageOrdered By: Tomás Baker on 09-07-2024 Eosinophils/100 WBC (Bld) 1.3 % 0-5 [facility] Erythrocyte Sed Rateon 09-07 SED RATE 18 mm/hr Normal 0-30 [facility] Comment on above: Order Comment: Order Date: 09/07/24Order Info: 0184-1 - CBCDOrder Info: 28900-5 - SED Performed By: #### L 501.9520, L101.9900, L100.0100, L500.4050 ####[facility] [address] [place], [address] Erythrocyte distribution wid th ratioOrdered By: Tomás Baker on 09-07-2024 Erythrocyte distribution width (RBC) [Ratio] 12.6 % 11.6-14.6 [facility] Erythrocyte distribution wid th standard deviationOrdered By: Tomás Baker on 09-07-2024 Erythrocyte distribution width (RBC) [Ratio] 42.8 fl 35.1-43.9 [facility] Erythrocyte sedimentation ra teOrdered By: Tomás Baker on 09-07-2024 ESR (Bld) [Velocity] 18 mm/h 0-30 [facility] Glomerular filtration rate ( GFR) estimation/1.73 sq m using serum, plasma, or whole bOrdered By: Tomás Baker on 09-07-2024 GFR/1.73 sq M.predicted among non-blacks MDRD (S/P/Bld) [Vol rate/Area] 64 mL/min/{1.73_m2} >60 [facility] Comment on above: mL/min/1.73m2 CKD-EP I Creatinine Equation (2020) Hematocrit Auto (Bld) [Volum e fraction]Ordered By: Tomás Baker on 09-07-2024 Hematocrit (Bld) [Volume fraction] 40.5 % 37-47 [facility] Hemoglobin measurementOrdere d By: Tomás Baker on 09-07-2024 Hemoglobin (Bld) [Mass/Vol] 13.0 g/dL 12.0-15.0 [facility] Immature granulocytes/100 WB C Auto (Bld)Ordered By: Tomás aBker on 09-07-2024 Immature granulocytes/100 WBC (Bld) 0.200 % 0.0-0.9 [facility] Comment on above: IG% - Immature Granu locytes (promyelocytes, myelocytes and metamyelocytes) > 1% indicates that a LEFT SHIFT is Present. Laboratory - Chemistry and C hemistry - challengeOrdered By: Tomás Baker on 09-07-2024 AST [Catalytic activity/Vol] 19 U/L <32 [facility] MCV (mean corpuscular volume ) determinationOrdered By: Tomás Baker on 09-07-2024 MCV (RBC) [Entitic vol] 92.0 fL 81-99 [facility] Mean corpuscular hemoglobin (MCH) determinationOrdered By: Tomás Baker on 09-07-2024 MCH (RBC) [Entitic mass] 29.5 pg 27.0-32.0 [facility] Mean corpuscular hemoglobin concentration (MCHC) determinationOrdered By: Tomás Baker on 09-07-2024 MCHC (RBC) [Mass/Vol] 32.1 g/dL 32-36 [facility] Mean platelet volume determi nationOrdered By: Tomás Baker on 09-07-2024 Platelet mean volume (Bld) [Entitic vol] 11.6 fL 6.2-12.0 [facility] Monocyte percentageOrdered B y: Tomás Baker on 09-07-2024 Monocytes/100 WBC (Bld) 7.4 % 0-10 [facility] Neutrophil percentageOrdered By: Tomás Baker on 09-07-2024 Neutrophils/100 WBC (Bld) 65.3 % 47-70 [facility] Nucleated red blood cell per centageOrdered By: Tomás Baker on 09-07-2024 Nucleated RBC/100 WBC (Bld) [Ratio] 0 % 0-5 [facility] Platelet countOrdered By: Brooke Baker on 09-07-2024 Platelets (Bld) [#/Vol] 280 10*3/uL 150-450 [facility] Potassium measurement (mass/ volume)Ordered By: Tomás Baker on 09-07-2024 Potassium (Unsp spec) [Mass/Vol] 3.9 mmol/L 3.3-5.1 [facility] RBC Auto (Bld) [#/Vol]Ordere d By: Tomás Baker on 09-07-2024 RBC (Bld) [#/Vol] 4.40 10*6/uL 4.2-5.4 [facility] Serum creatinine measurement (mass/volume)Ordered By: Tomás Baker on 09-07-2024 Creatinine [Mass/Vol] 0.90 mg/dL 0.70-1.20 [facility] Serum globulin measurementOr dered By: Tomás Baker on 09-07-2024 Globulin (S) [Mass/Vol] 2.9 g/dL 2.2-4.2 [facility] Serum glucose measurement (m ass/volume)Ordered By: Tomás Baker on 09-07-2024 Glucose [Mass/Vol] 92 mg/dL 70-99 [facility] Serum or plasma alanine interiano otransferase (ALT) measurementOrdered By: Tomás Baker on 09-07-2024 ALT [Catalytic activity/Vol] 12 U/L <35 [facility] Serum or plasma albumin kasey urement (mass/volume)Ordered By: Tomás Baker on 09-07-2024 Albumin [Mass/Vol] 4.2 g/dL 3.4-4.8 [facility] Serum or plasma albumin/glob ulin mass ratioOrdered By: Tomás Baker on 09-07-2024 Albumin/Globulin [Mass ratio] 1.5 {ratio} 0.9-2.4 [facility] Serum or plasma alkaline sundar sphatase measurementOrdered By: Tomás Baker on 09-07-2024 ALP [Catalytic activity/Vol] 61 U/L 35-104 [facility] Serum or plasma calcium kasey urement (mass/volume)Ordered By: Tomás Baker on 09-07-2024 Calcium [Mass/Vol] 9.6 mg/dL 7.6-11.0 [facility] Serum or plasma urea nitroge n measurement (mass/volume)Ordered By: Tomás Baker on 09-07-2024 Urea nitrogen [Mass/Vol] 15 mg/dL 4-19 [facility] Sodium levelOrdered By: Lynnette Baker on 09-07-2024 Sodium [Moles/Vol] 142 mmol/L 133-145 [facility] TSH DL <= 0.005 mIU/L QnOrde red By: Tomás Baker on 09-07-2024 TSH Qn 1.050 uIU/mL 0.300-4.200 [facility] Thyroid Stim Hormone (TSH)on 09-07-2024 TSH 1.050 uIU/mL Normal 0.300-4.200 [facility] Comment on above: Order Comment: Order Date: 09/07/24Order Info: [id number] - CMPOrder Info: [id number] - TSH Performed By: #### L 501.9520, L101.9900, L100.0100, L500.4050 ####[facility] [address] [place], [address] Total proteinOrdered By: Damian michael Samuel on 09-07-2024 Protein [Mass/Vol] 7.1 g/dL 5.9-8.4 [facility] White blood cell (WBC) count Ordered By: Tomás Baker on 09-07-2024 WBC (Bld) [#/Vol] 8.4 10*3/uL 4.4-11.0 [facility] Comprehensive Metabolic Prof ilon 12-15-2023 Albumin [Mass/Vol] 3.8 g/dL Normal 3.2-5.0 [facility] Comment on above: Order Comment: Order Date: 10/06/23 Order Info: [id number] - CMP Order Info: [id number] - LIPID Order Info: [id number] - TSH Performed By: #### L 506.1000, L509.1000, L500.4050, L501.9520, L500.4100 #### [facility] [address] [place], [address] Albumin/Globulin [Mass ratio] 1.1 {ratio} Normal 0.9-2.4 [facility] Comment on above: Order Comment: Order Date: 10/06/23 Order Info: 0786- - CMP Order Info: [id number] - LIPID Order Info: [id number] - TSH Performed By: #### L 506.1000, L509.1000, L500.4050, L501.9520, L500.4100 #### [facility] [address] [place], [address] ALK P 55 U/L Normal 45-117 [facility] Comment on above: Order Comment: Order Date: 10/06/23 Order Info: [id number] - CMP Order Info: [id number] - LIPID Order Info: 3 - TSH Performed By: #### L 506.1000, L509.1000, L500.4050, L501.9520, L500.4100 #### [facility] [address] [place], [address] ALT [Catalytic activity/Vol] 21 U/L Normal 13-56 [facility] Comment on above: Order Comment: Order Date: 10/06/23 Order Info: 785- - CMP Order Info: [id number] - LIPID Order Info: 3 - TSH Performed By: #### L 506.1000, L509.1000, L500.4050, L501.9520, L500.4100 #### [facility] [address] [place], [address] AST [Catalytic activity/Vol] 18 U/L Normal 15-37 [facility] Comment on above: Order Comment: Order Date: 10/06/23 Order Info: [id number] - CMP Order Info: - LIPID Order Info: [id number] - TSH Performed By: #### L 506.1000, L509.1000, L500.4050, L501.9520, L500.4100 #### [facility] [address] [place], [address] Bilirubin [Mass/Vol] 0.70 mg/dL Normal 0.20-1.00 [facility] Comment on above: Order Comment: Order Date: 10/06/23 Order Info: [id number] - CMP Order Info: - LIPID Order Info: [id number] - TSH Result Comment: For patients on eltrombopag therapy, use of Dimension [place] TBIL is not recommended. Performed By: #### L 506.1000, L509.1000, L500.4050, L501.9520, L500.4100 #### [facility] [address] [place], [address] BUN/CRE 17.9 RATIO Normal 10-20 [facility] Comment on above: Order Comment: Order Date: 10/06/23 Order Info: [id number] - CMP Order Info: - LIPID Order Info: [id number] - TSH Performed By: #### L 506.1000, L509.1000, L500.4050, L501.9520, L500.4100 #### [facility] [address] [place], [address] CA,Total 9.2 mg/dL Normal 8.5-10.1 [facility] Comment on above: Order Comment: Order Date: 10/06/23 Order Info: [id number] - CMP Order Info: [id number] - LIPID Order Info: [id number] - TSH Performed By: #### L 506.1000, L509.1000, L500.4050, L501.9520, L500.4100 #### [facility] [address] [place], [address] Chloride [Moles/Vol] 110 mmol/L High 98-107 [facility] Comment on above: Order Comment: Order Date: 10/06/23 Order Info: 07 - CMP Order Info: [id number] - LIPID Order Info: [id number] - TSH Performed By: #### L 506.1000, L509.1000, L500.4050, L501.9520, L500.4100 #### [facility] [address] [place], [address] CO2 [Moles/Vol] 21.0 mmol/L Normal 21.0-32.0 [facility] Comment on above: Order Comment: Order Date: 10/06/23 Order Info: 0786 - CMP Order Info: [id number] - LIPID Order Info: [id number] - TSH Performed By: #### L 506.1000, L509.1000, L500.4050, L501.9520, L500.4100 #### [facility] [address] [place], [address] Creatinine [Mass/Vol] 0.95 mg/dL Normal 0.55-1.02 [facility] Comment on above: Order Comment: Order Date: 10/06/23 Order Info: [id number] - CMP Order Info: [id number] - LIPID Order Info: [id number] - TSH Result Comment: The validity of the calculated GFR GFRAA in patients over 70 years has not been determined. Clinical correlation is essential. Performed By: #### L 506.1000, L509.1000, L500.4050, L501.9520, L500.4100 #### [facility] [address] [place], [address] EST GFR - AA 72 mL/min Normal >60 [facility] Comment on above: Order Comment: Order Date: 10/06/23 Order Info: 07- - CMP Order Info: - LIPID Order Info: [id number] - TSH Result Comment: Afri can [place] GFR Calc Performed By: #### L 506.1000, L509.1000, L500.4050, L501.9520, L500.4100 #### [facility] [address] [place], [address] GAP 9 Normal 5-15 [facility] Comment on above: Order Comment: Order Date: 10/06/23 Order Info: [id number] - CMP Order Info: - LIPID Order Info: [id number] - TSH Performed By: #### L 506.1000, L509.1000, L500.4050, L501.9520, L500.4100 #### [facility] [address] [place], [address] GFR/1.73 sq M.predicted among non-blacks MDRD (S/P/Bld) [Vol rate/Area] 60 mL/min/{1.73_m2} Normal >60 [facility] Comment on above: Order Comment: Order Date: 10/06/23 Order Info: [id number] - CMP Order Info: - LIPID Order Info: [id number] - TSH Result Comment: Non- GFR Calc Performed By: #### L 506.1000, L509.1000, L500.4050, L501.9520, L500.4100 #### [facility] [address] [place], [address] Globulin (S) [Mass/Vol] 3.5 g/dL Normal 2.2-4.2 [facility] Comment on above: Order Comment: Order Date: 10/06/23 Order Info: 785- - CMP Order Info: - LIPID Order Info: 3 - TSH Performed By: #### L 506.1000, L509.1000, L500.4050, L501.9520, L500.4100 #### [facility] [address] [place], [address] Glucose [Mass/Vol] 103 mg/dL Normal 74-106 [facility] Comment on above: Order Comment: Order Date: 10/06/23 Order Info: [id number] - CMP Order Info: - LIPID Order Info: 3 - TSH Result Comment: Fast ing Glucose result from 100 to 125 mg/dL suggests IMPAIRED HOMEOSTASIS per A.D.A. criteria. Performed By: #### L 506.1000, L509.1000, L500.4050, L501.9520, L500.4100 #### [facility] [address] [place], [address] Potassium [Moles/Vol] 4.1 mmol/L Normal 3.5-5.1 [facility] Comment on above: Order Comment: Order Date: 10/06/23 Order Info: [id number] - CMP Order Info: - LIPID Order Info: [id number] - TSH Performed By: #### L 506.1000, L509.1000, L500.4050, L501.9520, L500.4100 #### [facility] [address] [place], [address] Sodium [Moles/Vol] 140 mmol/L Normal 136-145 [facility] Comment on above: Order Comment: Order Date: 10/06/23 Order Info: [id number] - CMP Order Info: - LIPID Order Info: [id number] - TSH Performed By: #### L 506.1000, L509.1000, L500.4050, L501.9520, L500.4100 #### [facility] [address] [place], [address] T PROT 7.3 g/dL Normal 6.4-8.2 [facility] Comment on above: Order Comment: Order Date: 10/06/23 Order Info: [id number] - CMP Order Info: [id number] - LIPID Order Info: 3 - TSH Performed By: #### L 506.1000, L509.1000, L500.4050, L501.9520, L500.4100 #### [facility] [address] [place], [address] Urea nitrogen [Mass/Vol] 17 mg/dL Normal 7-18 [facility] Comment on above: Order Comment: Order Date: 10/06/23 Order Info: [id number] - CMP Order Info: [id number] - LIPID Order Info: 3 - TSH Performed By: #### L 506.1000, L509.1000, L500.4050, L501.9520, L500.4100 #### [facility] [address] [place], [address] Lipid Profileon 12-15-2023 Cholesterol [Mass/Vol] 205 mg/dL High 200 [facility] Comment on above: Order Comment: Order Date: 10/06/23 Order Info: [id number] - CMP Order Info: [id number] - LIPID Order Info: [id number] - TSH Result Comment: <200 mg/dL Desirable 200-240 mg/dL Borderline >240 mg/dL High Risk Performed By: #### L 506.1000, L509.1000, L500.4050, L501.9520, L500.4100 #### [facility] [address] [place], [address] Cholesterol in HDL [Mass/Vol] 75 mg/dL Normal [facility] Comment on above: Order Comment: Order Date: 10/06/23 Order Info: [id number] - CMP Order Info: - LIPID Order Info: [id number] - TSH Result Comment: The drugs N-Acetylcysteine and Metamizole may falsely depress this assay. Reference Range HDL <40 mg/dL Low HDL Cholesterol HDL >or= 60 mg/dL High HDL Cholesterol Performed By: #### L 506.1000, L509.1000, L500.4050, L501.9520, L500.4100 #### [facility] [address] [place], [address] Cholesterol in LDL [Mass/Vol] 97 mg/dL Normal 0-130 [facility] Comment on above: Order Comment: Order Date: 10/06/23 Order Info: [id number] - CMP Order Info: - LIPID Order Info: [id number] - TSH Performed By: #### L 506.1000, L509.1000, L500.4050, L501.9520, L500.4100 #### [facility] [address] [place], [address] Cholesterol in VLDL [Mass/Vol] 33 mg/dL Normal 5-40 [facility] Comment on above: Order Comment: Order Date: 10/06/23 Order Info: [id number] - CMP Order Info: - LIPID Order Info: [id number] - TSH Performed By: #### L 506.1000, L509.1000, L500.4050, L501.9520, L500.4100 #### [facility] [address] [place], [address] Triglyceride [Mass/Vol] 163 mg/dL Normal [facility] Comment on above: Order Comment: Order Date: 10/06/23 Order Info: [id number] - CMP Order Info: - LIPID Order Info: [id number] - TSH Result Comment: The drugs N-Acetylcysteine and Metamizole may falsely depress this assay. Serum Triglycerides Reference Interval Normal <150 mg/dL Borderline high 150 - 199 mg/dL High 200 - 499 mg/dL Very High > or = 500 mg/dL Performed By: #### L 506.1000, L509.1000, L500.4050, L501.9520, L500.4100 #### [facility] [address] [place], [address] PTHINon 12-15-2023 PTH 55.1 pg/mL Normal 18.4-80.1 [facility] Comment on above: Order Comment: Order Date: 10/06/23 Order Info: [id number] - PTHIN Performed By: #### L 506.1000, L509.1000, L500.4050, L501.9520, L500.4100 #### [facility] [address] [facility] [place], [address] Thyroid Stim Hormone (TSH)on 12-15-2023 TSH 1.11 uIU/mL Normal 0.358-3.74 [facility] Comment on above: Order Comment: Order Date: 10/06/23 Order Info: [id number] - CMP Order Info: [id number] - LIPID Order Info: [id number] - TSH Performed By: #### L 506.1000, L509.1000, L500.4050, L501.9520, L500.4100 #### [facility] [address] [place], [address] Vitamin D,25 Hydroxyon 12-14 Vitamin D 25-OH 32.5 ng/mL Normal [facility] Comment on above: Order Comment: Order Date: 10/06/23 Order Info: [id number] - VITD25 Result Comment: Susan min D 25(OH) Status Range Deficiency <20 ng/mL (50nmol/L) Insufficiency 20 - 30 ng/mL (50 - 75 nmol/L) Sufficiency 30 - 100 ng/mL (75 - 250 nmol/L) Toxicity >100 ng/mL (>250 nmol/L) Performed By: #### L 506.1000, L509.1000, L500.4050, L501.9520, L500.4100 #### [facility] [address] [place], [address] Absolute lymphocyte countOrd ered By: Malvin Baker on 12-09-2022 Lymphocytes Auto (Unsp spec) [#/Vol] 1.49 10*3/uL 0.83-4.51 [facility] Basophil percentageOrdered B y: Malvin Baker on 12-09-2022 Basophils/100 WBC (Bld) 0.4 % 0-1 [facility] Bilirubin [Mass/Vol] 0.80 mg/dL 0.20-1.00 [facility] Comment on above: For patients on eltr ombopag therapy, use of Dimension [place] TBIL is not recommended. Chloride [Moles/Vol] 112 mmol/L 98-107 [facility] Cholesterol [Mass/Vol] 280 mg/dL <200 [facility] Comment on above: <200 mg/dL Desirable 200-240 mg/dL Borderline >240 mg/dL High Risk Eosinophils/100 WBC (Bld) 1.3 % 0-5 [facility] Glucose [Mass/Vol] 99 mg/dL 74-106 [facility] Neutrophils (Bld) [#/Vol] 4.8 10*3/uL 2.0-7.7 [facility] Neutrophils/100 WBC (Bld) 70.2 % 47-70 [facility] Potassium [Moles/Vol] 4.1 mmol/L 3.5-5.1 [facility] Protein [Mass/Vol] 7.4 g/dL 6.4-8.2 [facility] Sodium [Moles/Vol] 143 mmol/L 136-145 [facility] Triglyceride [Mass/Vol] 186 mg/dL <199 [facility] Comment on above: The drugs N-Acetylcy steine and Metamizole may falsely depress this assay.Serum Triglycerides Reference Interval Normal <150 mg/dL Borderline high 150 - 199 mg/dL High 200 - 499 mg/dL Very High > or = 500 mg/dL WBC (Bld) [#/Vol] 6.9 10*3/uL 4.4-11.0 [facility] Blood erythrocytes count (nu mber/volume)Ordered By: Malvin Baker on 12-09-2022 RBC (Bld) [#/Vol] 4.81 10*6/uL 4.2-5.4 [facility] Blood hemoglobin measurement (mass/volume)Ordered By: Malvin Baker on 12-09-2022 Hemoglobin (Bld) [Mass/Vol] 14.1 g/dL 12.0-15.0 [facility] Blood lymphocytes/100 leukoc ytesOrdered By: Mavlin Baker on 12-09-2022 Lymphocytes/100 WBC (Bld) 21.6 % 19-41 [facility] Blood monocytes/100 leukocyt esOrdered By: Malvin Baker on 12-09-2022 Monocytes/100 WBC (Bld) 6.2 % 0-10 [facility] Blood platelet mean volumeOr dered By: Malvin Baker on 12-09-2022 Platelet mean volume (Bld) [Entitic vol] 11.1 fL 6.2-12.0 [facility] Determination of erythrocyte mean corpuscular volume (MCV)Ordered By: Malvin Baker on 12-09-2022 MCV (RBC) [Entitic vol] 93.6 fL 81-99 [facility] Hematocrit Auto (Bld) [Volum e fraction]Ordered By: Malvin Baker on 12-09-2022 Hematocrit (Bld) [Volume fraction] 45.0 % 37-47 [facility] - Chemistry and C hemistry - challengeOrdered By: Malvin Baker on 12-09-2022 ALP [Catalytic activity/Vol] 55 U/L 45-117 [facility] ALT [Catalytic activity/Vol] 17 U/L 13-56 [facility] CO2 [Moles/Vol] 23.0 mmol/L 21.0-32.0 [facility] Globulin (S) [Mass/Vol] 3.6 g/dL 2.2-4.2 [facility] Urea nitrogen/Creatinine [Mass ratio] 15.3 mg/mg 10-20 [facility] - Hematology and Cell countsOrdered By: Malvin Baker on 12-09-2022 Erythrocyte distribution width (RBC) [Entitic vol] 43.9 fL 35.1-43.9 [facility] Erythrocyte distribution width (RBC) [Ratio] 12.6 % 11.6-14.6 [facility] Immature granulocytes/100 WBC (Bld) 0.300 % 0.0-0.9 [facility] Comment on above: IG% - Immature Granu locytes (promyelocytes, myelocytes and metamyelocytes) > 1% indicates that a LEFT SHIFT is Present. MCH (RBC) [Entitic mass] 29.3 pg 27.0-32.0 [facility] Nucleated RBC/100 WBC (Bld) [Ratio] 0 % 0-5 [facility] MCHC Auto (RBC) [Mass/Vol]Or dered By: Malvin Baker on 12-09-2022 MCHC (RBC) [Mass/Vol] 31.3 g/dL 32-36 [facility] No Panel InformationOrdered By: Malvin Baker on 12-09-2022 Estimated GFR (MDRD) Amer 70 mL/min >60 [facility] Comment on above: GFR Calc Estimated GFR (MDRD) Non-Af Amer 58 mL/min >60 [facility] Comment on above: Non- GFR Calc Thyroid Stimulating Hormone (TSH) 1.26 uIU/mL 0.358-3.74 [facility] Platelets bldOrdered By: Damian Baker on 12-09-2022 Platelets (Bld) [#/Vol] 291 10*3/uL 150-450 [facility] Serum or plasma albumin kasey urement (mass/volume)Ordered By: Malvin Baker on 12-09-2022 Albumin [Mass/Vol] 3.8 g/dL 3.2-5.0 [facility] Serum or plasma albumin/glob ulin mass ratioOrdered By: Malvin Baker on 12-09-2022 Albumin/Globulin [Mass ratio] 1.1 {ratio} 0.9-2.4 [facility] Serum or plasma calcium kasey urement (mass/volume)Ordered By: Malvin Baker on 12-09-2022 Calcium [Mass/Vol] 9.1 mg/dL 8.5-10.1 [facility] Serum or plasma cholesterol in HDL measurement (mass/volume)Ordered By: Malvin Baker on 12-09-2022 Cholesterol in HDL [Mass/Vol] 79 mg/dL >40 [facility] Comment on above: The drugs N-Acetylcy steine and Metamizole may falsely depress this assay. Reference Range HDL <40 mg/dL Low HDL Cholesterol HDL >or= 60 mg/dL High HDL Cholesterol Serum or plasma cholesterol in VLDL measurement (mass/volume)Ordered By: Malvin Baker on 12-09-2022 Cholesterol in VLDL [Mass/Vol] 37 mg/dL 5-40 [facility] Serum or plasma creatinine m easurement (mass/volume)Ordered By: Malvin Baker on 12-09-2022 Creatinine [Mass/Vol] 0.98 mg/dL 0.55-1.02 [facility] Comment on above: The validity of the calculated GFR & GFRAA in patients over 70 years has not been determined. Clinical correlation is essential. Serum or plasma low density lipoprotein (LDL) cholesterol measurement (mass/volume)Ordered By: Malvin Baker on 12-09-2022 Cholesterol in LDL [Mass/Vol] 164 mg/dL 0-130 [facility] Serum or plasma urea nitroge n measurement (mass/volume)Ordered By: Malvin Baker on 12-09-2022 Urea nitrogen [Mass/Vol] 15 mg/dL 7-18 [facility] Thin prep Papanicolaou smear with manual screeningOrdered By: Malvin Baker on 12-09-2022 Thin prep Papanicolaou smear with manual screening 13 U/L 15-37 [facility] Thin prep Papanicolaou smear with manual screening 8 5-15 [facility] Basophil percentageon 2021 Bilirubin [Mass/Vol] 0.60 mg/dL 0.20-1.00 [facility] Work Phone: Comment on above: For patients on eltr ombopag therapy, use of Dimension [place] TBIL is not recommended. Chloride [Moles/Vol] 112 mmol/L 98-107 [facility] Work Phone: Cholesterol [Mass/Vol] 161 mg/dL <200 [facility] Work Phone: Comment on above: <200 mg/dL Desirable 200-240 mg/dL Borderline >240 mg/dL High Risk Glucose [Mass/Vol] 96 mg/dL 74-106 [facility] Work Phone: Potassium [Moles/Vol] 4.1 mmol/L 3.5-5.1 [facility] Work Phone: Protein [Mass/Vol] 6.8 g/dL 6.4-8.2 [facility] Work Phone: Sodium [Moles/Vol] 142 mmol/L 136-145 [facility] Work Phone: Triglyceride [Mass/Vol] 158 mg/dL <199 [facility] Work Phone: Comment on above: The drugs N-Acetylcy steine and Metamizole may falsely depress this assay.Serum Triglycerides Reference Interval Normal <150 mg/dL Borderline high 150 - 199 mg/dL High 200 - 499 mg/dL Very High > or = 500 mg/dL Laboratory - Chemistry and C hemistry - challengeon 12-08-2021 ALP [Catalytic activity/Vol] 55 U/L 45-117 [facility] Work Phone: ALT [Catalytic activity/Vol] 31 U/L 13-56 [facility] Work Phone: CO2 [Moles/Vol] 23.0 mmol/L 21.0-32.0 [facility] Work Phone: Globulin (S) [Mass/Vol] 3.2 g/dL 2.2-4.2 [facility] Work Phone: Urea nitrogen/Creatinine [Mass ratio] 13.8 mg/mg 10-20 [facility] Work Phone: No Panel Informationon 12-08 Estimated GFR (MDRD) Amer 81 mL/min >60 [facility] Work Phone: Comment on above: GFR Calc Estimated GFR (MDRD) Non-Af Amer 67 mL/min >60 [facility] Work Phone: Comment on above: Non- GFR Calc Vitamin D 25-Hydroxy 38.3 ng/mL [facility] Work Phone: Comment on above: Vitamin D 25(OH) Sta tus Range Deficiency <20 ng/mL (50nmol/L) Insufficiency 20 - 30 ng/mL (50 - 75 nmol/L) Sufficiency 30 - 100 ng/mL (75 - 250 nmol/L) Toxicity >100 ng/mL (>250 nmol/L) Serum or plasma albumin kasey urement (mass/volume)on 12-08-2021 Albumin [Mass/Vol] 3.6 g/dL 3.2-5.0 [facility] Work Phone: Serum or plasma albumin/glob ulin mass ratioon 12-08-2021 Albumin/Globulin [Mass ratio] 1.1 {ratio} 0.9-2.4 [facility] Work Phone: Serum or plasma calcium kasey urement (mass/volume)on 12-08-2021 Calcium [Mass/Vol] 9.2 mg/dL 8.5-10.1 [facility] Work Phone: Serum or plasma cholesterol in HDL measurement (mass/volume)on 12-08-2021 Cholesterol in HDL [Mass/Vol] 79 mg/dL >40 [facility] Work Phone: Comment on above: The drugs N-Acetylcy steine and Metamizole may falsely depress this assay. Reference Range HDL <40 mg/dL Low HDL Cholesterol HDL >or= 60 mg/dL High HDL Cholesterol Serum or plasma cholesterol in VLDL measurement (mass/volume)on 12-08-2021 Cholesterol in VLDL [Mass/Vol] 32 mg/dL 5-40 [facility] Work Phone: Serum or plasma creatinine m easurement (mass/volume)on 12-08-2021 Creatinine [Mass/Vol] 0.87 mg/dL 0.55-1.02 [facility] Work Phone: Comment on above: The validity of the calculated GFR & GFRAA in patients over 70 years has not been determined. Clinical correlation is essential. Serum or plasma low density lipoprotein (LDL) cholesterol measurement (mass/volume)on 12-08-2021 Cholesterol in LDL [Mass/Vol] 50 mg/dL 0-130 [facility] Work Phone: Serum or plasma urea nitroge n measurement (mass/volume)on 12-08-2021 Urea nitrogen [Mass/Vol] 12 mg/dL 7-18 [facility] Work Phone: Thin prep Papanicolaou smear with manual screeningon 12-08-2021 Thin prep Papanicolaou smear with manual screening 21 U/L 15-37 [facility] Work Phone: Thin prep Papanicolaou smear with manual screening 7 5-15 [facility] Work Phone: CNOVon 09-07-2017 CNOV Office Visit (ABELINOWS) CHIQUI ARREOLA ([id number]) 1945 FDate Time Provider Department09/07/17 2:40 PM DIAMOND KHANNA During your visit today, we recorded the following information about you: Pulse Respiration Blood pressure Weight 64/minute 12/minute 146/94 70.8 kgDiamond Khanna MD 09/07/2017 3:21 PM SignedPatient presents with:pain in right hipHPI: Patient presents today for office visit for acute visit.Patient complains of: hip painDuration: six weeksLocation:rightAssoc iated Symptoms: no trauma. Similar to issues that she had in her shoulderthat required an injection. Does not keep her awake at night. Positions tend tomake it a little better.Bearing wait on it well. Using cane. No swelling in the leg or redness orwarmth.Aggravating factors:is painful at the end of the day. Worst pain is in thebuttock. No back pain. No radicular symptoms.Things that improve symptoms :using aleveHad echo last year that showed mild AI.Requests letter requiring an emotional support animal.Her daughter has cancer and has a lot of issues.Might need to occasionally bring her animal for support.bp is up.No chest pain or shortness of breath. No edema.No abd pain. No gi issues. Currently.MEDICATIONS:No current outpatient prescriptions on file.No current facility-administered medications for this visit.ALLERGIES:ALLERGIE o Known AllergiesPAST MEDICAL HISTORYDiagnosis Date- Aortic insufficiency- Diverticulitis of colon (without mention of hemorrhage)(562.11)- Other and unspecified hyperlipidemia- Squamous cell carcinoma leg, removed 08/06/11AST SURGICAL HISTORYProcedure Laterality Date- APPENDECTOMY 07/09/05- COLONOSCOPY 03/31/05- PAST SURGICAL HISTORY OF 07/09/05 ovaries removed at same time of appendectomy- PAST SURGICAL HISTORY OF 09/10/80 breast implants- VAGINAL HYSTERECTOMY 05/1991FAMILY HISTORYProblem Relation Age of Onset- None Mother mom in mva at age 37- Heart Father father at 77- was smoker- Diabetes Paternal Grandmother Social History Marital status: Spouse name: Years of education: Number of children:Social History Main Topics Smoking status: Never Smoker Smokeless status: Never Used Alcohol use: Yes Comment: wine on weekends Drug use: No Sexual activity: Yes Partners with: MaleReviewed current medications, allergies, past medical history, surgicalhistory, family history and social history today.REVIEW OF SYSTEMSAll other reviewed and negative other than HPI.HEALTH MAINTENANCE:Reviewed health maintenance issues today and recommended the following indetail.MAMMOGRAM -declines.VITALS:BP 146/94 Pulse 64 Resp 12 Wt 70.8 kg (156 lb) BMI 29.84 kg/m2Last 4 Encounter Wt Readings: Date: Wt: 09/07/2017 70.8 kg (156 lb) 09/08/2016 70.6 kg (155 lb 9.6 oz) 08/28/2015 69.9 kg (154 lb) 02/04/2011 68.9 kg (152 lb)PHYSICAL EXAMINATION:General appearance: Well appearing, alert, in no acute distress, well-hydrated,well nourished.Skin: Skin color, texture, turgor normal, no suspicious rashes or lesionsBACK: Normal curvature of spine. No spine tenderness. Straight leg testnegative. Deep tendon reflexes 2+/4 at patellas. Normal lower extremitystrength.Extrem ities: No deformities, edema, skin discoloration, clubbing or cyanosis.Good capillary refill. , not tender over hip bursa, negative figure four.Musculoskeletal: No joint swelling, deformity, or tendernessASSESSMENT/SULMA N:1. Right buttock pain - ICD9: 729.1, ICD10: M79.1 (primary diagnosis)- I suspect is lumbar related. She wants hip xrayed as well. Discussed risksand benefits of new medication with the patient. Advised them to call if anyside effects or questions.- avoid nsaids due to bp.- consider physical therapy.- XR LUMBAR GENERAL 3V AP/LAT/L5-S1- XR HIP GENERAL 3V PELV/AP/LAT RT- TIZANIDINE 4 MG TABLET2. Elevated BP without diagnosis of hypertension - ICD9: 796.2, ICD10: R03.0- Encouraged dietary sodium restriction/DASH diet- bp check in two weeks. Avoid aleve.Jamari Perdomo MD 09/07/2017 3:03 PM SignedWe would like to thank you for choosing to have us care for your medical needs.We are constantly working to try and make your office experience a good one andhave developed new options for your medical care.We now offer OPEN ACCESS SCHEDULING in our office. Our office works a littledifferent because we have a medical team that works together that includes , Arnulfo CUEVAS, and our nursing staff. Open access means that you canchoose to come in for routine visits or acute visits with our office five daysa week, without calling first or scheduling an appointment ahead of time. Thisallows you to be seen when you want to be seen by just stopping at the frontdesk on arrival. It also allows you to be taken care of by the same medicalteam each and every time you have an issue.This service is ONLY for patients of Dr. Khanna and Arnulfo Recinos and, usually, ourwait times are not different from our regular office visits. We also still alsohave scheduled office visits available for those who do not wish to be able towalk in to be seen.Open access hours are: Wednesday 8 am-6 pm Wednesday 8 am-4 pm Wednesday 8 am-4 pm 8 am-6 pm Wednesday 8 am-4 pmPlease remember that we are also available by phone at [phone]. You canalso contact our office directly by using the ANDquot;MESSAGE MY DOCTORANDquot; tabon your my chart for non emergent questions or issues.Referring Provider: SELF [[id number]]Allergies As of Date: 09/07/2017(No Known Allergies)Date Reviewed: 09/07/2017Reviewed by: Rafael Gallegos Ma - Fully AssessedReason for Visit: pain in right hip [Other]Primary Visit Diagnosis:Right buttock pain [M79.1] Other Visit Diagnosis:Elevated BP without diagnosis of hypertension [R03.0]Order(s):XR LUMBAR GENERAL 3V AP/LAT/L5-S1 [[id number]] Order #: [id number] FUTURE XR HIP GENERAL 3V PELV/AP/LAT RT [[id number]] Order #: [id number] FUTURE tiZANidine (ZANAFLEX) 4 mg tabletTake 1 tablet by mouth every 8 hours as needed.Disp: 20 tabletRfl: 0Prescriptions as of 09/07/2017 Sig: TIZANIDINE 4 MG TABLET Take 1 tablet by mouth every *Problem List As Of Date 09/07/2017 Noted Resolved Neoplasm of uncertain behavior of skin [D48.5] INVALID FOR*09/08/2016 Hyperlipidemia [E78.5] INVALID FOR* Elevated BP [SAR8041] INVALID FOR*09/01/2016 Anxiety [F41.9] INVALID FOR* Abnormal EKG [R94.31] INVALID FOR*09/08/2016 Osteoporosis [M81.0] INVALID FOR* Squamous cell carcinoma (HCC) [C44.92] More... Aortic insufficiency [I35.1] Other instructions from your clinician: We would like to thank you for choosing to have us care for your medical needs. We are constantly working to try and make your office experience a good one and have developed new options for your medical care. We now offer OPEN ACCESS SCHEDULING in our office. Our office works a little different because we have a medical team that works together that includes Dr. Khanna, Arnulfo CUEVAS, and our nursing staff. Open access means that you can choose to come in for routine visits or acute visits with our office five days a week, without calling first or scheduling an appointment ahead of time. This allows you to be seen when you want to be seen by just stopping at the front line leader on arrival. It also allows you to be taken care of by the same medical team each and every time you have an issue. This service is ONLY for patients of Dr. Khanna and Arnulfo Recinos and, usually, our wait times are not different from our regular office visits. We also still also have scheduled office visits available for those who do not wish to be able to walk in to be seen. Open access hours are: Wednesday 8 am-6 pm Wednesday 8 am-4 pm Wednesday 8 am-4 pm 8 am-6 pm Wednesday 8 am-4 pm Please remember that we are also available by phone at [phone]. You can also contact our office directly by using the MESSAGE MY DOCTOR tab on your my chart for non emergent questions or issues.Prescriptions ordered this encounter Disp Refills Start End TIZANIDINE 4 MG TABLET 20 t* 0 09/07/2017 Route: ORAL Sig: Take 1 tablet by mouth every 8 hours as needed.Disposition: Return if symptoms worsen or fail to improve.Follow-up and Disposition History RecordedLetter TextWoosterDepartment of Family [address]adtl[address] [place] [phone]: Chiqui Dalyenter[address] [facility] [address]Nujwxc #: [id number] requires an emotional support animal.Sincerely:Diamond Khanna MDEncounter Number: [id number] Status:Closed by DIAMOND KHANNA MD on 09/07/17 [facility] PROGRESSon 09-07-2017 PROGRESS HNO ID: [id number]: Jm Gaspar (Rt) Tati Gutiérrez: (none)Author Type: TechnicianType: Progress NotesFiled: 09/07/2017 4:11 PMNote Text: Radiology Service Progress NotePATIENT NAME: Chiqui LoaizaMRN: [id number] OF SERVICE: September 07, 2017TIME: 4:00 PMPATIENT IDENTITY VERIFICATION COMPLETED USING TWO (2) METHODS: Patientconfirmed name verbally and Date of .PATIENT GENDER DATA: Female. status: : NoBreastfeeding status: NO.PATIENT RELEVANT IMPLANT DATA REVIEWED: Not ApplicableRADIOLOGY DEPARTMENT: General X-ray: Exam(s) Completed: Spine X-Ray(s):Lumbar AP / LAT / L5-V6Giopjm X-Ray: Pelvis with Hip RightPERIPHERAL IV DATA: Not applicableSIGNED BY: Billy Julien 2017 4:00 PM Normal [facility] Frenandes PROGRESS HNO ID: [id number]: Diamond Enrique: (none)Author Type: PhysicianType: Progress NotesFiled: 09/07/2017 3:21 PMNote Text:Patient presents with:pain in right hipHPI: Patient presents today for office visit for acute visit.Patient complains of: hip painDuration: six weeksLocation:rightAssoc iated Symptoms: no trauma. Similar to issues that she had in hershoulder that required an injection. Does not keep her awake at night.Positions tend to make it a little better.Bearing wait on it well. Using cane. No swelling in the leg or redness orwarmth.Aggravating factors:is painful at the end of the day. Worst pain is in thebuttock. No back pain. No radicular symptoms.Things that improve symptoms :using aleveHad echo last year that showed mild AI.Requests letter requiring an emotional support animal.Her daughter has cancer and has a lot of issues.Might need to occasionally bring her animal for support.bp is up.No chest pain or shortness of breath. No edema.No abd pain. No gi issues. Currently.MEDICATIONS:No current outpatient prescriptions on file.No current facility-administered medications for this visit.ALLERGIES:ALLERGIE SNo Known AllergiesPAST MEDICAL HISTORYDiagnosis Date- Aortic insufficiency- Diverticulitis of colon (without mention of hemorrhage)(562.11)- Other and unspecified hyperlipidemia- Squamous cell carcinoma leg, removed 08/06/11AST SURGICAL HISTORYProcedure Laterality Date- APPENDECTOMY 07/09/05- COLONOSCOPY 03/31/05- PAST SURGICAL HISTORY OF 07/09/05 ovaries removed at same time of appendectomy- PAST SURGICAL HISTORY OF 09/10/80 breast implants- VAGINAL HYSTERECTOMY 05/1991FAMILY HISTORYProblem Relation Age of Onset- None Mother mom in mva at age 37- Heart Father father at 77- was smoker- Diabetes Paternal Grandmother Social History Marital status: Spouse name: Years of education: Number of children:Social History Main Topics Smoking status: Never Smoker Smokeless status: Never Used Alcohol use: Yes Comment: wine on weekends Drug use: No Sexual activity: Yes Partners with: MaleReviewed current medications, allergies, past medical history, surgicalhistory, family history and social history today.REVIEW OF SYSTEMSAll other reviewed and negative other than HPI.HEALTH MAINTENANCE:Reviewed health maintenance issues today and recommended the following indetail.MAMMOGRAM -declines.VITALS:BP 146/94 Pulse 64 Resp 12 Wt 70.8 kg (156 lb) BMI 29.84 kg/m2Last 4 Encounter Wt Readings: Date: Wt: 09/07/2017 70.8 kg (156 lb) 09/08/2016 70.6 kg (155 lb 9.6 oz) 08/28/2015 69.9 kg (154 lb) 02/04/2011 68.9 kg (152 lb)PHYSICAL EXAMINATION:General appearance: Well appearing, alert, in no acute distress,well-hydrated, well nourished.Skin: Skin color, texture, turgor normal, no suspicious rashes or lesionsBACK: Normal curvature of spine. No spine tenderness. Straight leg testnegative. Deep tendon reflexes 2+/4 at patellas. Normal lower extremitystrength.Extrem ities: No deformities, edema, skin discoloration, clubbing orcyanosis. Good capillary refill. , not tender over hip bursa, negativefigure four.Musculoskeletal: No joint swelling, deformity, or tendernessASSESSMENT/SULMA N:1. Right buttock pain - ICD9: 729.1, ICD10: M79.1 (primary diagnosis)- I suspect is lumbar related. She wants hip xrayed as well. Discussedrisks and benefits of new medication with the patient. Advised them tocall if any side effects or questions.- avoid nsaids due to bp.- consider physical therapy.- XR LUMBAR GENERAL 3V AP/LAT/L5-S1- XR HIP GENERAL 3V PELV/AP/LAT RT- TIZANIDINE 4 MG TABLET2. Elevated BP without diagnosis of hypertension - ICD9: 796.2, ICD10:R03.0- Encouraged dietary sodium restriction/DASH diet- bp check in two weeks. Avoid aleve.Diamond Khanna MD Normal [facility] XR HIP 3V PELV+ AP/LAT RTon 09-07-2017 XR HIP 3V PELV+ AP/LAT RT * * *Final Report* * *DATE OF EXAM: Sep 07 2017 4:15PM WOX [id number] - XR HIP 3V PELV+ AP/LAT RT / REASON: Myalgia * * * * Physician Interpretation * * * * EXAM: LUMBAR SPINE, 3 VIEWS; AP PELVIS AND RIGHT HIP, 3 VIEWSCLINICAL: 72-year-old female with myalgiaTECHNIQUE: AP, lateral coned down lateral ; AP pelvis, coned down AP and frog lateral right hipCOMPARISON: NoneRESULTS: Counting reference: The iliac crest level is considered L4.L5 or the first vertebrae proximal to the sacrum is considered L5. Straightening of normal lumbar lordosis. Mild narrowing of L3/L4 and mild to moderate narrowing of L4/L5 disc space. Vertebral bodies and pedicles are intact. Mild facet degenerative changes L2/L3 through L5/S1. Faint abdominal aortic calcifications.AP pelvis and right hip: Right hip joint space is maintained. No fracture. Cyclic joints are intact.IMPRESSION: DEGENERATIVE DISC AND FACET DISEASE IN LUMBAR SPINE.RIGHT HIP IS WITHIN NORMAL LIMITS.Consulting Sales Executive: KEERTHI Transcribe Date/Time: Sep 08 2017 11:03ADictated by : SCOTT IBANEZ MDThis examination was interpreted and the report reviewed and electronically signed by: SCOTT IBANEZ MD on Sep 08 2017 11:06AM [id number] N Normal [facility] XR LUMBAR 3V AP/LAT/L5-S1on 09-07-2017 XR LUMBAR 3V AP/LAT/L5-S1 * * *Final Report* * *DATE OF EXAM: Sep 07 2017 4:15PM WOX [id number] - XR LUMBAR 3V AP/LAT/L5-S1 / REASON: Myalgia * * * * Physician Interpretation * * * * EXAM: LUMBAR SPINE, 3 VIEWS; AP PELVIS AND RIGHT HIP, 3 VIEWSCLINICAL: 72-year-old female with myalgiaTECHNIQUE: AP, lateral coned down lateral ; AP pelvis, coned down AP and frog lateral right hipCOMPARISON: NoneRESULTS: Counting reference: The iliac crest level is considered L4.L5 or the first vertebrae proximal to the sacrum is considered L5. Straightening of normal lumbar lordosis. Mild narrowing of L3/L4 and mild to moderate narrowing of L4/L5 disc space. Vertebral bodies and pedicles are intact. Mild facet degenerative changes L2/L3 through L5/S1. Faint abdominal aortic calcifications.AP pelvis and right hip: Right hip joint space is maintained. No fracture. Cyclic joints are intact.IMPRESSION: DEGENERATIVE DISC AND FACET DISEASE IN LUMBAR SPINE.RIGHT HIP IS WITHIN NORMAL LIMITS.Consulting Sales Executive: KEERTHI Transcribe Date/Time: Sep 08 2017 11:03ADictated by : SCOTT IBANEZ MDThis examination was interpreted and the report reviewed and electronically signed by: SCOTT IBANEZ MD on Sep 08 2017 11:06AM [id number] N Normal [facility] Comp Metabolic Panelon 08-31 Alanine aminotransferase (ALT) 11 U/L Normal 7-38 [facility] Comment on above: Performed By: #### C CRISTINA LIPB ####[facility] [place], [place] [phone] Albumin 4.1 g/dL Normal 3.9-4.9 [facility] Comment on above: Performed By: #### C CRISTINA LIPB ####[facility] [place], [place] [phone] Alkaline phosphatase (ALP) 62 U/L Normal 32-117 [facility] Comment on above: Performed By: #### C CRISTINA LIPB ####[facility] [address] [place], [place] [phone] Anion gap 17 mmol/L Normal 9-18 [facility] Comment on above: Performed By: #### C CRISTINA LIPB ####[facility] [address] [place], [place] [phone] Aspartate aminotransferase (AST) 17 U/L Normal 13-35 [facility] Comment on above: Performed By: #### C CRISTINA LIPB ####[facility] [address] [place] [phone] Bilirubin (total) 0.4 mg/dL Normal 0.2-1.3 [facility] Comment on above: Performed By: #### C CRISTINA, LIPB ####[facility] [place] AveCD[place] [phone] Calcium 9.1 mg/dL Normal 8.5-10.2 [facility] Comment on above: Performed By: #### C CRISTINA, LIPB ####[place] [id number] AveCDebbie [place] [phone] Chloride 105 mmol/L Normal 97-105 [facility] Comment on above: Performed By: #### C CRISTINA, LIPB ####[place] [address] [address] [place] [phone] CO2 21 mmol/L Low 22-30 [facility] Comment on above: Performed By: #### C CRISTINA, LIPB ####[place] [address] [address] [place] [address] [phone] Creatinine 0.82 mg/dL Normal 0.58-0.96 [facility] Comment on above: Performed By: #### C CRISTINA, LIPB ####[place] [address] [address] [place] Av[address] [place], [place] [phone] eGFR (non-black) mL/min/{1.73_m2} Normal [facility] Comment on above: Result Comment: eGFR (Estimated GFR) Units of measure: mL/min/1.73 meters squaredeGFR is derived from the reexpressed MDRD Study equation using the following parameters: serum creatinine, age, gender and race. The creatinine assay has been calibrated to be traceable to IDMS.An eGFR <60 mL/min/1.73m2 for >3 months is consistent with chronic kidney disease. Refer to KDOQI guidelines for clinical interpretation.In patients with unstable renal function, e.g. those with acute kidney injury, the eGFR may not accurately reflect actual GFR. Performed By: #### C CRISTINA, LIPB ####[place] [address] [place], [place] [phone] Glucose mass conc 92 mg/dL Normal 74-99 [facility] Comment on above: Result Comment: The [place] Diabetes Association (ADA) provides guidance for cutoff values for fasting glucose and random glucose. The ADA defines fasting as no caloric intake for at least 8 hours. Fasting plasma glucose results between 100 to 125 mg/dL indicate increased risk for diabetes (prediabetes).Fasting plasma glucose results greater than or equal to 126 mg/dL meet the criteria for diagnosis of diabetes. In the absence of unequivocal hyperglycemia, results should be confirmed by repeat testing. In a patient with classic symptoms of hyperglycemia or hyperglycemic crisis, random plasma glucose results greater than or equal to 200 mg/dL meet the criteria for diagnosis of diabetes.Reference: Standards of Medical Care in Diabetes 2016, [place] [employer] Association. Diabetes Care. 2016.39(Suppl 1). Performed By: #### C MP, LIPB ####[address] [phone] Potassium molar conc 4.1 mmol/L Normal 3.7-5.1 [facility] Comment on above: Performed By: #### C MP, LIPB ####[address] [phone] Protein 7.0 g/dL Normal 6.3-8.0 [facility] Comment on above: Performed By: #### C MP, LIPB ####[address] [phone] Sodium 143 mmol/L Normal 136-144 [facility] Comment on above: Performed By: #### C MP, LIPB ####[address] [phone] Urea nitrogen 19 mg/dL Normal 7-21 [facility] Comment on above: Performed By: #### C MP, LIPB ####[address] [phone] Lipid Panel, [place] 04-17-2 018 Cholesterol 220 mg/dL High <200 [facility] Comment on above: Result Comment: <200 mg/dL, Desirable 200-239 mg/dL, Borderline high>239 mg/dL, High Performed By: #### C MP, LIPB ####[facility] [place], [place] [phone] Fasting Time 13 hrs Normal [facility] Comment on above: Performed By: #### C MP, LIPB ####[facility] [address] [place] [phone] HDL Cholesterol 60 mg/dL Normal >39 [facility] Comment on above: Result Comment: 40-5 9 mg/dL, Acceptable>59 mg/dL, High: Negative risk factor for coronary heart disease<40 mg/dL, Low: Positive risk factor for coronary heart disease Performed By: #### C MP, LIPB ####[place] [id number] [place] [phone] LDL Cholesterol 123 mg/dL High <100 [facility] Comment on above: Result Comment: <100 mg/dL, Optimal 100-129 mg/dL, Near optimal/above optimal 130-159 mg/dL, Borderline high 160-189 mg/dL, High>189 mg/dL, Very highSecondary prevention optimal LDL Cholesterol levels are recommended to be < 70 mg/dL Performed By: #### C MP, LIPB ####[place] [id number] [place] [phone] LDL:HDL Ratio 2.05 Normal <2.54 [facility] Comment on above: Result Comment: Refe rence:1. National Cholesterol Education Program ATP III Guideline At-A-Glance Quick Desk Reference: National Heart, Lung, and Blood [place]. National Institutes of Health. 2001: NIH Publication No. 01-3305.2. An International Atherosclerosis Society position paper: global recommendations for the management of dyslipidemia: executive summary, Atherosclerosis. 2014: 232(2):410-413. Performed By: #### C MP, LIPB ####[facility] [address] [phone] Non HDL Cholesterol 160 mg/dL High <130 [facility] Comment on above: Result Comment: <130 mg/dL, Optimal 130-159 mg/dL, Near optimal/above optimal 160-189 mg/dL, Borderline high 190-219 mg/dL, High>219 mg/dL, Very highSecondary prevention optimal non HDL Cholesterol levels are recommended to be < 100 mg/dL Performed By: #### C MP, LIPB ####[address] [phone] TC:HDL Ratio 3.67 Normal <5.10 [facility] Comment on above: Performed By: #### C MP, LIPB ####[address] [phone] Triglyceride 186 mg/dL High <150 [facility] Comment on above: Result Comment: <150 mg/dL, Normal 150-199 mg/dL, Borderline high 200-499 mg/dL, High>499 mg/dL, Very high Performed By: #### C MP, LIPB ####[place] [phone] VLDL Cholesterol 37 mg/dL High <30 [facility] Comment on above: Performed By: #### C MP, LIPB ####[place] [id number] Vital Signs Date Time Vital Sign Value Performing Clinician Didi means 11-16-2024 13:31-0400 Body height 154.[address] Tomás Baker MD Work Phone: [facility] 11-16-2024 13:31-0400 Body mass index (BMI) [Ratio] 28.5 kg/m2 Dr. Tomás Baker MD Work Phone: [facility] 11-16-2024 13:31-0400 Body temperature 98.1 [degF] Dr. Tomás Baker MD Work Phone: [facility] 11-16-2024 13:31-0400 Body weight 68.[address] Tomás Baker MD Work Phone: [facility] 11-16-2024 13:31-0400 Diastolic blood pressure 80 mm[Hg] Dr. Tomás Baker MD Work Phone: [facility] 11-16-2024 13:31-0400 Heart rate 96 /min Dr. Tomás Baker MD Work Phone: [facility] 11-16-2024 13:31-0400 Respiratory rate 18 /min Dr. Tomás Baker MD Work Phone: [phone] [address] 11-16-2024 13:31-0400 SaO2% (BldA) [Mass fraction] 96 % Dr. Tomás Baker MD Work Phone: [phone] [place] [address] 11-16-2024 13:31-0400 Systolic blood pressure 149 mm[Hg] Dr. Tomás Baker MD Work Phone: [facility] 11-16-2024 08:00-0400 Diastolic blood pressure 76 mm[Hg] Dr. Tomás Baker MD Work Phone: [facility] 11-16-2024 08:00-0400 Heart rate 74 /min Dr. Tomás Baker MD Work Phone: [phone] [place] [address] 11-16-2024 08:00-0400 Respiratory rate 17 /min Dr. Tomás Baker MD Work Phone: [facility] 11-16-2024 08:00-0400 SaO2% (BldA) [Mass fraction] 97 % Dr. Tomás Baker MD Work Phone: [facility] 11-16-2024 08:00-0400 Systolic blood pressure 193 mm[Hg] Dr. Tomás Baker MD Work Phone: [facility] 10-27-2024 12:41-0400 Body height 154.[address] Tomás Baker MD Work Phone: [facility] 10-27-2024 12:41-0400 Body mass index (BMI) [Ratio] 28.5 kg/m2 Dr. Tomás Baker MD Work Phone: [facility] 10-27-2024 12:41-0400 Body weight 68.[address] Tomás Baker MD Work Phone: [facility] 10-27-2024 12:41-0400 Diastolic blood pressure 78 mm[Hg] Dr. Tomás Baker MD Work Phone: [facility] 10-27-2024 12:41-0400 Heart rate 67 /min Dr. Tomás Baker MD Work Phone: [facility] 10-27-2024 12:41-0400 Respiratory rate 17 /min Dr. Tomás Baker MD Work Phone: [facility] 10-27-2024 12:41-0400 Systolic blood pressure 195 mm[Hg] Dr. Tomás Baker MD Work Phone: [facility] Encounters Encounter Date Encounter Type Care Provider Facility Start: 11-16-2024 End: 11-16-[address] Kyle Mathew MD -[facility] Work Phone: Start: 11-16-2024 End: 11-16-[address] Tomás Baker MD Work Phone: -[facility] Start: 11-16-2024 End: 11-16-[address] Jas Palmer MD -[facility] Work Phone: Start: 11-16-2024 End: 11-16-[address] Tomás Baker MD Work Phone: -[facility] Start: 10-27-2024 End: 10-27-[address] Tomás Baker MD Work Phone: [facility] Work Phone: Start: 10-27-2024 End: 10-27-[address] Jas Palmer MD -[facility] Work Phone: Start: 10-27-2024 End: 10-27-[address] Jas Palmer MD -[facility] Work Phone: Start: 10-27-2024 End: 10-27-[address] Tomás Baker MD Work Phone: [facility] Work Phone: Start: 10-27-2024 End: 10-27-2024 [facility] Start: 09-07-2024 End: 09-07-[address] Tomás Baker MD -Laboratory [place] Work Phone: Start: 09-07-2024 End: 09-07-[facility] Start: 12-15-2023 End: 12-15-2023 [facility] Start: 01-08-2023 End: 01-08-[address] Malvin Baker Work Phone: [facility] Work Phone: Start: 01-08-2023 End: 01-08-[address] Malvin Baker Work Phone: [facility]-Outpatient Breast Imaging Work Phone: Start: 01-06-2023 End: 01-06-[address] Malvin Baker Work Phone: [facility] Work Phone: Start: 01-06-2023 End: 01-06-[address] Malvin Baker Work Phone: [facility]-Radiology, [place] Work Phone: Start: 01-01-2023 Non-patient / Non-visit Dr. Malvin Baker Work Phone: [facility] Start: 01-01-2023 End: 01-01-[address] Malvin Baker Work Phone: [facility] Work Phone: Start: 01-01-2023 End: 01-01-[address] [facility] Work Phone: Start: 12-09-2022 End: 12-09-2022 ambulatory [facility] Work Phone: Start: 12-09-2022 End: 12-09-2022 Patient encounter procedure [facility] Work Phone: Start: 12-08-2021 End: 12-08-2021 Patient encounter procedure [facility] Start: 09-07-2017 End: 09-08-2017 Ambulatory DIAMOND Lubin ISABELLA [facility] Start: 08-31-2017 End: 08-31-2017 Ambulatory DIAMOND Lubin [facility] Procedures Date Procedure Procedure Detail Performing Clinician Start: 09-07-2024 Plain X-ray abdomen Dr. Tomás Baker MD Work Phone: Start: 01-08-[address] Malvin Baker Work Phone: Start: 01-08-2023 Bilateral mammography Gerard Baker Work Phone: Start: 01-08-[address] Malvin Baker Work Phone: Start: 01-06-2023 Diagnostic radiograp hy of abdomen, decubitus and erect Dr. Malvin Baker Work Phone: Start: 01-01-2023 CT of chest without contrast Dr. Malvin Baker Work Phone: Start: 01-01-2023 Radionuclide imaging of perfusion of myocardium under exercise stress Dr. Malvin Baker Work Phone: Start: 12-09-2022 Plain chest X-ray Plan of Treatment Date Care Activity Detail Author Start: 11-22-2024 ambulatory Ambulatory Facility:[facility] Payers Date Payer Category Payer Self-pay [id number] 2020 Medicare [id number] 2020 Unknown [id number] Unknown [id number] 2.16.8 [id number] Unknown [id number] 2.16.8 [id number] Unknown [id number] 2.16.8 [id number] Unknown [id number] 2.16.8 [id number] Unknown [id number] 2.16.8 [id number] Unknown [id number] 2.16.8 [id number] Unknown [id number] 2.16.8 [id number] Social History Date Type Detail Facility Tobacco smoking stat us NHIS Unknown if ever smoked [facility] Work Phone: Start: 1945 Sex Assigned At Female [facility] Start: 10-27-2024 End: 11-16-2024 Tobacco smoking status NHIS Never smoked tobacco (finding) [facility] Progress note 11-16-2024 Note Date & Type Note Facility 11-16-2024 Progress note [facility] Progress note 11-16-2024 Note Date & Type Note Facility 11-16-2024 Progress note Note Date/Time November 16, 2024 8:13a m [facility] [address] [place], [place] [address] OFFICE VISIT Date of Service: 11/16/24 MR#: [id number] Acct: [id number] Name: CHIQUI LOAIZA Rep #: [id number] : 1945 Provider: Dr. Aisha Palmer MD Age/Sex: 79/F Location: [facility] Status: Signed Intake Vital Signs 10/27/24 12:41 11/16/24 08:00 Height 5 ft 1 in Weight: 151 lb BMI 28.5 BP 195/78 H 193/76 H Blood Pressure Location Rt brachial Position Sitting Sitting Respiration 17 17 Pulse 67 74 Pulse Source Monitor Monitor Pulse Oximetry (%) 97 Oxygen Delivery Method room air room air Intake Visit Reasons: Discuss possible surgery Chief Complaint: discuss surgery Is patient in pain?: No Allergies adhesive Allergy (Verified 11/16/24 08:02) Rash Medications ?Medication ?Instructions ?Recorded ?Confirmed ?Type aspirin 81 mg tablet 81 mg PO QDAY 10/27/2411/16 History lisinopril 40 mg tablet 40 mg PO QDAY 10/27/2411/16 History pravastatin 10 mg tablet 10 mg PO QDAY 10/27/2411/16 History Have you fallen in the past year?: No PFSH Medical History Breast cancer Mass of left breast High cholesterol HTN (hypertension) Surgical History (Updated 10/27/24 @ 12:31 by Yvette De Jesus) S/P hysterectomy S/P bilateral breast implants Family History (Updated 10/27/24 @ 12:32 by Yvette De Jesus) Daughter Breast cancer Father Heart disease Social History (Updated 10/27/24 @ 12:32 by Yvette De Jesus) Smoking Status: Never smoker alcohol intake: current HPI HPI HPI: Patient is an 79-year-old female with left breast cancer. She is here because the mass continues to bleed through her nipple. She is having blood loss daily. ROS General General: No weight change, appetite, fatigue, colon cancer, breast cancer or weakness HEENT HEENT: No difficulty swallowing, eye injury, eye surgery, swollen glands or hoarseness Endo Endocrine: No thyroid disease, diabetes mellitus, thyroid cancer, Hair loss, heat intolerance or cold intolerance Skin Skin: No rash or changing moles Breast Breast: No left breast lump, right breast lump, nipple discharge, breast pain, abnormal mammogram, abnormal US or breast enlargement Musc Musculoskeletal: No back problems, arthritis, rheumatoid arthritis, gout or joint pain Cardio Cardiovascular: No murmur, pacemaker, heart disease, atrial fibrillation, high blood pressure, heart attack, heart stent, palpitations, shortness of breath with exertion or chest pain Psych Psychiatric: No depression, anxiety or hearing voices Resp Respiratory: No shortness of breath, No sleep apnea, Yes cough, No COPD, No asthma, No emphysema and No wheezing Gastro Gastrointestinal: No abdominal pain, No nausea or vomiting, Yes diarrhea, Yes constipation, No blood in stool, No acid reflux, No hemorrhoids, No ulcers, No gallbladder problem and No black,tarry stools [place] Hematologic: No blood thinners, No blood disorders, Yes bleeding, No anemia and No blood clots Neuro Neurologic: No system reviewed and no additional complaints, except as documented, No as per HPI, No abnormal gait, No abnormal hearing, No abnormal movements, No abnormal speech, No behavioral changes, No burning sensations, No confusion, No convulsions, No disequilibrium, No dizziness, No localized weakness, No frequent falls, No headache(s), No lack of coordination, No loss ofvision, No memory loss, Yes numbness, No other visual disturbances, No radicularpain, No restless legs, No sensory deficit, No syncope, Yes tingling, No tremor(s), No weakness and No other Exam Const General: cooperative Orientation: alert and oriented x3 HENMT Head: normal to inspection Neck Neck: normal visual inspection and full ROM Chest Chest palpation & inspection: normal inspection of the chest Resp Effort & Inspection: normal respiratory effort Auscultation: clear to auscultation bilaterally Cardio Rate: regular rate Rhythm: regular rhythm GI Inspection: non-distended Palpation: soft and nontender Skin General: no rashes or lesions noted Neuro General: patient alert and patient oriented x3 Extrem General: full ROM Psych Appearance: grossly normal Mental Status: mental status grossly normal Assessment and Plan Assessment and Plan (1) Breast cancer: Status: Acute Qualifiers: Breast location: central portion of breast Estrogen receptor status: positive Patient sex: female Laterality: left Qualified Code(s): C50.112 - Malignant neoplasm of central portion of left female breast; Z17.0 - Estrogen receptor positive status [ER+] Plan: The patient has breast cancer on the left. She has decided she does not want chemotherapy or radiation. Continues to bleed daily. There is a significant amount of bleeding and she does show me pictures of her close that are saturated in blood. She would like a mastectomy to clear this up so that she stops bleeding. She has breast implants. I discussed the case with Dr. Mathew. I plan to perform a palliative mastectomy with implant removal. I discussed this with her in detail. I discussed the risks including but not limited to bleeding, infection, injury to underlying organs. I also discussed that this is not curative as she already has metastatic disease. I still encouraged her to see the oncologist to discuss possible treatment. They will also perform metastatic workup. Plan for mastectomy on November 22 with assistance from plastics. Jas Palmer MD Pager: [facility] [address] [place] [address], [address] [place] [address] Office: Orders: Referrals Plastic surgery C50.919 - Malignant neoplasm of unspecified site of unspecified female breast Coding Level of Care Code Off vis,est,level 3 Diagnoses Malignant neoplasm of central portion of left breast in female, estrogen receptor positive C50.112; Z17.0 Breast location: central portion of breast Estrogen receptor status: positive Patient sex: female Laterality: left Clinical Quality Measures Falls Risk Screening/Assistive Devices Have you fallen in the past year?: No 11/16/24 0847 <Electronically signed by Jas duggan MD> Date _ Jas Palmer MD Cosigner Signature: Date (if applicable) CC: ~ [facility] Work Phone: Evaluation note 10-27-2024 Note Date & Type Note Facility 10-27-2024 Evaluation note Diagnosis Onset Date Resolution Mass of left breast acute October 27, 2024 11:57am [facility] Work Phone: Evaluation note 10-27-2024 Note Date & Type Note Facility 10-27-2024 Evaluation note Diagnosis Onset Date Resolution Mass of left breast acute October 27, 2024 11:57am Breast cancer acute November 16, 7:40am [facility] Work Phone: Evaluation note Note Date & Type Note Facility Evaluation note No assessment information availa ble [facility] Work Phone: Hospital Discharge instructions Note Date & Type Note Facility Hospital Discharge instructions Ambulatory OrdersPlastic surgery Location: None Selected [facility] Work Phone: Reason for referral (narrative) Note Date & Type Note Facility Reason for referral (narrative) No reason for referral information available [facility] Work Phone: Summary Purpose Family History No Family History Records Found Relationship Condition Age at Onset Recorded Date/T neeraj daughter Malignant neoplasm of breast Unknown father Cardiac disease Unknown Advance Directives No Advanced Directives Records FoundNo Advanced Directives Records FoundNo Advanced Directives Records Found Chief Complaint and Reason for Visit Chief Complaint EORDER Chief Complaint EORDER Solitary pulmonary nodule Solitary pulmonary nodule EORDER Chief Complaint EORDER Solitary pulmonary nodule Solitary pulmonary nodule EORDER LEFT BREAST MASS Chief Complaint Admit Date E-ORDER September 07, 2024 11: 17am BLOODY BREAST MASS October 27, 2024 11:5 7am Chief Complaint Admit Date E-ORDER September 07, 2024 11: 17am BLOODY BREAST MASS October 27, 2024 11:5 7am LEFT BREAST MASS October 27, 2024 2:05 pm Reason for Visit Admit Date Mass of left breast October 27, 2024 11:5 7am Chief Complaint Admit Date E-ORDER September 07, 2024 11: 17am BLOODY BREAST MASS October 27, 2024 11:5 7am LEFT BREAST MASS October 27, 2024 2:05 pm Discuss possible surgery November 16, 2024 7:40am Reason for Visit Admit Date Mass of left breast October 27, 2024 11:5 7am Breast cancer November 16, 2024 7:40a m Chief Complaint Admit Date E-ORDER September 07, 2024 11: 17am BLOODY BREAST MASS October 27, 2024 11:5 7am LEFT BREAST MASS October 27, 2024 2:05 pm Discuss possible surgery November 16, 2024 7:40am IMPLANT REMOVAL November 16, 2024 1:21p m Additional Source Comments INFORMATION SOURCE (unrecogn ized section and content) DATE CREATED AUTHOR 11/04/2017 [facility] DATE CREATED AUTHOR AUTHOR'S ORGANIZ ATION 11/19/2024 [facility] DATE CREATED AUTHOR AUTHOR'S ORGANIZ ATION 11/19/2024 [facility] Goals (unrecognized section and content) Goals may be documented in a n alternate sectionGoals may be documented in an alternate sectionGoals may be documented in an alternate sectionGoals may be documented in an alternate sectionGoals may be documented in an alternate sectionGoals may be documented in an alternate sectionGoals may be documented in an alternate sectionGoals may be documented in an alternate sectionGoals may be documented in an alternate section Care Teams (unrecognized sec tion and content) Team Status: Active Member Role Status Dates Dr. Luke Serrano MD Family Provider Active Dr. Malvin Baker MD Primary Care Provider Activ e Team Status: Inactive Member Role Status Dates Dr. Malvin Baker MD Primary Care Provider, Attending Provider, Referring Provider Active Team Status: Active Member Role Status Dates Dr. Malvin Baker MD Primary Care Provider, Referring Provider, Other Provider Active Dr. Amanuel Braden MD Attending Provider Active Team Status: Active Member Role Status Dates Dr. Malvin Baker MD Primary Care Provider, Attending Provider, Referring Provider Active Team Status: Active Member Role Status Dates Dr. Luke Serrano MD Family Provider Active Dr. Tomás Baker MD Primary Care Provider Acti ve Team Status: Inactive Member Role Status Dates Dr. Tomás Baker MD Primary Care Provider Acti ve Start: September 07, 2024 End: September 07, 2024 Dr. Tomás Baker MD Attending Provider Active Start: September 07, 2024 End: September 07, 2024 Dr. Tomás Baker MD Referring Provider Active Start: September 07, 2024 End: September 07, 2024 Team Status: Inactive Member Role Status Dates Dr. Tomás Baker MD Primary Care Provider Acti ve Start: October 27, 2024 End: October 27, 2024 Dr. Tomás Baker MD Referring Provider Active Start: October 27, 2024 End: October 27, 2024 Dr. Jas Palmer MD Attending Provider Active Start: October 27, 2024 End: October 27, 2024 Team Status: Inactive Member Role Status Dates Dr. Tomás Baker MD Primary Care Provider Acti ve Start: October 27, 2024 End: October 27, 2024 Dr. Jas Palmer MD Attending Provider Active Start: October 27, 2024 End: October 27, 2024 Dr. Jas Palmer MD Referring Provider Active Start: October 27, 2024 End: October 27, 2024 Team Status: Active Member Role/Relationship Status Dates Dr. Luke Serrano MD Family Provider Active Dr. Tomás Baker MD Primary Care Provider Acti ve Team Status: Inactive Member Role/Relationship Status Dates Dr. Tomás Baker MD Primary Care Provider Acti ve Start: September 07, 2024 End: September 07, 2024 Dr. Tomás Baker MD Attending Provider Active Start: September 07, 2024 End: September 07, 2024 Dr. oTmás Baker MD Referring Provider Active Start: September 07, 2024 End: September 07, 2024 Team Status: Inactive Member Role/Relationship Status Dates Dr. Tomás Baker MD Primary Care Provider Acti ve Start: October 27, 2024 End: October 27, 2024 Dr. Tomás Baker MD Referring Provider Active Start: October 27, 2024 End: October 27, 2024 Dr. Jas Palmer MD Attending Provider Active Start: October 27, 2024 End: October 27, 2024 Team Status: Inactive Member Role/Relationship Status Dates Dr. Tomás Baker MD Primary Care Provider Acti ve Start: October 27, 2024 End: October 27, 2024 Dr. Jas Palmer MD Attending Provider Active Start: October 27, 2024 End: October 27, 2024 Dr. Jas Palmer MD Referring Provider Active Start: October 27, 2024 End: October 27, 2024 Team Status: Inactive Member Role/Relationship Status Dates Dr. Tomás Baker MD Primary Care Provider Acti ve Start: November 16, 2024 End: November 16, 2024 Dr. Tomás Baker MD Referring Provider Active Start: November 16, 2024 End: November 16, 2024 Dr. Jas Palmer MD Attending Provider Active Start: November 16, 2024 End: November 16, 2024 Team Status: Active Member Role/Relationship Status Dates Dr. Tomás Baker MD Primary Care Provider Acti ve Team Status: Inactive Member Role/Relationship Status Dates Dr. Tomás Baker MD Primary Care Provider Acti ve Start: November 16, 2024 End: November 16, 2024 Dr. Tomás Baker MD Referring Provider Active Start: November 16, 2024 End: November 16, 2024 Dr. Kyle Mathew MD Attending Provider Active Start: November 16, 2024 End: November 16, 2024 FOR RECORDS PERTAINING TO PATIENTS WHO ARE OR HAVE BEEN ENROLLED IN A CHEMICAL DEPENDENCY/SUBSTANCEABUSE PROGRAM, SOME INFORMATION MAY BE OMITTED. This clinical summary was aggregated from multiple sources. Caution should be exercised in using it in the provision of clinical care. This summary normalizes information from multiple sources, and as a consequence, information in this document may materially change the coding, format and clinical context of patient data. In addition, data may be omitted in some cases. CLINICAL DECISIONS SHOULD BE BASED ON THE PRIMARY CLINICAL RECORDS. [facility] [employer] provides no warranty or guarantee of the accuracy or completeness of information in this document.
[2024-11-23 06:04] LABS: Hematocrit 31.9 % (37-47); Hemoglobin 10.1 g/dL (12.0-15.0); Immature Granulocytes Count 0.040 X10^3/uL (0.0-0.0); Mean Corp Hgb Conc 31.7 g/dL (32-36); Mean Corpuscular Volume 94.7 fL (81-99); Mean Platelet Vol. 10.6 fl (6.2-12.0); NRBC Flagged by Analyzer 0 % (0-5); Platelet Count 238 K/mm3 (150-450); RBC Distribution Width CV 12.6 % (11.6-14.6); RBC Distribution Width SD 43.8 fl (35.1-43.9); Red Blood Count 3.37 M/mm3 (4.2-5.4); White Blood Count 7.6 K/mm3 (4.4-11.0)
[2024-11-23 06:52] LABS: Anion Gap 10 (5-15); BUN 11 mg/dL (4-19); BUN/Creat Ratio 14.2 RATIO (10-20); Calcium,Total 8.2 mg/dL (7.6-11.0); Carbon Dioxide 20.8 mmol/L (21.0-32.0); Chloride 111 mmol/L (98-108); Estimated Creatinine Clearance 49.61 ml/min (50-250); Glucose 105 mg/dL (70-99); Potassium 3.8 mmol/L (3.3-5.1)
--- NOTE | 2024-11-23 07:16 | PCM.PN.SRG ---
Subjective Subjective Pain controlled. No nausea or vomiting. Hypertensive overnight but no other issues. Appropriate output from the drains Objective Data Objective Data Vital Signs: Vital Signs Temp Pulse Resp BP Pulse Ox O2 Del Method O2 Flow Rate 98.3 F 73 16 151/54 H 95 Room Air 2 11/23/24 04:24 11/23/24 04:24 11/23/24 04:24 11/23/24 04:24 11/23/24 04:24 11/23/24 04:11/22/24 16:24 Oxygen Flow Rate (L/min) 2 Oxygen Delivery Method Room Air Weight: 156 lb Body Mass Index (BMI) 29.5 Intake & Output: Intake and Output for Last 24 Hours 11/21/24 11/22/24 11/23/24 23:59 23:59 23:59 Intake Total 1300 / 1300 1000 / 1000 Output Total 270 / 270 30 / 30 Balance 1030 / 1030 970 / 970 Lab / Micro Data 11/23/24 05:47 11/23/24 05:47 Labs: Laboratory Results - last 24 hr 11/23/24 05:47: WBC 7.6, RBC 3.37 L, Hgb 10.1 L, Hct 31.9 L, MCV 94.7, MCH 30.0, MCHC 31.7 L, RDW Std Deviation 43.8, RDW Coeff of John 12.6, Plt Count 238, MPV 10.6, Immature Gran % (Auto) 0.500, Neut % (Auto) 64.1, Lymph % (Auto) 23.4, [place] % (Auto) 9.8, Eos % (Auto) 1.5, Baso % (Auto) 0.7, Absolute Neuts (auto) 4.9, Absolute Lymphs (auto) 1.77, Nucleated RBC % 0, Sodium 142, Potassium 3.8, Chloride 111 H, Carbon Dioxide 20.8 L, Anion Gap 10, BUN 11, Creatinine 0.80, Estim Creat Clear Calc 49.61 L, Est GFR (MDRD) Non-Af 74, BUN/Creatinine Ratio 14.2, Glucose 105 H, Calcium 8.2 Physical Exam Narrative 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 Drain strips well with serosanguineous fluid Extremities SCDs on and activated no swelling Assessment & Plan Assessment/Plan (1) Breast implant capsular contracture: (2) Ruptured left breast implant: (3) Breast cancer: QUALIFIERS: Breast location: central portion of breast Estrogen receptor status: positive Patient sex: female Laterality: left Qualified Code(s): C50.112 - Malignant neoplasm of central portion of left female breast; Z17.0 - Estrogen receptor positive status [ER+] PLAN: Plan Okay for discharge from plastic surgery perspective Plan to follow-up in plastic surgery clinic in 1 week for exam Charges/Coding Procedures Integumentary 111xxx-[id number]: [id number] Global Visit
--- NOTE | 2024-11-23 09:03 | PCM.DC.SUM ---
Providers Date of Admission: 11/22/24 Primary Care Physician: Dr. Tomás Baker MD Reason For Visit: LEFT BREAST CANCER Diagnosis Discharge Diagnosis (1) Breast implant capsular contracture: Status: Acute Code(s): T85.44XA - Capsular contracture of breast implant, initial encounter (2) Ruptured left breast implant: Status: Acute Code(s): T85.43XA - Leakage of breast prosthesis and implant, initial encounter (3) Breast cancer: Status: Acute Code(s): C50.919 - Malignant neoplasm of unspecified site of unspecified female breast Qualifiers: Breast location: central portion of breast Estrogen receptor status: positive Laterality: left Patient sex: female Qualified Code(s): C50.112 - Malignant neoplasm of central portion of left female breast; Z17.0 - Estrogen receptor positive status [ER+] Medications at Discharge Home Medications aspirin 81 mg tablet 324 mg PO QDAY 10/27/24 lisinopril 40 mg tablet 40 mg PO QDAY 10/27/24 pravastatin 10 mg tablet 10 mg PO QDAY 10/27/24 acetaminophen 325 mg tablet 650 mg (2 x 325 mg) PO Q4H PRN PRN Pain 1-10 Or Fever #0 tabs 11/23/24 Hospital Course Operations - (Palliative left mastectomy with removal of implant by Dr. Palmer and Complete capsulectomy and removal of left breast implant (ruptured silicone, with extracapsular silicone) (CPT:02453, [id number]) by Dr. Mathew) Summary of Care Provided Minutes Spent on Discharge: 20 Hospital Course: Patient is an 79 y/o F who presented for an elective palliative left mastectomy and implant removal by Dr. Palmer and Dr. Mathew on 11/22/24. Patient tolerated the procedure well. She had an uneventful hospitalization. Upon discharge, patient notes very minimal amount of incision discomfort. She denies nausea, vomiting, fever. She is tolerating a regular diet. Incision dressings were changed. Patient is to follow-up next Wednesday or Wednesday for drain removal. Physical Exam Chest Chest Narrative: Left chest- incision c/d/i. No erythema or infection noted. ALICIA drain intact with serosanguineous fluid noted. Mastectomy bra intact Weight / BMI Weight Weight: 156 lb Body Mass Index (BMI) 29.5 ABG / Lab / Microbiology Data 11/23/24 05:47 11/23/24 05:47 Laboratory: Laboratory Results - last 24 hr 11/23/24 05:47: WBC 7.6, RBC 3.37 L, Hgb 10.1 L, Hct 31.9 L, MCV 94.7, MCH 30.0, MCHC 31.7 L, RDW Std Deviation 43.8, RDW Coeff of John 12.6, Plt Count 238, MPV 10.6, Immature Gran % (Auto) 0.500, Neut % (Auto) 64.1, Lymph % (Auto) 23.4, Griggs % (Auto) 9.8, Eos % (Auto) 1.5, Baso % (Auto) 0.7, Absolute Neuts (auto) 4.9, Absolute Lymphs (auto) 1.77, Nucleated RBC % 0, Sodium 142, Potassium 3.8, Chloride 111 H, Carbon Dioxide 20.8 L, Anion Gap 10, BUN 11, Creatinine 0.80, Estim Creat Clear Calc 49.61 L, Est GFR (MDRD) Non-Af 74, BUN/Creatinine Ratio 14.2, Glucose 105 H, Calcium 8.2 D/C Instructions Discharge Diet: Light diet - advance as tolerated Discharge Activity: May Not Drive (3-5 days) and May Not Shower (Until drain is removed) Ice area for (Minutes): 20 Lifting Restricted to (Lbs): 10 Lifting Restrictions: No lifting greater than 10 pounds for 1 month Call your doctor if your incision/area has: Continuous Slow Oozing, Sudden Increased Bleeding, Increased Pain/ Swelling, Increased Redness, Foul Smelling Discharge and Swelling at the incision site Call your doctor if you observe: Fever of 101 or Higher Suture Line Care: Avoid Pulling/Pushing and Avoid Pinching/Bending Change Dressing in: 1 day Additional Dressing/Incision Instructions: Recommend changing dressing daily. Empty ALICIA drain twice daily or more if needed DC O2, CPAP, BIPAP Needs Home O2 Discharge instructions: No DC home with Oxygen: No Please Follow Up With: Jas Palmer MD When: Please call our office at [phone], option #2 to schedule an appointment for Wednesday or Wednesday next week Meaningful Use Info Meaningful Use Meaningful Use Diagnoses (Choose all that apply): None applicable Ischemic Stroke Statin Dosing Therapy Reference: STATIN DOSE THERAPY REFERENCE: * Patients > 75 years receive moderate or high dose statin therapy. * Patients 75 years or YOUNGER should receive HIGH intensity statin dose unless contraindicated. You will be required to document reason for non-treatment if statin daily dose does not meet guidelines. HIGH DOSE STATIN THERAPY DAILY Atorvastatin > than or = to 40 mg Rosuvastatin > than or = to 20 mg Amlodipine + Atorvastatin > than or = to 2.5/40 mg Ezetimibe + Simvastatin 10/80 mg Simvastatin 80mg Discharge Plan Admission Admit Date/Time: 11/22/24 13:59 Primary Reason for Your Visit: Palliative left mastectomy with removal of implant Attending Provider: Jas Palmer Primary Care Provider: Tomás Baker Consulting Providers: Kyle Mathew Instructions Additional Instructions / Restrictions: Breast Mastectomy Diet ? Start light with soups and soft bland foods. You may advance diet as tolerated. Activity ? You may drive in 3-5 days but not while taking narcotic pain medication. ? I encourage walking. You may go up steps, one at a time. ? Do not swim or use hot tubs until your drains have been removed, and your surgeon has evaluated your progress. Lifting ? You may lift up to 10 pounds until your surgeon advises on unrestricted activity. ? Please limit over the head reaching and straining while your drains are in place. ? Once drains are removed, you may inquire about when range of motion exercises would be appropriate. Dressings/Incision ? Do not shower, or tub bathe until your surgeon has given you permission. For hygiene, sponge bathe only. ? If you have drains in place, then you may change the dressing daily and cleanse the drain sites with a Q-tip and peroxide followed by dry gauze and tape. The incision itself will normally have steri-strips or surgical glue and should not require cleansing. Medications ? Anesthesia used during surgery and pain medications may cause constipation. I recommend initiating on the day of surgery a fiber supplement like, Metamucil, Citrucel, FiberCon, Benefiber, or a generic form of these medications. 1 heaping tablespoon in water daily. You may continue to utilize any bowel regimen or oral laxatives that you routinely take. ? As long as you are not intolerant to Tylenol, acetaminophen, ibuprofen, Motrin, Advil, Aleve, or similar medications, I would recommend transitioning to these [id number] medicines as soon as possible instead of continued use of narcotic pain medication. Follow up ? You should call [facility] soon after surgery, at [phone] option 2 to make a follow up appointment for Wednesday or Wednesday next week Exercises following breast surgery The following stretching exercises should be done two (2) to three (3) repetitions, three times daily to ensure you regain the mobility of the shoulder you had prior to surgery. Begin these stretching exercises the day after surgery. Arm Lifts This is the most important exercise for you to do. While standing (or sitting on the edge of a chair), lift both arms directly over your head. Your goal is to have your elbows ?touching? your ears. Some find it helpful to do this exercise while looking in a mirror. Arm Swings While standing, swing both arms back and forth from the shoulder (like the pendulum of a clock). Attempt to keep the elbows stiff. Increase the distance of the swing each time. Wall Climbing Stand facing a wall with feet close to the wall. Climb the fingertips of both hands up the wall then creep them down again. Attempt to go a little higher each time. If you will be having post-operative radiation therapy following your breast surgery, you will be instructed additional way to do this exercise. It is important to keep the rest of your body active. Deep breaths and coughing are necessary after surgery. You may use stairs and ride in a car. Most people may drive seven days after surgery. Shaving, etc. Be careful when shaving under the arm or putting on deodorant. It is a good idea to look in the mirror while doing either, this is to prevent irritating the incision. Blood draws, injections: It is preferred that you have blood drawn or have an injection in the operative arm. THIS IS A PRECAUTIONARY MEASURE. If it is necessary for you to have blood drawn using this arm, mention that you have had breast surgery and have had lymph nodes removed. Two weeks after surgery you will notice some changes: You may feel discomfort in the armpit and/or down the arm. This is the beginning of the inner tissue healing and at this time, discomfort is normal. Increase you exercise routine and take mild pain medication (Tylenol or acetaminophen). Warm showers may also provide discomfort. At this time, you may notice the incision feels thick and lumpy, this is normal. The scar tissue can be softened by massaging the area with a mild lotion containing vitamin e or pure lanolin. These products may be purchased over the counter at any pharmacy or grocery store. After several weeks, the scar tissue will soften. Stay aware form perfumed lotions, as the alcohol in them may irritate the skin. If you are having post-operative radiation, do not apply anything to your skin without firs consulting your radiation oncologist. Swelling If you should develop any swelling (collection of fluid) in your arm, hand, near the incision or under your arm, please contact your surgeon. Sometimes, elevating the entire arm on pillows (higher than the level of your heart) will reduce some of the swelling. Do not sleep on your surgical side. This places the area in a dependent position and increases swelling of the breast and chest wall. A small amount of swelling of the breast, chest wall and armpit is normal for the first month after surgery. Going home with a drain: Patients who have undergone breast surgery are sometimes discharged with an external drainage device. The care, emptying and recording of the drainage will be demonstrated to you during your teaching session with the nurse prior to discharge. If you develop a fever over 101 degrees F, increased drainage (more than 240 cc/8 oz) over a 24 hours period or increased pain not controlled by pain medication, please call your doctors office. The amount of fluid that is drained over a 24-hour period will gradually decrease. The color may change from hoover red, to red orange, to straw color. When you return for your post-operative visit four to seven days after surgery it is usually time to remove the drain. Discharge Orders/Prescriptions Prescriptions: New acetaminophen 325 mg Tablet 650 mg PO Q4H PRN PRN (Reason: Pain 1-10 Or Fever) Qty: 0 0RF Continued lisinopril 40 mg tablet 40 mg PO QDAY pravastatin 10 mg tablet 10 mg PO QDAY aspirin 81 mg tablet 324 mg PO QDAY Referrals / Follow Up: Tomás Baker MD [Primary Care Provider] - Disposition Disposition (needs filled in before D/C Order can be placed): Home, Self Care Charges/Coding Visit Charges Inpatient E&M: 24897 Disch Hosp (post-op; no charge)
[2024-11-23 09:27] VITALS: BP 131/44; PULSE 90; RESP 18; TEMP 37.1; O2SAT 95
--- NOTE | 2024-11-23 10:55 | CASEMGMT ---
Noted pt has dc order in, RN CM into pt room pt sitting up in bed in no distress. Pt states she feels comfortable with drain and wound care at home. Pt states she has a man friend who can assist her as needed. Pt does not typically use AD but has a cane at home. Pt states her DPOA is her dtr and she brought the paperwork in yesterday to be filed. Updated SW.
--- NOTE | 2024-11-23 11:45 | WOUNDNOTE ---
Had reviewed dressing and drain care with patient. dressings changed. Dr Mathew and MASON Doll had both been in to see patient this am. Pt to follow up early next week for possible. ALICIA removal. Pt aware to record drainage and bring form to follow up appt. all needed supplies sent with patient. no further questions or concerns voiced at this time.
== END 2024-11-23 13:18 | disposition home or self-care (01) ==
LOC: SDC 14:48 → MS3 14:48
PROVIDERS: Surgery Plastic and Reconstructive Surgery; Admitting Provider Surgery; PCP Family Medicine; Referring Provider Surgery; Visit Provider Surgery
PROC: (CPT 19307; principal; 2024-11-22 12:40)
PROC: (CPT 19330; 2024-11-22 12:40)
DX: C50.112 Malignant neoplasm of central portion of left female breast (principal); C79.9 Secondary malignant neoplasm of unspecified site; E78.00 Pure hypercholesterolemia, unspecified; Z80.3 Family history of malignant neoplasm of breast; Z17.0 Estrogen receptor positive status [ER+]; I10 Essential (primary) hypertension; Z98.82 Breast implant status; T85.43XA Leakage of breast prosthesis and implant, initial encounter; Y82.8 Other medical devices associated with adverse incidents; Z79.899 Other long term (current) drug therapy
CPT/HCPCS: 19303; 19330; 00400; 36415; 80048; 85025; 88305; 88307; 88331; 88341; 88342; 93005; 96360; 96361; 99221; A4648; G0378; J2405

== ENCOUNTER → 2024-12-14 | Outpatient (CLI) | payer MEDICARE, BC, SELFPAY ==
--- NOTE | 2024-12-14 16:30 | CT_ITS ---
PROCEDURE: CT CHEST, ABD, PEL W/CONTRAST 12/14/2024 REASON FOR EXAM: BREAST CA-IV ONLY TECHNIQUE: CT CHEST, ABD, PEL W/CONTRAST coronal and Sagittal reconstruction series were provided. One or more dose reduction techniques were used (e.g., Automated exposure control, adjustment of the mA and/or kV according to patient size, use of iterative reconstruction technique. CONTRAST: Isovue-300 VOLUME: 97 mL RADIATION DOSE SUMMARY: DLP: 1074.49 mGycm COMPARISON: Chest CT 01/01/2023. No abdominal CT available. FINDINGS: Lungs/pleura: Clear. No airspace consolidation or findings of pulmonary edema. No pneumothorax or pleural effusions. No new or suspicious focal lung nodules identified. Several bilateral scattered tiny subcentimeter micronodules and small calcified granulomas, likely postinflammatory from prior granulomatous process. The central tracheobronchial tree is patent. Mediastinum/Nodes: No enlarged mediastinal or hilar lymph nodes identified. Multiple enlarged internal mammary chain lymph nodes, more prominent on the left concerning for progression of metastatic breast cancer. Increased size and number of multiple prominent rounded bilateral axillary and subpectoral lymph nodes, slightly greater on the left. Heart: Normal in size. No pericardial effusion. Mild coronary artery calcifications. Aorta: Normal in course and caliber. Mild atherosclerotic disease. Liver: Within normal limits. No focal lesion. Gallbladder: Unremarkable. No biliary ductal dilatation. Spleen: Normal in size and morphology. No focal lesion. Pancreas: Mild diffuse fatty replacement. No focal lesion or ductal dilatation. Adrenals: Unremarkable, no nodules. Kidneys: Grossly normal in size with symmetric enhancement. No urolithiasis or hydroureteronephrosis. Several bilateral small simple appearing renal cysts. Bladder: Underdistended, grossly unremarkable. Reproductive Organs: Status post hysterectomy. Unremarkable adnexal regions. Bowel: Small hiatal hernia. Unremarkable stomach and small bowel. No evidence of obstruction. Appendix not definitively identified but there are no pericecal inflammatory changes. Extensive colonic diverticulosis without evidence for active diverticulitis/colitis. Peritoneum / Retroperitoneum: No ascites or free air. No enlarged or morphologically suspicious abdominopelvic lymph nodes. Bones: Multiple heterogeneous sclerotic bone lesions primarily throughout the spine, most prominent involving the T1, T2, T9, and T12 vertebral bodies, with subtle sclerotic bony lesions involving the sternum, most likely reflecting metastatic disease related to breast cancer. Multiple additional subtle sclerotic bony lesions throughout the pelvis. No pathologic fracture. Mild multilevel degenerative changes of the spine. Soft Tissues: Right-sided prepectoral breast implant with heavily calcified capsule. Probable chronic intracapsular implant rupture. Unchanged nodular soft tissue density focus at the superior posteromedial aspect of the implant capsule, may reflect a focal extracapsular rupture, but is indeterminate. Interval removal of the left breast implant with persistent fluid collection and surrounding fat stranding in the left breast operative bed, probably postoperative seroma. CT/CT Chest, Abd, Pel w/Contrast IMPRESSION: Evidence for progression of metastatic breast cancer, with nodular soft tissue densities in the breast soft tissues as described. Increased size and number of multiple prominent bilateral axillary/subpectoral, and bilateral internal mammary chain lymph nodes. Numerous heterogeneous sclerotic bone lesions primarily involving the spine, an d subtle lesions involving the sternum and pelvis. Interval removal of the left breast implant with a persistent large presumed po stoperative fluid collection at the operative bed, possibly a seroma. Nonspecific surrounding subcutaneous fat stranding may also be postoperative, but possibly inflammatory given that there is overlying skin thickening. This may also be related to radiation treatment. Correlation with patient's clinical/procedural history and mammography is recommended. No acute or active inflammatory intra-abdominal pathology. No evidence for met astatic disease involvement within the abdomen/pelvis, aside from the aforementioned bone lesions. Reading Location: [id number]
== END | disposition home or self-care (01) ==
LOC: CT 16:25
PROVIDERS: PCP Family Medicine; Referring Provider Internal Medicine Medical Oncology; Visit Provider Internal Medicine Medical Oncology
DX: C50.112 Malignant neoplasm of central portion of left female breast (principal)
CPT/HCPCS: 71260; 74177; Q9967

== ENCOUNTER → 2024-12-25 | Outpatient (CLI) | payer MEDICARE, BC, SELFPAY | END | disposition home or self-care (01) | LOC: NM 09:05 | PROVIDERS: PCP Family Medicine; Referring Provider Internal Medicine Medical Oncology; Visit Provider Internal Medicine Medical Oncology | DX: C50.112 Malignant neoplasm of central portion of left female breast (principal) | CPT/HCPCS: 78306; A9503 ==

== ENCOUNTER 2025-01-22 08:14 | Emergency (ER) | payer MEDICARE, BC, SELFPAY ==
[2025-01-22 08:17] VITALS: BP 128/40; PULSE 75; RESP 18; TEMP 36.7; O2SAT 95; BMI 28.6
[2025-01-22 08:20] VITALS: BP 128/40; PULSE 74; RESP 20; TEMP 36.7; O2SAT 95
--- NOTE | 2025-01-22 08:44 | EKG12_ITS ---
Test Reason : Blood Pressure : */* mmHG Vent. Rate : 73 BPM Atrial Rate : 73 BPM P-R Int : 152 ms QRS Dur : 96 ms QT Int : 402 ms P-R-T Axes : 69 33 151 degrees QTcB Int : 442 ms Sinus rhythm with Premature supraventricular complexes Nonspecific ST and T wave abnormality Abnormal ECG Confirmed by Rudy Valencia ([id number]), order editor CHRISTIAN CR ([id number]) on 01/23/2025 10:19:31 AM Referred By: Confirmed By: Rudy Valencia
--- NOTE | 2025-01-22 08:47 | EX.ED.DYSGE1 ---
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 Family states that she has been dealing with weakness and pain associated with her cancer over the past 2 to 3 days seems of worsened. They note that her voice is hoarse. Family's concern for dehydration. States she is not eating or drinking much. Patient denies any falls. Does continue to have some nausea no vomiting. Denies any other URI symptoms such as nasal congestion, rhinorrhea or cough. Patient denies any abdominal pain. No report of any urinary symptoms. Patient states her pain seems to be worsening every day. It is worse in her left back area. This morning and took her 30 minutes just to get dressed with assistance of her and they called 911 and brought her in. Family does note that yesterday she did not take any of her medication until the evening time. She did sleep through the night. When asked why she did not take the medication patient indicates that her stomach was upset however she also states that she has Zofran to take. Patient follows with Dr. Ariza. She is currently on tamoxifen. She also recently received an infusion of Zometa for her bone pain. Per her note on 01/17/2025 her pain medication regiment was increased to morphine sulfate ER 30 mg twice a day and continued on a course of dexamethasone and oxycodone 5/325 every 6 as well [address]rox[address]. [facility] Medical History Loss of hearing Wears glasses Post-menopausal Anxiety Alcohol use Headache History of diverticulosis Shortness of breath on exertion Non-smoker History of stress test Breast cancer Mass of left breast High cholesterol HTN (hypertension) Home Medications ?Medication ?Instructions ?Recorded ?Last Taken ?Type aspirin 81 mg tablet 324 mg PO QDAY 10/27/24 11/21/24 12:00 History lisinopril 40 mg tablet 40 mg PO QDAY 10/27/24 11/20/24 History pravastatin 10 mg tablet 10 mg PO QDAY 10/27/24 11/20/24 History acetaminophen 325 mg tablet 650 mg (2 x 325 mg) PO Q4H PRN PRN 11/23/24 01/21/25 Rx Pain 1-10 Or Fever #0 tabs tamoxifen 20 mg tablet 100 mg (5 x 20 mg) PO QDAY #150 12/19/24 01/20/25 Rx tabs polysaccharide iron complex 150 mg 150 mg PO ONCE #90 caps 12/20/24 01/20/25 Rx iron capsule (Ferrex) dexamethasone 4 mg tablet 4 mg PO QDAY #14 tabs 01/17/25 01/20/25 Rx morphine 30 mg tablet,extended 30 mg PO Q12H 15 days #30 tabs 01/17/25 01/21/25 Rx release naproxen 500 mg tablet 500 mg PO BID #14 tabs 01/17/25 01/20/25 Rx oxycodone-acetaminophen 5 mg-325 1 tab PO Q6H PRN pain 15 days #60 01/17/25 01/20/25 Rx mg tablet tabs sennosides 8.6 mg tablet (Laxative 17.2 mg PO DAILY 01/22/25 01/20/25 History (sennosides)) Allergy/AdvReac Type Severity Reaction Status Date / Time adhesive Allergy Rash Verified 01/22/25 08:17 Family History Daughter Breast cancer Father Heart disease Surgical History S/P left mastectomy Hx of colonoscopy Hx of tonsillectomy S/P hysterectomy S/P bilateral breast implants Social History Smoking Status: Never smoker alcohol intake: current alcohol intake frequency: holidays/special occasions only substance use type: does not use additional social history: pt denies blood clotting issues denies vaping, denies edibles, denies marijuana use. ROS ROS ED Constitutional Constitutional ED: Reports other Details: Generalized weakness, poor appetite ; Denies chills or fever(s) ENT ENT ED: Reports other Details: Hoarse voice ; Denies rhinorrhea or sore throat Cardiovascular Cardiovascular: Denies chest pain Respiratory/Chest Respiratory/Chest: Denies cough or dyspnea Gastrointestinal Gastrointestinal: Reports nausea; Denies abdominal pain or vomiting Musculoskeletal Musculoskeletal: Reports back pain Integumentary Denies rash Neurologic Neurologic: Reports weakness; Denies headache(s) or paresthesias Hematologic/Lymphatic Hematologic/Lymphatic: Denies easy bleeding or easy bruising EXAM Physical Exam Const Vital Signs: 01/22/25 08:17 01/22/25 08:20 01/22/25 08:20 Temperature 98.0 F 98.0 F Temperature Source Oral Oral Pulse Rate 75 74 Respiratory Rate 18 20 H Respiratory Pattern Normal Blood Pressure 128/40 H 128/40 H Blood Pressure Mean 69 69 Pulse Ox 95 95 Oxygen Delivery Method Room Air Room Air 01/22/25 10:52 01/22/25 11:00 01/22/25 12:00 Temperature 98.9 F 98.7 F Temperature Source Oral Oral Pulse Rate 80 85 85 Respiratory Rate 16 16 23 H Respiratory Pattern Blood Pressure 98/40 L 101/73 108/32 L Blood Pressure Mean 59 82 57 Pulse Ox 98 97 96 Oxygen Delivery Method Room Air Room Air Room Air 01/22/25 12:28 Temperature 98.6 F Temperature Source Pulse Rate 90 Respiratory Rate 27 H Respiratory Pattern Blood Pressure 130/48 H Blood Pressure Mean 75 Pulse Ox 97 Oxygen Delivery Method Positive well nourished and well developed General Appearance ED: well developed and NAD HEENT Reports TM's clear and dry mucous membranes Tympanic Membrane ED: Yes TM's clear Mouth ED: Yes dry mucous membranes Mouth: dry mucous membranes Neck supple and no JVD Chest Wall inspection of chest normal and palpation of chest normal Resp normal respiratory effort and clear to auscultation bilaterally Cardio regular rate and regular rhythm GI normal to inspection, nondistended, normoactive bowel sounds and non-tender Back/Spine no CVA tenderness Back/Spine Narrative: Patient points to her left lower back paraspinal area as her area of pain however it is not highly reproducible Thoracic Spine / Upper Back: Negative for thoracic spinal tenderness Lumbar Spine / Lower Back: Negative for lumbar spinal tenderness Extremity normal to inspection Neuro oriented x3, CN's II-XII intact bilaterally and no sensory deficits noted Sensorium / Orientation: alert Motor Exam: strength 5/5 throughout and general weakness Psych mental status grossly normal Skin no rashes or lesions noted and no wounds MDM MDM MDM Narrative Medical decision making narrative: Patient is evaluated for generalized weakness. She has been dealing with ongoing left back pain and is receiving pain medication from oncology for this. For the last 2 days has been more weak and cannot get out of bed now so she came in. Differential includes cancer related debility, RAQUEL, underlying infection, electrolyte derangement, symptomatic anemia. Patient initially given IV fluids as clinically she appears dehydrated. She is given Zofran for her symptoms. Patient is found to have a profound leukocytosis of 40.1 with a left shift. This appears acute. She is mildly anemic with a hemoglobin 11.6. Lactate is added on which is less than 1. Her BMP does show an RAQUEL with a creatinine of 2.99 (baseline is 1). Bicarb is mildly low and she has metabolic acidosis but no other electrolyte derangements.-See troponin stable at 25 and 23, lower suspicion for ACS as a cause of her weakness. Urinalysis does show nitrates in the urine and signs of UTI with greater than 100 white blood cells and 1+ bacteria. Culture sent. Blood cultures were added on. Due to her degree of leukocytosis I did obtain CT imaging of the chest abdomen pelvis looking for another source for possible obstructing kidney stone given that she is having this left flank pain. Her CT shows extensive pneumomediastinum as well as free air in the abdomen with extensive sigmoid diverticulosis and concern for possible ruptured sigmoid diverticulum. This was discussed with radiology, Dr. Pierre. I then discussed the case with general surgery, Dr. Dennis. She came down to evaluate the patient. Will start patient on broad-spectrum antibiotics (vancomycin and Zosyn). Additional liter of IV fluids is ordered she did have a soft blood pressure. At this time she is not requiring pressor support. She feels that given her degree of pneumomediastinum she would benefit from transfer where there is thoracic surgery backup in case her perforation is higher up. Family is agreeable. Patient is transferred to [facility]. Case discussed with general surgery on-call, Dr. Hess as well as emergency medicine physician for report, Dr. Pillai. Patient will be transferred. Family understands the severity of her diagnosis and the high chance of morbidity and mortality as well as likely requiring emergent surgery. Patient is kept NPO. Lab Data Attestation: I reviewed the patient's lab results. Labs: Laboratory Results - last 24 hr 01/22/25 01/22/25 01/22/25 09:03 09:45 10:51 WBC 40.1 H* RBC 4.01 L Hgb 11.6 L Hct 36.7 L MCV 91.5 MCH 28.9 MCHC 31.6 L RDW Std Deviation 45.1 H RDW Coeff of John 13.3 Plt Count 350 MPV 10.6 Immature Gran % (Auto) 1.700 H Neut % (Auto) 86.3 H Lymph % (Auto) 3.8 L Williamson % (Auto) 7.3 Eos % (Auto) 0.7 Baso % (Auto) 0.2 Absolute Neuts (auto) 34.6 H Absolute Lymphs (auto) 1.51 Nucleated RBC % 0 Diff Path Review May foll Platelet Estimate ADEQUATE Sodium 137 Potassium 4.0 Chloride 103 Carbon Dioxide 17.6 L Anion Gap 16 H BUN 63 H Creatinine 2.99 H Estim Creat Clear Calc 12.86 L Est GFR (MDRD) Non-Af 15 L BUN/Creatinine Ratio 21.0 H Glucose 99 Lactic Acid < 1.0 Calcium 7.7 Troponin T High Sens 25 H Troponin T Hi Sens 2 Hr 23 H Urine Color Urine Clarity Urine pH Ur Specific Mcdonough Urine Protein Urine Glucose (UA) Urine Ketones Urine Occult Blood Urine Nitrite Urine Bilirubin Urine Urobilinogen Ur Leukocyte Esterase Urine RBC Urine WBC Ur Squamous Epith Cells Ur Renal Epithelial Cell Urine Bacteria Urine Mucus 01/22/25 11:06 WBC RBC Hgb Hct MCV MCH MCHC RDW Std Deviation RDW Coeff of John Plt Count MPV Immature Gran % (Auto) Neut % (Auto) Lymph % (Auto) Williamson % (Auto) Eos % (Auto) Baso % (Auto) Absolute Neuts (auto) Absolute Lymphs (auto) Nucleated RBC % Diff Path Review Platelet Estimate Sodium Potassium Chloride Carbon Dioxide Anion Gap BUN Creatinine Estim Creat Clear Calc Est GFR (MDRD) Non-Af BUN/Creatinine Ratio Glucose Lactic Acid Calcium Troponin T High Sens Troponin T Hi Sens 2 Hr Urine Color Yellow Urine Clarity Cloudy Urine pH 5.0 Ur Specific Mcdonough 1.020 Urine Protein 100 H Urine Glucose (UA) Normal Urine Ketones 5 H Urine Occult Blood 50 H Urine Nitrite Positive H Urine Bilirubin 1 H Urine Urobilinogen 1 H Ur Leukocyte Esterase 500 H Urine RBC 0 SEEN Urine WBC >100 SEEN Ur Squamous Epith Cells 5-10 SEEN Ur Renal Epithelial Cell 0-5 SEEN Urine Bacteria 1+ Urine Mucus 0 SEEN Radiography Diagnostic Testing: Clinical Impression(s) from Imaging Studies Chest X-Ray 01/22/25 09:05 IMPRESSION: No acute infiltrate. Stable calcified granuloma in the peripheral lateral aspect of the left upper lobe. Reading Location: [id number] Chest/Abdomen/Pelvis CT 01/22/25 10:05 IMPRESSION: Pneumomediastinum. Atelectasis in both lungs as described. Free intraperitoneal air as well as retroperitoneal air. Extensive sigmoid diverticulosis. Small amount of free fluid in the cul-de-sac. Small amount of free fluid in the pelvis. Status post hysterectomy. Degenerative changes of the visualized thoracic and lumbar spines with evidence of bony metastasis. Red Alert: Free air,retroperitoneal air. Pneumomediastinum The critical information above was relayed directly by me by telephone to Brittanie Sexton on 01/22/2025 at 11:04 am with readback verification. Reading Location: [facility] Rhythm Strip Rhythm Strip: Sinus Rhythm Rate: 73 Ectopy: None EKG Initial EKG: Attestation: I personally reviewed and interpreted this EKG as follows: Interpretation: Sinus Rhythm Comments: Normal sinus rhythm of 73 bpm Normal axis PVC present Normal ST segments No significant change compared to prior EKG Management Discussion w/another healthcare provider: Bin Worker and Radiologist Critical Care Time Critical Care Time: Yes Critical care time (excluding procedures): 30-74 minutes (45), Discussing w/Patient &/or Family/Slasher Tender Helper, Discussing w/Consultants and Arranging Admission or Transfer Discharge Plan Triage Chief Complaint: Weakness ED Provider: Brittanie Sexton Dx/Rx/DC Orders Clinical Impression: Pneumoperitoneum, Carcinoma of left breast metastatic to bone, Pneumomediastinum, Leukocytosis, Sepsis, RAQUEL (acute kidney injury) Prescriptions: No Action lisinopril 40 mg tablet 40 mg PO QDAY pravastatin 10 mg tablet 10 mg PO QDAY aspirin 81 mg tablet 324 mg PO QDAY tamoxifen 20 mg tablet 100 mg PO QDAY Qty: 150 2RF morphine 30 mg tablet extended release 30 mg PO Q12H 15 Days Qty: 30 0RF oxycodone-acetaminophen 5-325 mg tablet 1 tab PO Q6H PRN (Reason: pain) 15 Days Qty: 60 0RF naproxen 500 mg tablet 500 mg PO BID Qty: 14 1RF dexamethasone 4 mg tablet 4 mg PO QDAY Qty: 14 0RF acetaminophen 325 mg Tablet 650 mg PO Q4H PRN PRN (Reason: Pain 1-10 Or Fever) Qty: 0 0RF sennosides [Laxative (sennosides)] 8.6 mg tablet 17.2 mg PO DAILY polysaccharide iron complex [Ferrex 150] 150 mg iron capsule 150 mg PO ONCE Qty: 90 3RF Primary Care Provider: Tomás Baker Referrals: Tomás Baker MD [Primary Care Provider] - Print Language: Slovenian Disposition Disposition: Acute Care Hospital Discharge Location: [facility]
[2025-01-22] MEDS: 0.9% Normal Saline (1000mL) 1,000 ML 1000 ML IV (08:55)
--- NOTE | 2025-01-22 09:05 | RAD_ITS ---
PROCEDURE: CHEST 1 VIEW (PORTABLE) 01/22/2025 REASON FOR EXAM: WEAKNESS TECHNIQUE: Frontal view of the chest. COMPARISON: December 09, 2022. FINDINGS: Hardware: EKG electrodes are seen. Right breast prostheses. Heart: Borderline cardiomegaly. Lungs: Stable calcified granuloma in the peripheral lateral aspect of the left upper lobe. Bones: Degenerative changes are identified within the thoracic spine. Other: Calcification of the aortic arch. RAD/Chest 1 View (Portable) IMPRESSION: No acute infiltrate. Stable calcified granuloma in the peripheral lateral aspect of the left upper l obe. Reading Location: [id number]
[2025-01-22 09:15] LABS: Hematocrit 36.7 % (37-47); Hemoglobin 11.6 g/dL (12.0-15.0); Immature Granulocytes Count 0.680 X10^3/uL (0.0-0.0); Mean Corp Hgb Conc 31.6 g/dL (32-36); Mean Corpuscular Volume 91.5 fL (81-99); Mean Platelet Vol. 10.6 fl (6.2-12.0); NRBC Flagged by Analyzer 0 % (0-5); POSITIVE COUNT YES; POSITIVE DIFFERENTIAL YES; Platelet Count 350 K/mm3 (150-450); RBC Distribution Width CV 13.3 % (11.6-14.6); RBC Distribution Width SD 45.1 fl (35.1-43.9); Red Blood Count 4.01 M/mm3 (4.2-5.4)
[2025-01-22 09:23] LABS: Differential Indicated SCAN CRITERIA MET; White Blood Count 40.1 K/mm3 (4.4-11.0)
[2025-01-22 09:49] LABS: Anion Gap 16 (5-15); BUN 63 mg/dL (4-19); BUN/Creat Ratio 21.0 RATIO (10-20); Calcium,Total 7.7 mg/dL (7.6-11.0); Carbon Dioxide 17.6 mmol/L (21.0-32.0); Chloride 103 mmol/L (98-108); Estimated Creatinine Clearance 12.86 ml/min (50-250); Glucose 99 mg/dL (70-99); Potassium 4.0 mmol/L (3.3-5.1)
--- NOTE | 2025-01-22 10:05 | CT_ITS ---
PROCEDURE: CT CHEST, ABD, PELVIS WO CONT 01/22/2025 REASON FOR EXAM: LEUKOCYTOSIS, FLANK PAIN, RAQUEL, HX CA History of metastatic breast cancer. TECHNIQUE: Chest, abdomen and pelvis CT without intravenous contrast. Coronal and Sagittal reconstruction series were provided. One or more dose reduction techniques were used (e.g., Automated exposure control, adjustment of the mA and/or kV according to patient size, use of iterative reconstruction technique. No oral contrast. RADIATION DOSE SUMMARY: CTDlvol: 10.4 mGy DLP: 930.54 mGycm COMPARISON: Prior study dated December 14, 2024. FINDINGS: CT CHEST: Hardware: A right-sided breast implant is seen with diffuse calcification of the rim of the implant. This is unchanged. Lymph nodes: Increased size of the right axillary lymph node as compared to prior study. It presently measures 11 mm. Punctate calcifications are seen within it. There is also evidence of enlarged left axillary lymph node. The largest measuring 10.5 mm. There is evidence of a pneumomediastinum. Air is seen surrounding the heart anteriorly as well as the aorta in the posterior mediastinum as well as the esophagus. Air is also seen within the pretracheal space. Heart and Vasculature: Heart size upper limits of normal. No pericardial effusion. Atherosclerotic calcifications of the thoracic aorta. Thoracic aorta and pulmonary arteries have normal contours; noncontrast technique limits evaluation. Coronary Artery Calcifications: Present Lungs and Airways: Findings suggestive of scarring and/or atelectasis in the anterior medial aspect of the right upper lobe as well as the right middle lobe and lower lobes. Focal atelectasis in the lingula segment of the left upper lobe. Pleura: No significant pleural effusion. Bones: Degenerative changes of the thoracic spine. There is evidence of sclerotic metastasis of lower thoracic and upper lumbar vertebrae with loss of height of the T12 vertebrae. CT ABDOMEN / PELVIS: Noncontrast technique limits evaluation of the abdominal and pelvic viscera. There is evidence of free retroperitoneal air as well as foci of free intraperitoneal air along the anterior aspect of the upper abdomen as well as in the perisplenic space. Free intraperitoneal air is also seen in the pelvis and lower abdomen. Liver: Normal size. No mass. Gallbladder: Unremarkable Spleen: Normal size. Pancreas: Diffuse fatty atrophy. Adrenals: Unremarkable Kidneys: Normal renal sizes. No hydronephrosis. Bladder: Unremarkable Reproductive Organs: Prior hysterectomy. Adnexal regions are unremarkable. Bowel: Diffuse sigmoid diverticulosis. Appendix: Not identified. Lymph nodes: Unremarkable. Vasculature: Mild diffuse atherosclerotic calcifications are noted. Peritoneum / Retroperitoneum: Free retroperitoneal and small amount of intraperitoneal air. Small amount of free fluid in the pelvis. Bones: Degenerative changes of the spine. Loss of height of the T12 vertebrae with sclerosis suggestive of possible metastatic deposits. CT/CT Chest, Abd, Pelvis WO Cont IMPRESSION: Pneumomediastinum. Atelectasis in both lungs as described. Free intraperitoneal air as well as retroperitoneal air. Extensive sigmoid div erticulosis. Small amount of free fluid in the cul-de-sac. Small amount of free fluid in the pelvis. Status post hysterectomy. Degenerative changes of the visualized thoracic and lumbar spines with evidence of bony metastasis. Red Alert: Free air,retroperitoneal air. Pneumomediastinum The critical information above was relayed directly by me by telephone to Brittanie Garcia on 01/22/2025 at 11:04 am with readback verification. Reading Location: [id number]
[2025-01-22 10:52] VITALS: BP 98/40; PULSE 80; RESP 16; TEMP 37.2; O2SAT 98
[2025-01-22 11:00] VITALS: BP 101/73; PULSE 85; RESP 16; TEMP 37.1; O2SAT 97
[2025-01-22 11:09] LABS: Mucous, Urine 0 SEEN /hpf (<or=2+); Red Blood Cells-Urine 0 SEEN /hpf (0-5)
[2025-01-22 11:17] LABS: Troponin T High Sensitivity 25 ng/L (<=14)
[2025-01-22 11:22] LABS: Color, Urine Yellow (Yellow); Glucose, Dipstick Normal (Normal); Ketone-Dipstick 5 mg/dl (Negative); Leukocyte Esterase-Dipstick 500 /ul (Negative); Nitrite-Dipstick Positive (Negative); Occult Blood-Urine 50 /ul (Negative); Protein-Dipstick 100 mg/dl (Negative); Specific Gravity, Urine 1.020 (1.002-1.030)
[2025-01-22 11:29] LABS: Urine Bilirubin Dipstick 1 mg/dL (Negative)
[2025-01-22 11:34] LABS: Squamous Epithelial Cells - UA 5-10 SEEN /hpf (5-10)
[2025-01-22] MEDS: Vancomycin HCl 1,000 MG in 0.9% Normal Saline (250mL Bag) 250 ML 250 MG IV (11:36)
[2025-01-22] MEDS: 0.9% Normal Saline (1000mL) 1,000 ML 999 ML IV (11:37)
[2025-01-22 11:45] LABS: Troponin T High Sens 2 HR 23 ng/L (<=14)
--- NOTE | 2025-01-22 11:53 | EX.PCM.CON.S ---
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 Patient does have significant amount of pneumomediastinum as well as near the retroperitoneal free air in pneumoperitoneum --- near GE junction, mesentery of small bowel right upper quadrant, mesentery of sigmoid colon. Discussed with family would recommend transfer to a tertiary care facility due to the possibility of an upper GI source of the free air. Patient and family are agreeable with plan. Patient getting IV Zosyn and vancomycin in ER. Karely Dennis M.D. Pager: [phone] [facility] [address] [place] [address], Outpatient [facility], [address] [place] [id number] Office: [phone] HPI Consult Data Date of Consult: 01/22/25 HPI Narrative HPI Narrative: KARL CABA, is a 80 F who presents to the ER due to weakness. Patient states she started on tamoxifen a few weeks ago states she has had more pain after starting the medication. patient is on tamoxifen due to metastatic breast cancer to the bone. Patient also complains of back pain and left flank pain in the last several days. Patient also states she has had a hoarse voice for the last few days as well. Denies any other cold symptoms. Patient was seen oncology on 01/17 and did have with white blood cell count at that time of 19- patient is on dexamethasone. Patient is also on aspirin as well as naproxen and Oxy IR and morphine for bone pain/back pain. Patient denies abdominal pain but also states that she has high pain tolerance, which her family agrees. CT chest/abdomen/pelvis without contrast due to RAQUEL?creatinine 2.99?showed pneumoperitoneum due to sigmoid colon as well as in the lesser sac and near the GE junction as well as pneumomediastinum. Patient white blood cell count 40 9, UA positive nitrates, 500 leuk esterase, 1+ bacteria and 5-10 squamous epithelial cells. Patient did get IV Zosyn. [facility] Medical History Loss of hearing Wears glasses Post-menopausal Anxiety Alcohol use Headache History of diverticulosis Shortness of breath on exertion Non-smoker History of stress test Breast cancer Mass of left breast High cholesterol HTN (hypertension) Home Medications ?Medication ?Instructions ?Recorded ?Last Taken ?Type aspirin 81 mg tablet 324 mg PO QDAY 10/27/24 11/21/24 12:00 History lisinopril 40 mg tablet 40 mg PO QDAY 10/27/24 11/20/24 History pravastatin 10 mg tablet 10 mg PO QDAY 10/27/24 11/20/24 History acetaminophen 325 mg tablet 650 mg (2 x 325 mg) PO Q4H PRN PRN 11/23/24 01/21/25 Rx Pain 1-10 Or Fever #0 tabs tamoxifen 20 mg tablet 100 mg (5 x 20 mg) PO QDAY #150 12/19/24 01/20/25 Rx tabs polysaccharide iron complex 150 mg 150 mg PO ONCE #90 caps 12/20/24 01/20/25 Rx iron capsule (Ferrex) dexamethasone 4 mg tablet 4 mg PO QDAY #14 tabs 01/17/25 01/20/25 Rx morphine 30 mg tablet,extended 30 mg PO Q12H 15 days #30 tabs 01/17/25 01/21/25 Rx release naproxen 500 mg tablet 500 mg PO BID #14 tabs 01/17/25 01/20/25 Rx oxycodone-acetaminophen 5 mg-325 1 tab PO Q6H PRN pain 15 days #60 01/17/25 01/20/25 Rx mg tablet tabs sennosides 8.6 mg tablet (Laxative 17.2 mg PO DAILY 01/22/25 01/20/25 History (sennosides)) Allergy/AdvReac Type Severity Reaction Status Date / Time adhesive Allergy Rash Verified 01/22/25 08:17 Family History Daughter Breast cancer Father Heart disease Surgical History S/P left mastectomy Hx of colonoscopy Hx of tonsillectomy S/P hysterectomy S/P bilateral breast implants Social History Smoking Status: Never smoker alcohol intake: current alcohol intake frequency: holidays/special occasions only substance use type: does not use additional social history: pt denies blood clotting issues denies vaping, denies edibles, denies marijuana use. ROS Constitutional Constitutional: Denies fever(s) Eyes Eyes: Denies loss of central vision ENT HEENT: Reports hearing loss Cardiovascular Cardiovascular: Denies chest pain Respiratory/Chest Respiratory/Chest: Denies productive cough Gastrointestinal Gastrointestinal: Denies abdominal pain, nausea or vomiting Genitourinary Genitourinary: Denies hematuria Musculoskeletal Musculoskeletal: Reports back pain Integumentary Integumentary: Denies jaundice Neurologic Neurologic: Reports weakness Endocrine Endocrinology: Denies palpitations Physical Exam Const alert, oriented x3 and no apparent distress HEENT normocephalic and head/scalp atraumatic Resp normal respiratory effort Cardio regular rate GI soft to palpation; Negative for non-distended Palpation: tender LLQ (On deep palpation) and other (Left flank on deep palpation, no peritoneal signs); Negative for guarding Extremity no clubbing, cyanosis or edema Neuro CN's II-XII intact bilaterally Psych mental status grossly normal Lab / Micro Data 01/22/25 09:03 01/22/25 09:03 Labs: Laboratory Results - last 24 hr 01/22/25 09:03: WBC 40.1 H*, RBC 4.01 L, Hgb 11.6 L, Hct 36.7 L, MCV 91.5, MCH 28.9, MCHC 31.6 L, RDW Std Deviation 45.1 H, RDW Coeff of John 13.3, Plt Count 350, MPV 10.6, Immature Gran % (Auto) 1.700 H, Neut % (Auto) 86.3 H, Lymph % (Auto) 3.8 L, Cassia % (Auto) 7.3, Eos % (Auto) 0.7, Baso % (Auto) 0.2, Absolute Neuts (auto) 34.6 H, Absolute Lymphs (auto) 1.51, Nucleated RBC % 0, Diff Path Review September, Platelet Estimate ADEQUATE, Sodium 137, Potassium 4.0, Chloride 103, Carbon Dioxide 17.6 L, Anion Gap 16 H, BUN 63 H, Creatinine 2.99 H, Estim Creat Clear Calc 12.86 L, Est GFR (MDRD) Non-Af 15 L, BUN/Creatinine Ratio 21.0 H, Glucose 99, Calcium 7.7, Troponin T High Sens 25 H 01/22/25 09:45: Lactic Acid < 1.0 01/22/25 10:51: Troponin T Hi Sens 2 Hr 23 H 01/22/25 11:06: Urine Color Yellow, Urine Clarity Cloudy, Urine pH 5.0, Ur Specific [place] 1.020, Urine Protein 100 H, Urine Glucose (UA) Normal, Urine Ketones 5 H, Urine Occult Blood 50 H, Urine Nitrite Positive H, Urine Bilirubin 1 H, Urine Urobilinogen 1 H, Ur Leukocyte Esterase 500 H, Urine RBC 0 SEEN, Urine WBC >100 SEEN, Ur Squamous Epith Cells 5-10 SEEN, Ur Renal Epithelial Cell 0-5 SEEN, Urine Bacteria 1+, Urine Mucus 0 SEEN Imaging Radiology Impression Chest X-Ray 01/22/25 09:05 IMPRESSION: No acute infiltrate. Stable calcified granuloma in the peripheral lateral aspect of the left upper lobe. Reading Location: [id number] Chest/Abdomen/Pelvis CT 01/22/25 10:05 IMPRESSION: Pneumomediastinum. Atelectasis in both lungs as described. Free intraperitoneal air as well as retroperitoneal air. Extensive sigmoid diverticulosis. Small amount of free fluid in the cul-de-sac. Small amount of free fluid in the pelvis. Status post hysterectomy. Degenerative changes of the visualized thoracic and lumbar spines with evidence of bony metastasis. Red Alert: Free air,retroperitoneal air. Pneumomediastinum The critical information above was relayed directly by me by telephone to Brittanie Sexton on 01/22/2025 at 11:04 am with readback verification. Reading Location: [id number] Charges/Coding Visit Charges Inpatient E&M: 52736 Init Hosp L3
[2025-01-22 12:00] VITALS: BP 108/32; PULSE 85; RESP 23; O2SAT 96
[2025-01-22 12:28] VITALS: BP 130/48; PULSE 90; RESP 27; TEMP 37; O2SAT 97
== END 2025-01-22 13:12 | disposition short-term general hospital (02) ==
PROVIDERS: Emergency Provider Emergency Medicine; PCP Family Medicine; Visit Provider Emergency Medicine
DX: A41.9 Sepsis, unspecified organism (principal); C79.51 Secondary malignant neoplasm of bone; J98.2 Interstitial emphysema; C50.912 Malignant neoplasm of unspecified site of left female breast; Z79.82 Long term (current) use of aspirin; D72.829 Elevated white blood cell count, unspecified; Z79.810 Long term (current) use of selective estrogen receptor modulators (SERMs); E87.20 Acidosis, unspecified; N17.9 Acute kidney failure, unspecified; D63.0 Anemia in neoplastic disease; I10 Essential (primary) hypertension; K57.30 Diverticulosis of large intestine without perforation or abscess without bleeding; E78.00 Pure hypercholesterolemia, unspecified; N39.0 Urinary tract infection, site not specified
CPT/HCPCS: 71045; 71250; 74176; 80048; 81001; 83605; 84484; 85025; 87040; 87077; 87086; 87088; 87186; 93005; 96361; 96365; 96366; 96367; 96375; 99285; A4216; J2405